=== PATIENT | male | born 1935 | race Caucasian/White ===

== ENCOUNTER 2017-01-28 13:18 | Inpatient (IN) ==
--- NOTE | 2017-01-28 13:45 | Emergency Department Report ---
Medical Clearance HPI - General Chief complaint: Medical Clearance Stated complaint: [facility] eval Time Seen by Provider: 01/28/17 13:36 Source: patient, RN notes reviewed, other (report from PA) Mode of arrival: wheelchair Limitations: altered mental status - History of Present Illness HPI Narrative: Pt presents from PA who report pt has become violent and dangerous to himself and others at the PA. Pt has a history of dementia. Is currently pleasant and answering questions, however inaccurate MD complaint: medical clearance requested Onset (ago): day(s) Reason for Medical Clearance: psychiatric condition Compliant with Home Medications: Yes Associated Symptoms: denies other symptoms Treatments Prior to Arrival: medication Home medications: Home Medications Medication Instructions Recorded Confirmed Acetaminophen 650 mg PO TID 01/28/17 01/28/17 Allopurinol [Zyloprim] 300 mg PO DAILY 01/28/17 01/28/17 Aspirin *EC* [Ecotrin] 81 mg PO DAILY 01/28/17 01/28/17 Carvedilol [Carvedilol] 6.25 mg PO BID 01/28/17 01/28/17 ClonazePAM [Klonopin] 1 mg PO HS 01/28/17 01/28/17 Clopidogrel Bisulfate [Clopidogrel] 75 mg PO DAILY 01/28/17 01/28/17 Furosemide [Lasix] 40 mg PO DAILY 01/28/17 01/28/17 Guaifenesin/P-Ephed 600/60 Tab 1 tab PO Q12HR 01/28/17 01/28/17 [Mucinex D] Insulin Glargine [Lantus] 22 units SQ BID 01/28/17 01/28/17 Lisinopril [Prinivil] 2.5 mg PO HS 01/28/17 01/28/17 Lovastatin [Mevacor] 20 mg PO HS 01/28/17 01/28/17 OLANZapine [Olanzapine] 5 mg PO DAILY 01/28/17 01/28/17 Oxycodone HCl [Oxaydo] 5 mg PO HS 01/28/17 01/28/17 Potassium Chloride [K-Tab ER] 20 meq PO DAILY 01/28/17 01/28/17 Ranitidine [Zantac] 150 mg PO BID 01/28/17 01/28/17 Tamsulosin [Flomax] 0.4 mg PO DAILY 01/28/17 01/28/17 Venlafaxine HCl [Venlafaxine HCl 150 mg PO HS 01/28/17 01/28/17 ER] Review of Systems Limitations: ROS unobtainable due to patient's medical condition PFS Patient Stated Medical History Cerebrovascular Accident Yes Dementia Yes Cataracts Yes Congestive Heart Failure Yes Myocardial Infarction Yes Chronic Obstructive Pulmonary Yes Disease (COPD) Diabetes Mellitus Type 2 Yes Gastroesophageal Reflux Yes Disease Hx Benign Prostatic Yes Hyperplasia Osteoarthritis Yes Physical Exam - Limitations Limitations: other (dementia) - General General appearance: alert, in no apparent distress - Normal Exams: Head:: Normocephalic without trauma Eyes:: Pupils are PERRLA w/ EOMI Neck:: Full range of motion, without adenopathy Chest/Respirations:: Clear all noel, with good airflow, and symmetry bilaterally Cardiovascular:: Regular rate and rhythm, without murmur or gallop, Pulses 2+ all extremities, capillary refill, <2 seconds all extremities Abdomen:: Bowel sounds positive, soft, non-tender, non-distended Musculoskeletal:: No tenderness, or deformity noted, good range of motion, all extremities Integumentary:: No rashes Neurological:: Patient is alert Psychiatric:: Patient exhibits, appropriate attention, emotion and affect Course Vital Signs Temperature 97.8 F 01/28/17 13:20 Pulse Rate 96 01/28/17 13:20 Respiratory Rate 16 01/28/17 13:20 Blood Pressure 153/65 H 01/28/17 13:20 Pulse Oximetry 97 01/28/17 13:20 Temperature 97.8 F 01/28/17 13:20 Pulse Rate 90 01/28/17 15:28 Respiratory Rate 16 01/28/17 15:28 Blood Pressure 130/61 01/28/17 15:28 Pulse Oximetry 94 01/28/17 15:28 Medical Clearance - MDM Narrative Medical decision making narrative: Labs and records reviewed and consistent with a UTI. Pt started on Levoquin and IVF. Dr Metzger notified and will admit to medical. Pt remains cooperative with staff and treatment - Differential Diagnosis Likely: urinary tract infection (dehydration, demntia, depression, psychosis) - Medical Records Attestation: I reviewed the patient's medical records. - Lab Data Attestation: I reviewed the patient's lab results. Result diagrams: 01/28/17 14:10 01/28/17 14:10 Lab Results 01/28/17 01/28/17 01/28/17 Range/Units 13:34 13:34 13:34 WBC (4.5-11.0) T/MM3 RBC (4.50-5.90) M/MM3 Hgb (13.5-17.5) GM/DL Hct (41-53) % MCV (80-100) UM3 MCH (26-34) UUG MCHC (31-37) GM/DL RDW Std Deviation (36.9-50.2) FL Plt Count (130-400) T/MM3 MPV (9.4-12.4) UM3 Immature Gran % (Auto) (0.0-0.5) % Neut % (Auto) (33-66) % Lymph % (Auto) (23-45) % Shelby % (Auto) (0-9.0) % Eos % (Auto) (0-4) % Baso % (Auto) (0-2) % Neut # (Auto) (1.8-7.7) T/MM3 Lymph # (Auto) (1-4.8) T/MM3 Shelby # (Auto) (0-0.8) T/MM3 Eos # (Auto) (0-0.5) T/MM3 Baso # (Auto) (0-0.2) T/MM3 Abs Immat Gran (auto) (0.00-0.03) T/MM3 Turbidity (0-20) Sodium (134-144) MEQ/L Potassium (3.6-5) MEQ/L Chloride (98-107) MEQ/L Carbon Dioxide (22-30) MEQ/L Anion Gap (5-15) MEQ/L BUN (9-20) MG/DL Creatinine (0.8-1.5) MG/DL GFR Calculation BUN/Creatinine Ratio (6-26) RATIO Glucose (75-110) MG/DL Calculated Osmolality (261-280) MOSM/KG Calcium (8.4-10.2) MG/DL Total Bilirubin (0.20-1.30) MG/DL Icterus Index (0-7) AST (17-59) U/L ALT (21-72) U/L Alkaline Phosphatase (38-126) U/L Total Protein (6.3-8.2) G/DL Albumin (3.5-5.0) G/DL Globulin (2.4-3.6) G/DL Albumin/Globulin Ratio (1.1-2.2) RATIO Specimen Hemolysis (0-25) Ur Collection Type Urine, clean catch Urine Color Yellow (YELLOW) Urine Clarity Sl cloudy Urine pH 7.0 (5.0-8.0) Ur Specific [place] 1.010 L (1.015-1.025) Urine Protein Negative (NEGATIVE) Urine Glucose (UA) Negative (NEGATIVE) Urine Ketones Negative (NEGATIVE) Urine Occult Blood Trace-intact (NEGATIVE) Urine Nitrate Negative (NEGATIVE) Urine Bilirubin Negative (NEGATIVE) Urine Urobilinogen 0.2 (NORMAL) EU/DL Ur Leukocyte Esterase 2+ A (NEGATIVE) Urine RBC 1-3 (0-3) /HPF Urine WBC 50-200 H (0-5) /HPF Urine Bacteria 3+ H (NEGATIVE) Ur Culture Indicated? Cult reflexed &setup Salicylates (2-20) MG/DL Urine Opiates Screen Negative ng/mL Ur Oxycodone Screen Positive ng/mL Urine Methadone Screen Negative ng/mL Ur Propoxyphene Screen Negative ng/mL Acetaminophen (10-30) UG/ML Ur Barbiturates Screen Negative ng/mL U Tricyclic Antidepress Negative ng/mL Ur Phencyclidine Scrn Negative ng/mL Ur Amphetamines Screen Negative ng/mL U Methamphetamines Scrn Negative ng/mL U Benzodiazepines Scrn Positive ng/mL Urine Cocaine Screen Negative ng/mL U Cannabinoids Screen Negative ng/mL Ur Drug Screen Confirm Sent out 01/28/17 01/28/17 Range/Units 14:10 14:10 WBC 7.0 (4.5-11.0) T/MM3 RBC 4.21 L (4.50-5.90) M/MM3 Hgb 12.0 L (13.5-17.5) GM/DL Hct 40.2 L (41-53) % MCV 95.5 (80-100) UM3 MCH 28.5 (26-34) UUG MCHC 29.9 L (31-37) GM/DL RDW Std Deviation 54.0 H (36.9-50.2) FL Plt Count 244 (130-400) T/MM3 MPV 10.2 (9.4-12.4) UM3 Immature Gran % (Auto) 0.1 (0.0-0.5) % Neut % (Auto) 62.2 (33-66) % Lymph % (Auto) 24.8 (23-45) % [place] % (Auto) 6.5 (0-9.0) % Eos % (Auto) 5.5 H (0-4) % Baso % (Auto) 0.9 (0-2) % Neut # (Auto) 4.4 (1.8-7.7) T/MM3 Lymph # (Auto) 1.7 (1-4.8) T/MM3 [place] # (Auto) 0.5 (0-0.8) T/MM3 Eos # (Auto) 0.4 (0-0.5) T/MM3 Baso # (Auto) 0.1 (0-0.2) T/MM3 Abs Immat Gran (auto) 0.01 (0.00-0.03) T/MM3 Turbidity < 20 (0-20) Sodium 142 (134-144) MEQ/L Potassium 4.4 (3.6-5) MEQ/L Chloride 108 H (98-107) MEQ/L Carbon Dioxide 27 (22-30) MEQ/L Anion Gap 7 (5-15) MEQ/L BUN 24.0 H (9-20) MG/DL Creatinine 1.0 (0.8-1.5) MG/DL GFR Calculation 71 BUN/Creatinine Ratio 24 (6-26) RATIO Glucose 180 H (75-110) MG/DL Calculated Osmolality 282 H (261-280) MOSM/KG Calcium 9.2 (8.4-10.2) MG/DL Total Bilirubin 0.30 (0.20-1.30) MG/DL Icterus Index < 2 (0-7) AST 14 L (17-59) U/L ALT 23 (21-72) U/L Alkaline Phosphatase 94 (38-126) U/L Total Protein 6.8 (6.3-8.2) G/DL Albumin 3.5 (3.5-5.0) G/DL Globulin 3.3 (2.4-3.6) G/DL Albumin/Globulin Ratio 1.1 (1.1-2.2) RATIO Specimen Hemolysis < 15 (0-25) Ur Collection Type Urine Color (YELLOW) Urine Clarity Urine pH (5.0-8.0) Ur Specific [place] (1.015-1.025) Urine Protein (NEGATIVE) Urine Glucose (UA) (NEGATIVE) Urine Ketones (NEGATIVE) Urine Occult Blood (NEGATIVE) Urine Nitrate (NEGATIVE) Urine Bilirubin (NEGATIVE) Urine Urobilinogen (NORMAL) EU/DL Ur Leukocyte Esterase (NEGATIVE) Urine RBC (0-3) /HPF Urine WBC (0-5) /HPF Urine Bacteria (NEGATIVE) Ur Culture Indicated? Salicylates < 1.0 L (2-20) MG/DL Urine Opiates Screen ng/mL Ur Oxycodone Screen ng/mL Urine Methadone Screen ng/mL Ur Propoxyphene Screen ng/mL Acetaminophen < 10 L (10-30) UG/ML Ur Barbiturates Screen ng/mL U Tricyclic Antidepress ng/mL Ur Phencyclidine Scrn ng/mL Ur Amphetamines Screen ng/mL U Methamphetamines Scrn ng/mL U Benzodiazepines Scrn ng/mL Urine Cocaine Screen ng/mL U Cannabinoids Screen ng/mL Ur Drug Screen Confirm Disposition Clinical Impression: Urinary tract infection Qualifiers: Urinary tract infection type: acute cystitis Hematuria presence: with hematuria Qualified Code(s): N30.01 - Acute cystitis with hematuria Dementia Qualifiers: Dementia type: unspecified type Dementia behavioral disturbance: with behavioral disturbance Qualified Code(s): F03.91 - Unspecified dementia with behavioral disturbance [place]: 02 To [facility] [place] Care Condition: Improved Prescriptions: No Action Aspirin *EC* [Ecotrin] 81 mg PO DAILY Allopurinol [Zyloprim] 300 mg PO DAILY Acetaminophen 650 mg PO TID Clopidogrel Bisulfate [Clopidogrel] 75 mg PO DAILY Guaifenesin/P-Ephed 600/60 Tab [Mucinex D] 1 tab PO Q12HR Lisinopril [Prinivil] 2.5 mg PO HS Insulin Glargine [Lantus] 22 units SQ BID Venlafaxine HCl [Venlafaxine HCl ER] 150 mg PO HS Ranitidine [Zantac] 150 mg PO BID Potassium Chloride [K-Tab ER] 20 meq PO DAILY Carvedilol [Carvedilol] 6.25 mg PO BID ClonazePAM [Klonopin] 1 mg PO HS Furosemide [Lasix] 40 mg PO DAILY Oxycodone HCl [Oxaydo] 5 mg PO HS Lovastatin [Mevacor] 20 mg PO HS Tamsulosin [Flomax] 0.4 mg PO DAILY OLANZapine [Olanzapine] 5 mg PO DAILY Time of Disposition: 15:48 - Seen By: midlevel
--- OUTSIDE RECORDS SUMMARY | 2017-01-28 14:02 | External Medical Summary | Clinical Summary ---
:[address] [facility] Address [address] [address] Phone Support Name Relationship Address Phone Unavailable Unavailable [address] [place] [address] Unavailable Unavailable Unavailable Unavailable Allergies Active Allergy Reactions Severity Noted Date Comments Diazepam arms swell Hydromorphone severe drowsiness (Too loopy) Indomethacin Unknown Pneumococcal Vaccine Swelling 05/05/2015 Current Medications Prescription Sig. Disp. Refills Start Date End Date Status aspirin EC One po daily 0 0 08/21/2012 Active (ECOTRIN) 81 MG EC tablet nitroglycerin One under your 25 tablet 1 10/12/2015 Active (NITROSTAT) 0.4 MG tongue every 5 SL tablet minutes for chest pain (max 3 doses) Blood Glucose Glucose 1 each 0 10/12/2015 Active Monitoring Suppl Monitor: Use to [facility] check blood glucose three times daily, Dx: E11.65 ONETOUCH DELICA USE UP TO THREE 100 each 3 04/18/2016 Active LANCETS 33G TIMES A DAY MISCIndications: (DX: E11.65) Type 2 diabetes mellitus with complication, with long-term current use of insulin ([facility]) ONETOUCH ULTRA BLUE USE TO TEST UP 100 strip 4 06/27/2016 Active test TO THREE TIMES stripIndications: A DAY (DX: Uncontrolled type 2 E11.65) diabetes mellitus with diabetic polyneuropathy, with long-term current use of insulin ([facility]) venlafaxine Take 1 capsule 30 capsule 4 08/05/2016 Active (EFFEXOR-XR) 150 MG (150 mg total) 24 hr capsule by mouth daily. Insulin USE TWO TIMES 180 each 3 08/07/2016 Active Syringe-Needle DAILY FOR U-100 (B-D INS SYR LANTUS ULTRAFINE 1CC/30G) INJECTIONS 30G X 1/2" 1 ML MISCIndications: Type 2 diabetes mellitus with complication, with long-term current use of insulin ([facility]) tamsulosin (FLOMAX) Take 1 capsule 30 capsule 5 08/12/2016 Active 0.4 MG (0.4 mg total) CAPSIndications: by mouth daily. Benign non-nodular prostatic hyperplasia with lower urinary tract symptoms lovastatin TAKE ONE TABLET 30 tablet 5 08/12/2016 Active (MEVACOR) 20 MG BY MOUTH EVERY tabletIndications: NIGHT AT Mixed BEDTIME hyperlipidemia lisinopril TAKE 1 TABLET 30 tablet 5 08/12/2016 Active (PRINIVIL,ZESTRIL) BY MOUTH ONCE 2.5 MG DAILY. tabletIndications: Essential hypertension clopidogrel Take 1 tablet 30 tablet 5 08/12/2016 Active (PLAVIX) 75 MG (75 mg total) tabletIndications: by mouth daily. Chronic systolic heart failure (HCC) carvedilol (COREG) Take 1 tablet 60 tablet 08/12/2016 Active 6.25 MG (6.25 mg total) tabletIndications: by mouth 2 Chronic systolic (two) times heart failure (HCC) daily. with meals allopurinol Take 1 tablet 30 tablet 5 08/12/2016 Active (ZYLOPRIM) 300 MG (300 mg total) tablet by mouth daily. furosemide (LASIX) Take 1 tablet 30 tablet 5 08/13/2016 Active 40 MG tablet (40 mg total) by mouth daily. NEXIUM 40 MG TAKE ONE 30 capsule 08/13/2016 Active capsule CAPSULE BY MOUTH DAILY potassium chloride Take 20 mEq by Active SA (K-DUR,KLOR-CON) mouth daily. 20 MEQ tablet oxyCODONE Take 1 tablet 30 tablet 0 01/13/2017 Active (ROXICODONE) 5 MG (5 mg total) by immediate release mouth at tablet bedtime. May also take once daily PRN Earliest Fill Date: 01/13/17 ranitidine (ZANTAC) Take 150 mg by 01/13/2017 Active 150 MG tablet mouth 2 (two) times daily. insulin glargine Inject 0.22 mLs 90 mL 2 01/13/2017 Active (LANTUS) 100 (22 Units UNIT/ML total) into the injectionIndication skin 2 (two) s: Uncontrolled times daily. type 2 diabetes mellitus with diabetic polyneuropathy, with long-term current use of insulin ([facility]) clonazePAM TAKE ONE TABLET 28 tablet 0 01/16/2017 Active (KLONOPIN) 1 MG BY MOUTH tablet NIGHTLY OLANZapine Take 1 tablet 30 tablet 3 01/22/2017 Active (ZYPREXA) 5 MG (5 mg total) by tabletIndications: mouth at Late onset bedtime. Alzheimer's disease with behavioral disturbance acetaminophen Take 1 tablet 30 tablet 0 01/24/2017 Active (TYLENOL 8 HOUR (650 mg total) ARTHRITIS PAIN) 650 by mouth 3 MG CR tablet (three) times daily. Cream Base (PCCA Give 0.5ml 1 g 0 01/27/2017 Active LIPODERM BASE) CREA topically as needed every 6 hours for agitation. insulin glargine Inject 0.2 mLs 90 mL 2 11/05/2016 Discontinued (LANTUS) 100 (20 Units 7 UNIT/ML total) into the injectionIndication skin 2 (two) s: Uncontrolled times daily. type 2 diabetes mellitus with diabetic polyneuropathy, with long-term current use of insulin (HCC) oxycodone-acetamino Take 1-2 168 tablet 0 12/05/2016 Discontinued phen (PERCOCET) tablets by 7 5-325 mouth every 4 MGIndications: (four) hours as Chronic pain needed for syndrome Moderate Pain. Earliest Fill Date: 12/05/16 oxyCODONE Take 1 tablet 30 tablet 0 12/19/2016 Discontinued (ROXICODONE) 5 MG (5 mg total) by 7 immediate release mouth at tablet bedtime. May also take once daily PRN clonazePAM TAKE ONE TABLET 28 tablet 0 12/20/2016 Discontinued (KLONOPIN) 1 MG BY MOUTH 7 tablet NIGHTLY Liniments Apply topically Discontinued (MEDICATED SKIN every 4 (four) 7 CREAM EX) hours as needed. Ativan cream. Cream Base (PCCA Give 0.5ml 1 g 0 01/14/2017 Discontinued LIPODERM BASE) CREA topically as 7 needed every 6 hours for agitation. Active Problems Patient Care Coordination Note [facility] Problem Noted Date Late onset Alzheimer's disease with behavioral disturbance 01/13/2017 Last Assessment & Plan: Recent behaviors with anger outbursts and disruptive behaviors. Start Zyprexa as ordered. Consult Dr Harrington. Notify office of continued or worsened behaviors. Hold plan to discharge at this time. Type 2 diabetes mellitus without complication, with long-term current use of insulin ([facility]) Last Assessment & Plan: Blood sugars are overall elevated. Increase Lantus insulin to 22 units twice daily. Send blood sugar trends to office after one to weeks. Functional urinary incontinence 10/15/2016 Chronic systolic heart failure (HCC) 10/27/2015 Last Assessment & Plan: Stable. Continue current management. Coronary artery disease involving coronary bypass graft of [place] [facility] 2015 without angina pectoris Non-ST elevation MO (NSTEMI) ([facility]) 10/27/2015 Alzheimer's disease 05/05/2015 Mixed hyperlipidemia Essential hypertension Last Assessment & Plan: Blood pressure is currently controlled. Continue current management with carvedilol, lisinopril. 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 Not on anticoagulation due to high fall risk. Continue same. Dysthymic disorder Other chronic pain Type 2 diabetes mellitus, uncontrolled ([facility]) Obesity, unspecified Encounters Date Type Specialty Care Team Description 01/28/2017 Telephone Hussain Hsu MD Calling For Orders 01/27/2017 Telephone Hussain Hsu MD Calling For Orders 01/24/2017 Telephone Hussain Hsu MD Calling For Orders 01/22/2017 Skilled Nursing Madison Manjarrez, Late onset Alzheimer's [employer] disease with behavioral disturbance (Primary Dx) 01/21/2017 Telephone Madison Manjarrez, Results (faxed to [facility] home. ) 01/20/2017 Orders Only Link, Onbase 01/16/2017 Refill Madison Manjarrez, Medication Refill [employer] 01/15/2017 Telephone Madison Manjarrez, Medication Management [employer] (refill resend) 01/14/2017 Refill Madison Manjarrez, Medication Refill [employer] 01/13/2017 Skilled Nursing Madison Manjarrez, Chronic systolic heart [employer] failure (HCC) (Primary Dx);Late onset Alzheimer's disease with behavioral disturbance;Chronic atrial fibrillation (HCC);Essential hypertension;Type 2 diabetes mellitus without complication, with long-term current use of insulin ([facility]);Uncontrolled type 2 diabetes mellitus with diabetic polyneuropathy, with long-term current use of insulin ([facility]) 01/13/2017 Abstract Madison Manjarrez, [employer] 01/13/2017 Telephone Fell, Garfield Elizabeth, Medication Management [employer] (review of medication per [facility] pharmacy) 01/13/2017 Refill Fell, Garfield Elizabeth, Medication Refill [employer] 01/13/2017 Telephone Fell, Garfield Elizabeth, Calling For Orders [employer] (increased agitation) 01/07/2017 Telephone Fell Garfield Elizabeth, Results (lab completed at [facility]) 12/30/2016 Skilled Nursing Fell, Garfield Elizabeth, Acute cystitis without [employer] hematuria (Primary Dx);Acute right hemiparesis (HCC);Chronic systolic heart failure (HCC);Late onset Alzheimer's disease with behavioral disturbance;Essential hypertension;Type 2 diabetes mellitus without complication, with long-term current use of insulin (HCC) 12/26/2016 Orders Only Link, Onbase 12/24/2016 Telephone Fell Garfield Elizabeth, Calling For Orders [employer] (medication review) 12/24/2016 Telephone Josseline Garfield Elizabeth, Calling For Orders [employer] (requesting lab) 12/23/2016 [facility] Scan Link, Onbase 12/23/2016 Telephone Josseline Garfield Elizabeth, Calling For Orders [employer] (witnessed floor) 12/20/2016 Telephone Hussain Hsu MD Calling With Results 12/20/2016 Refill Madison Manjarrez Elizabeth, Medication Refill [employer] 12/19/2016 Telephone Coco Manjarrezl Elizabeth, Calling For Orders [employer] (medication management) 12/17/2016 Orders Only Hussain Hsu MD Acute right hemiparesis (HCC) (Primary Dx) 12/16/2016 Office Visit Hussain Hsu MD Acute right hemiparesis (HCC) (Primary Dx);Chronic systolic heart failure (HCC);Late onset Alzheimer's disease with behavioral disturbance;Essential hypertension;Chronic atrial fibrillation (HCC);Dysthymic disorder;Uncontrolled type 2 diabetes mellitus with diabetic polyneuropathy, with long-term current use of insulin (HCC);Coronary artery disease involving coronary bypass graft of [place] without angina pectoris 12/16/2016 Telephone Josseline, Garfield Elizabeth, Results (lab results [employer] reviewed) 12/13/2016 Telephone Josseline Garfield Elizabeth, Calling For Orders [employer] 12/12/2016 [facility] Scan Link, Onbase 12/12/2016 Abstract Hussain Hsu MD 12/11/2016 Refill JosselineMadisongy, Medication Refill [employer] 12/05/2016 Refill Hussain Hsu MD Medication Refill 11/05/2016 Refill Hussain Hsu MD Medication Refill from Last 3 Months Immunizations Name Dates Previously Given Next Due INFLUENZA IIV3 HD (Adults=>65 12/07/2016, 12/05/2014, 11/15/2013 y/o-FLUZONE HD) Influenza IIV3 PFree 01/06/2012, 01/04/2011, 11/25/2008, 01/26/2008, 12/30/2006, 12/30/2005 Influenza TIV (HX thru Nov 30 2009) 12/16/2003 Pneumococcal Polysaccharide (23-valent) 03/03/2001 Td(adult), adsorbed 08/11/1998 Tdap 08/22/2014 Family History Medical History Relation Name Comments No Known Problems Father No Known Problems Mother Relation Name Status Comments Father Mother Social History Tobacco Use Types Packs/Day Years Used Date Former Smoker Smokeless Tobacco: Never Used Tobacco Cessation: Counseling Given: No Comments: Quit smoking: Year stopped 1997/Number of yrs: 35.00/Packs per day: 2.00/Pac* Alcohol Use Drinks/Week oz/Week Comments No Alcoholic Drinks/day: Never Sex Assigned at Date Recorded Not on file Last Filed Vital Signs Vital Sign Reading Time Taken Blood Pressure 124/78 12/16/2016 9:56 AM CDT Pulse 70 12/16/2016 9:56 AM CDT Temperature 36.8 C (98.2 F) 10/15/2016 11:21 AM CDT Respiratory Rate 20 10/15/2016 11:21 AM CDT Oxygen Saturation 97% 10/15/2016 11:21 AM CDT Inhaled Oxygen Concentration - - Weight 99.3 kg (219 lb) 10/15/2016 11:21 AM CDT Height 162.6 cm (5' 4.02") 12/16/2016 9:56 AM CDT Body Mass Index 37.57 10/15/2016 11:21 AM CDT Plan of Treatment Health Maintenance Due Date Last Done Comments Zoster Vaccine (#1) 1993 Annual Wellness Visit 08/03/1999 Ophthalmology Exam 09/20/2007 09/19/2006 Diabetic Foot Exam 12/06/2015 12/05/2014, 11/15/2013, 11/15/2013, Additional history exists DTaP,Tdap,and Td Vaccines (2 - Td) 08/22/2024 08/22/2014, 08/11/1998 Influenza Vaccine Completed 12/07/2016, 12/05/2014, 11/15/2013, Additional history exists Goals Patient Goal Type Goal Recent Progress Patient-Stated? Author Weight Weight (lb) < 99.3 kg (219 lb) Hussain Coulter K, 200 (10/15/2016 11:21 MD RUIZ CDT) Results MRI Brain (without contrast) (12/20/2016) Impressions See scanned document and phone note dated 12-20-16 from Last 3 Months
--- OUTSIDE RECORDS SUMMARY | 2017-01-28 14:02 | External Medical Summary | Encounter Summary ---
:1935 Author Organization [facility] Address [address] [address] Phone Care Team Providers Name Role Phone Unavailable Primary Care Provider Unavailable Reason for Visit Reason Comments Calling For Orders Encounter Details Date Type Department Care Team Description 01/28/2017 Telephone Cotton Miki`Jose Juan Internal Hussain Hsu MD Calling For Orders Medicine - [place] [address] [place] [address] [place] [phone] [id number] Social History Tobacco Use Types Packs/Day Years Used Date Former Smoker Smokeless Tobacco: Never Used Comments: Quit smoking: Year stopped 1997/Number of yrs: 35.00/Packs per day: 2.00/Pac* Alcohol Use Drinks/Week oz/Week Comments No Alcoholic Drinks/day: Never Sex Assigned at Date Recorded Not on file as of this encounter Plan of Treatment Not on fileas of this encounter Goals Patient Goal Type Goal Recent Progress Patient-Stated? Author Weight Weight (lb) < 99.3 kg (219 lb) No Hussain Hsu, 200 (10/15/2016 11:21 MD RUIZ CDT) as of this encounter Visit Diagnoses Not on filein this encounter
--- OUTSIDE RECORDS SUMMARY | 2017-01-28 14:03 | External Medical Summary | Encounter Summary ---
:1935 Author Organization [facility] Address [address] [address] Phone Care Team Providers Name Role Phone Unavailable Primary Care Provider Unavailable Reason for Visit Reason Comments Calling For Orders Encounter Details Date Type Department Care Team Description 01/27/2017 Telephone Cotton Miki`Jose Juan Internal Hussain Hsu MD Calling For Orders Medicine - [place] [address] [place] [address] [place] [phone] [id number] Social History Tobacco Use Types Packs/Day [...]
--- OUTSIDE RECORDS SUMMARY | 2017-01-28 14:03 | External Medical Summary | Encounter Summary ---
:1935 Author Organization [facility] Address [address] [address] Phone Care Team Providers Name Role Phone Unavailable Primary Care Provider Unavailable Reason for Visit Reason Comments Results faxed to long-term. Encounter Details Date Type Department Care Team Description 01/21/2017 Telephone Mendez Guerrero Internal Madison Manjarrez, Results ( faxed to [facility]. ) [address] [place] [address] [place] [address] Social History Tobacco Use Types Packs/Day Years [...] < 99.3 kg (219 lb) No Hussain Hsu K, 200 (10/15/2016 11:21 MD RUIZ CDT) as of this encounter Visit Diagnoses Not on filein this encounter
--- OUTSIDE RECORDS SUMMARY | 2017-01-28 14:03 | External Medical Summary | Encounter Summary ---
:1935 Author Organization [facility] Address [address] [address] Phone Care Team Providers Name Role Phone Unavailable Primary Care Provider Unavailable Reason for Visit Reason Comments Calling For Orders Encounter Details Date Type Department Care Team Description 01/24/2017 Telephone Cotton Miki`Jose Juan Internal Hussain Hsu MD Calling For Orders Medicine - [place] [address] [place] [address] [place] [phone] Social History Tobacco Use Types Packs/Day [...]
--- OUTSIDE RECORDS SUMMARY | 2017-01-28 14:03 | External Medical Summary | Encounter Summary ---
:1935 Author Organization [facility] Address [address] [address] Phone Care Team Providers Name Role Phone Unavailable Primary Care Provider Unavailable Reason for Visit Reason Comments Acute Visit Agitation Encounter Details Date Type Department Care Team Description 01/22/2017 Detention Cotton O`Jose Juan Internal Madison Manjarrez Late onset Alzheimer's Medicine - [place] Johnson APRN disease with behavioral [address] disturbance ([place] [address] [place]) [phone] [address] Social History Tobacco Use Types Packs/Day Years Used Date Former Smoker Smokeless Tobacco: Never Used Comments: Quit smoking: Year stopped 1997/Number of yrs: 35.00/Packs per day: 2.00/Pac* Alcohol Use Drinks/Week oz/Week Comments No Alcoholic Drinks/day: Never Sex Assigned at Date Recorded Not on file as of this encounter Progress Notes Madison Manjarrez APRN - 01/22/2017 2:20 PM CSTFormatting of this note may be different from the original. [facility], [facility] Progress Note 01/22/2017 Name: Raffi Sandoval : 1935 Facility: [facility] Type of Visit: Acute Visit Raffi Sandoval is a 81 y.o. male who had concerns including Acute Visit and Agitation. HPI/Current Issues: Patient is seen this day for increased in behaviors. Order provided earlier this day for an extra when necessary dose of topical lorazepam due to agitation. Patient yelling at the nurses was belligerent behavior, urinating on himself up at the nurses desk. Prescribed anti-anxiety medications already utilized. I did go to assess patient at this visit, however he appeared to be resting peacefully in his room. I did not awaken him. The patient is wanting to return home. According to nursing staff, the daughter wants him to be ableto ambulate or have some increased care of himself prior to coming home. Physical therapy had planned to do a home visit to assess for safety measures. Patient Active Problem List Diagnosis Mixed hyperlipidemia Essential hypertension longterm (current) use of anticoagulants Atrial fibrillation ([facility]) Dysthymic disorder Other chronic pain Type 2 diabetes mellitus, uncontrolled ([facility]) Obesity, unspecified Alzheimer's disease Chronic systolic heart failure ([facility]) Coronary artery disease involving coronary bypass graft of qagan tayagungin heart without angina pectoris Non-ST elevation MA (NSTEMI) ([facility]) Functional urinary incontinence Late onset Alzheimer's disease with behavioral disturbance Type 2 diabetes mellitus without complication, with long-term current use of insulin ([facility]) Past Medical History: Diagnosis Date Alzheimer's disease 05/05/2015 Chest pain, unspecified Admit Date: [id number]; [facility]; Hussain Hsu MD; [facility] Chronic systolic heart failure (HCC) 10/27/2015 Essential hypertension Mixed hyperlipidemia [facility] Past Hospitalization Admit on: [id number]; Diagnosis: Gouty arthritis with lt. ankle pain; at: [facility]; Keith aVzquez MD; [facility] Non-ST elevation MA (NSTEMI) ([facility]) 10/27/2015 Current Outpatient Prescriptions: allopurinol (ZYLOPRIM) 300 MG tablet, Take 1 tablet (300 mg total) by mouth daily., Disp: 30 tablet, Rfl: 5 aspirin EC (ECOTRIN) 81 MG EC tablet, One po daily, Disp: 0, Rfl: 0 Blood Glucose Monitoring Suppl [facility], Glucose Monitor: Use to check blood glucose three times daily, Dx: E11.65, Disp: 1 each, Rfl: 0 carvedilol (COREG) 6.25 MG tablet, Take 1 tablet (6.25 mg total) by mouth 2 (two) times daily. with meals, Disp: 60 tablet, Rfl: 5 clonazePAM (KLONOPIN) 1 MG tablet, TAKE ONE TABLET BY MOUTH NIGHTLY, Disp: 28 tablet, Rfl: 0 clopidogrel (PLAVIX) 75 MG tablet, Take 1 tablet (75 mg total) by mouth daily., Disp: 30 tablet, Rfl: 5 Cream Base (PCCA LIPODERM BASE) CREA, Give 0.5ml topically as needed every 6 hours for agitation., Disp: 1 g, Rfl: 0 furosemide (LASIX) 40 MG tablet, Take 1 tablet (40 mg total) by mouth daily., Disp: 30 tablet, Rfl: 5 insulin glargine (LANTUS) 100 UNIT/ML injection, Inject 0.22 mLs (22 Units total) into the skin2 (two) times daily., Disp: 90 mL, Rfl: 2 Insulin Syringe-Needle U-100 (B-D INS SYR ULTRAFINE 1CC/30G) 30G X 1/2" 1 ML MISC, USE TWO TIMES DAILY FOR LANTUS INJECTIONS, Disp: 180 each, Rfl: 3 lisinopril (PRINIVIL,ZESTRIL) 2.5 MG tablet, TAKE 1 TABLET BY MOUTH ONCE DAILY., Disp: 30 tablet, Rfl: 5 lovastatin (MEVACOR) 20 MG tablet, TAKE ONE TABLET BY MOUTH EVERY NIGHT AT BEDTIME, Disp: 30 tablet, Rfl: 5 NEXIUM 40 MG capsule, TAKE ONE CAPSULE BY MOUTH DAILY, Disp: 30 capsule, Rfl: 5 nitroglycerin (NITROSTAT) 0.4 MG SL tablet, One under your tongue every 5 minutes for chest pain (max 3 doses), Disp: 25 tablet, Rfl: 1 OLANZapine (ZYPREXA) 5 MG tablet, Take 1 tablet (5 mg total) by mouth at bedtime., Disp: 30 tablet, Rfl: 3 ONETOUCH DELICA LANCETS 33G MISC, USE UP TO THREE TIMES A DAY (DX: E11.65) , Disp: 100 each, Rfl: 3 ONETOUCH ULTRA BLUE test strip, USE TO TEST UP TO THREE TIMES A DAY (DX: E11.65), Disp: 100 strip, Rfl: 4 oxyCODONE (ROXICODONE) 5 MG immediate release tablet, Take 1 tablet (5 mg total) by mouth at bedtime. May also take once daily PRN Earliest Fill Date: , Disp: 30 tablet, Rfl: 0 potassium chloride SA (K-DUR,KLOR-CON) 20 MEQ tablet, Take 20 mEq by mouth daily., Disp: , Rfl: ranitidine (ZANTAC) 150 MG tablet, Take 150 mg by mouth 2 (two) times daily., Disp: , Rfl: tamsulosin (FLOMAX) 0.4 MG CAPS, Take 1 capsule (0.4 mg total) by mouth daily., Disp: 30 capsule, Rfl: 5 venlafaxine (EFFEXOR-XR) 150 MG 24 hr capsule, Take 1 capsule (150 mg total ) by mouth daily., Disp: 30 capsule, Rfl: 4 ~(Please see current medication tab for complete and accurate medication profile.) Allergies Allergen Reactions Diazepam arms swell Hydromorphone severe drowsiness (Too loopy) Indomethacin Unknown Pneumococcal Vaccine Swelling Family History Problem Relation Age of Onset No Known Problems Mother No Known Problems Father Social History Social History Marital status: Spouse name: N/A Number of children: N/A Years of education: Some High school Social History Main Topics Smoking status: Former Smoker Smokeless tobacco: Never Used Comment: Quit smoking: Year stopped 1997/Number of yrs: 35.00/Packs per day: 2.00/Pac* Alcohol use No Comment: Alcoholic Drinks/day: Never Drug use: No Sexual activity: No Other Topics Concern Caffeine Concern Yes Coffee, tea, pop, chocolate/5 cups /day Seat Belt Yes 100 % Permanently Non-Ambulatory? No Social History Narrative Review of Systems: Review of Systems Unable to perform ROS: Other (Resting after administration of topical lorazepam. ) Physical Exam: Last documented Vitals: 122/65, 97.3, 90, 18, 95% room air. Physical Exam Constitutional: He appears well-developed and well-nourished. Sleeping /resting at this time, lying in bed in his room; no sign or symptom of pain or distress appreciated. Cardiovascular: Normal rate. Pulmonary/Chest: Effort normal. Abdominal: Normal appearance. Musculoskeletal: Normal range of motion. Neurological: He is alert. Labs: Reviewed in chart Code Status: Do Not Resuscitate Assessment and Plan: 1. Late onset Alzheimer's disease with behavioral disturbance Assessment & Plan: Recent behaviors with anger outbursts and disruptive behaviors. Start Zyprexa as ordered. Consult Dr Harrington. Notify office of continued or worsened behaviors. Hold plan to discharge at this time. Orders: - OLANZapine (ZYPREXA) 5 MG tablet; Take 1 tablet (5 mg total) by mouth at bedtime. Follow-up: Follow up PRN and per facility protocol. Elizabeth Manjarrez APRN Electronic Signature 01/22/2017 4:29 PM in this encounter Plan of Treatment Not on fileas of this encounter Goals Patient Goal Type Goal Recent Progress Patient-Stated? Author Weight Weight (lb) < 99.3 kg (219 lb) Hussain Coulter K, 200 (10/15/2016 11:21 MD RUIZ CDT) as of this encounter Visit Diagnoses Diagnosis Late onset Alzheimer's disease with behavioral disturbance - Primary in this encounter
--- OUTSIDE RECORDS SUMMARY | 2017-01-28 14:04 | External Medical Summary | Encounter Summary ---
:1935 Author Organization [facility] Address [address] [address] Phone Care Team Providers Name Role Phone Unavailable Primary Care Provider Unavailable Reason for Visit Reason Comments Medication Refill Encounter Details Date Type Department Care Team Description 01/16/2017 Refill Cotton O`Jose Juan Internal Madison Manjarrez, Medication Refill Medicine - [place] NURSE TECHNICIAN [address] [place] [address] [place], [place] [id number] Social History Tobacco Use Types Packs/Day Years [...]
--- OUTSIDE RECORDS SUMMARY | 2017-01-28 14:04 | External Medical Summary | Encounter Summary ---
:1935 Author Organization [facility] Address [address] [address] Phone Care Team Providers Name Role Phone Unavailable Primary Care Provider Unavailable Reason for Visit Reason Comments Medication Refill Encounter Details Date Type Department Care Team Description 01/14/2017 Refill Cotton O`Jose Juan Internal Madison Manjarrez, Medication Refill Medicine - [place] PROFESSOR COMPUTER SCIENCE [address] [place] [address] [place], [place] [address] Social History Tobacco Use Types Packs/Day Years [...]
--- OUTSIDE RECORDS SUMMARY | 2017-01-28 14:04 | External Medical Summary | Encounter Summary ---
:1935 Author Organization [facility] Address [address] [address] Phone Care Team Providers Name Role Phone Unavailable Primary Care Provider Unavailable Reason for Visit Reason Comments Medication Management refill resend Encounter Details Date Type Department Care Team Description 01/15/2017 Telephone Mendez Guerrero Internal Madison Manjarrez, Medication Management Medicine - [place] WAGE CONCILIATOR (refill resend) [address] [place] [address] [place] [id number] Social History Tobacco Use Types Packs/Day Years [...]
--- OUTSIDE RECORDS SUMMARY | 2017-01-28 14:04 | External Medical Summary | Encounter Summary ---
:1935 Author Organization [facility] Address [address] [address] Phone Care Team Providers Name Role Phone Unavailable Primary Care Provider Unavailable Encounter Details Date Type Department Care Team Description 01/20/2017 Orders Only MULTIPLE TESTS Link, [facility], [place] Social History Tobacco Use Types Packs/Day Years Used Date Former Smoker Smokeless Tobacco: Never Used Comments: Quit smoking: Year stopped 1997/Number of yrs: 35.00/Packs per day: 2.00/Pac* Alcohol Use Drinks/Week oz/Week Comments No Alcoholic Drinks/day: Never Sex Assigned at Date Recorded Not on file as of this encounter Plan of Treatment Pending Results Name Priority Associated Diagnoses Date/Time EXTERNAL LAB TEST 01/14/2017 12:00 AM SAVINGS COUNSELOR as of this encounter Goals Patient Goal Type Goal Recent Progress Patient-Stated? Author Weight Weight (lb) < 99.3 kg (219 lb) Hussain Coulter, 200 (10/15/2016 11:21 MD RUIZ CDT) as of this encounter Visit Diagnoses Not on filein this encounter
--- OUTSIDE RECORDS SUMMARY | 2017-01-28 14:05 | External Medical Summary | Encounter Summary ---
:1935 Author Organization [facility] Address [address] [address] Phone Care Team Providers Name Role Phone Unavailable Primary Care Provider Unavailable Encounter Details Date Type Department Care Team Description 01/13/2017 Abstract Mendez Guerrero Internal Madison Manjarrez APRN Medicine - [place] [address] [place] [address] [place] [address] [place] [address] [phone] Social History Tobacco Use Types Packs/Day Years Used Date Former Smoker Smokeless Tobacco: Never Used Comments: Quit smoking: Year stopped 1997/Number of yrs: 35.00/Packs per day: 2.00/Pac* Alcohol Use Drinks/Week oz/Week Comments No Alcoholic Drinks/day: Never Sex Assigned at Date Recorded Not on file as of this encounter Progress Notes Senait Ramírez MA - 01/13/2017 4:26 PM CSTReceived active medication list from Long-Term. Updated medication list. in this encounter Plan of Treatment Not on fileas of this encounter Goals Patient Goal Type Goal Recent Progress Patient-Stated? Author Weight Weight (lb) < 99.3 kg (219 lb) No Hussain Hsu K, 200 (10/15/2016 11:21 MD RUIZ CDT) as of this encounter Visit Diagnoses Not on filein this encounter
--- OUTSIDE RECORDS SUMMARY | 2017-01-28 14:06 | External Medical Summary | Encounter Summary ---
:1935 Author Organization [facility] Address [address] [address] Phone Care Team Providers Name Role Phone Unavailable Primary Care Provider Unavailable Reason for Visit Reason Comments Medication Management review of medication per [facility] Encounter Details Date Type Department Care Team Description 01/13/2017 Telephone Madison Samuel, Medication Management Medicine - [place] ROJO (review of medication [address] per [facility]) [place] [address] [place] [address] Social History Tobacco Use Types [...]
--- OUTSIDE RECORDS SUMMARY | 2017-01-28 14:06 | External Medical Summary | Encounter Summary ---
:1935 Author Organization [facility] Address [address] [address] Phone Care Team Providers Name Role Phone Unavailable Primary Care Provider Unavailable Reason for Visit Reason Comments Medication Refill Encounter Details Date Type Department Care Team Description 01/13/2017 Refill Cotton O`Jose Juan Internal Madison Manjarrez, Medication Refill Medicine - [place] OIL WELL DRILLING MANAGER [address] [place] [address] [place], [place] [address] Social History Tobacco Use Types Packs/Day Years [...]
--- OUTSIDE RECORDS SUMMARY | 2017-01-28 14:07 | External Medical Summary | Encounter Summary ---
:1935 Author Organization [facility] Address [address] [address] Phone Care Team Providers Name Role Phone Unavailable Primary Care Provider Unavailable Reason for Visit Reason Comments Results lab completed at [facility] Encounter Details Date Type Department Care Team Description 01/07/2017 Telephone Mendez Guerrero Internal Madison Manjarrez, Results (lab completed Medicine - [place] ON AIR DIRECTOR at [facility] [address] [facility] [place] [address] [place] [address] Social History Tobacco Use Types Packs/Day Years Used Date Former Smoker Smokeless Tobacco: Never Used Comments: Quit smoking: Year stopped 1997/Number of yrs: 35.00/Packs per day: 2.00/Pac* Alcohol Use Drinks/Week oz/Week Comments No Alcoholic Drinks/day: Never Sex Assigned at Date Recorded Not on file as of this encounter Plan of Treatment Pending Results Name Priority Associated Diagnoses Date/Time EXTERNAL LAB TEST 01/05/2017 12:00 AM CDT as of this encounter Goals Patient Goal Type Goal Recent Progress Patient-Stated? Author Weight Weight (lb) < 99.3 kg (219 lb) No Hussain Hsu K, 200 (10/15/2016 11:21 MD AM CDT) as of this encounter Visit Diagnoses Not on filein this encounter
--- OUTSIDE RECORDS SUMMARY | 2017-01-28 14:07 | External Medical Summary | Encounter Summary ---
:1935 Author Organization [facility] Address [address] [address] Phone Care Team Providers Name Role Phone Unavailable Primary Care Provider Unavailable Reason for Visit Reason Comments Monthly Follow Up Encounter Details Date Type Department Care Team Description 01/13/2017 [facility] Cotton O`Jose Juan Internal Madison Manjarrez Chronic systolic heart Medicine - [place] Johnson, CONSULTING MANAGER failure (HCC) (Primary [address] [place]);[place] [address] [place], [place] Alzheimer's disease [phone] with behavioral [phone] disturbance;Chronic [phone] atrial fibrillation (Fax) (HCC);Essential hypertension;Type 2 diabetes mellitus without complication, with long-term current use of insulin (HCC);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 [facility] Progress Note 01/13/2017 Name: Raffi Sandoval : 1935 Facility: [facility] Type of Visit: 30 day Raffi Sandoval is a 81 y.o. male who had concerns including Monthly Follow Up. HPI/Current Issues: Raffi is seen this today for routine long term follow-up. At this assessment he is resting in bed. He arouses somewhat to verbal and tactile stimulation. He complains of his "lungs being full". He complains of abdominal discomfort and tenderness with palpation. He recently had a diarrhea episode shortly before this assessment. He is not currently on any laxative therapy. Per nursing report, over this past weekend he had episodes where he was kicking at the doors, yelling at the nurses. He was very agitated and an order was received for Ativan topical cream per on-call physician. He also had a fall yesterday where he landed onto his buttocks without further noted injury. Review of his recent blood sugar trends show overall greatly elevated sugars in the 200s and 300s range. Most recent documented fastin, 182, 182, 187, 217 , 124, 152, 179, 188, 187, 214 etc. His diabetes is currently managed with Lantus 20 units twice daily. Patient Active Problem List Diagnosis Mixed hyperlipidemia Essential hypertension [facility] (current) use of anticoagulants Atrial fibrillation ([facility]) Dysthymic disorder Other chronic pain Type 2 diabetes mellitus, uncontrolled ([facility]) Obesity, unspecified Alzheimer's disease Chronic systolic heart failure ([facility]) Coronary artery disease involving coronary bypass graft of [place] heart without angina pectoris Non-ST elevation [place] (NSTEMI) ([facility]) Functional urinary incontinence Late onset Alzheimer's disease with behavioral disturbance Type 2 diabetes mellitus without complication, with long-term current use of insulin ([facility]) Past Medical History: Diagnosis Date Alzheimer's disease 05/05/2015 Chest pain, unspecified Admit Date: [id number]; [facility]; Hussain Hsu MD; [facility] Chronic systolic heart failure ([facility]) 10/27/2015 Essential hypertension Mixed hyperlipidemia [facility] Past Hospitalization Admit on: [id number]; Diagnosis: Gouty arthritis with lt. ankle pain; at: [facility]; Keith Vazquez MD; HOSP Non-ST elevation [place] (NSTEMI) ([facility]) 10/27/2015 Current Outpatient Prescriptions: allopurinol (ZYLOPRIM) 300 MG tablet, Take 1 tablet (300 mg total) by mouth daily., Disp: 30 tablet, Rfl: 5 aspirin EC (ECOTRIN) 81 MG EC tablet, One po daily, Disp: 0, Rfl: 0 Blood Glucose Monitoring Suppl [facility], Glucose Monitor: Use to check blood glucose [...] mouth daily., Disp: 30 tablet, Rfl: 5 furosemide (LASIX) 40 MG tablet, Take 1 [...] LANTUS INJECTIONS, Disp: 180 each, Rfl: 3 Liniments (MEDICATED SKIN CREAM EX), Apply topically every 4 (four) hours as needed. Ativan cream., Disp: , Rfl: lisinopril (PRINIVIL,ZESTRIL) 2.5 MG tablet, TAKE 1 [...] 3 doses), Disp: 25 tablet, Rfl: 1 ONETOUCH DELICA LANCETS 33G MISC, USE UP [...] Date: , Disp: 30 tablet, Rfl: 0 oxycodone-acetaminophen (PERCOCET) 5-325 MG, Take 1-2 tablets by mouth every 4 (four) hours as needed for Moderate Pain. Earliest Fill Date: 12/05/16, Disp: 168 tablet, Rfl: 0 potassium chloride SA (K-DUR,KLOR-CON) [...] mouth daily., Disp: 30 capsule, Rfl: 4 Allergies Allergen Reactions Diazepam arms swell Hydromorphone [...] Narrative Review of Systems: Review of Systems HENT: Negative. Respiratory: Negative. Cardiovascular: Negative. Gastrointestinal: Positive for abdominal pain. Musculoskeletal: Negative. Skin: Negative. Neurological: Negative. Psychiatric/Behavioral: Positive for behavioral problems and confusion. Physical Exam: Last documented vitals: 120/54, 97.5, 89, 17, 95% room air saturation. Current weight is 209.6 pounds, up 2 pounds over the past 3 weeks. Physical Exam Constitutional: He is oriented to person, place, and time. He appears well- developed and well-nourished. HENT: Head: Normocephalic. Mouth/Throat: Oropharynx is clear and moist. Eyes: Conjunctivae and EOM are normal. Pupils are equal, round, and reactive to light. Neck: Normal range of motion. Neck supple. No JVD present. Cardiovascular: Normal rate and normal heart sounds. An irregularly irregular rhythm present. Pulmonary/Chest: Effort normal and breath sounds normal. Abdominal: Soft. Normal appearance. He exhibits no mass. Bowel sounds are increased. There is tenderness (R mid-lower quad). There is no rebound and no guarding. No organomegaly Musculoskeletal: Normal range of motion. Neurological: He is alert and oriented to person, place, and time. Skin: Skin is warm and dry. Psychiatric: He has a normal mood and affect. Labs: Reviewed in chart Code Status: Do Not Resuscitate Assessment and Plan: 1. Chronic systolic heart failure (HCC) Assessment & Plan: Stable. Continue current management. 2. Late onset Alzheimer's disease with behavioral disturbance Assessment & Plan: Continue topical Ativan as ordered. Continue support and reorientation as needed. 3. Chronic atrial fibrillation (HCC) Assessment & Plan: Currently rate controlled. Not on anticoagulation due to high fall risk. Continue same. 4. Essential hypertension Assessment & Plan: Blood pressure is currently controlled. Continue current management with carvedilol, lisinopril. 5. Type 2 diabetes mellitus without complication, with long-term current use of insulin ([facility]) Assessment & Plan: Blood sugars are overall elevated. Increase Lantus insulin to 22 units twice daily. Send blood sugar trends to office after one to weeks. 6. 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 Continue to monitor diarrhea and abdominal tenderness and notify for worsening or change. Follow-up: Follow up PRN and per facility protocol. Elizabeth Manjarrez APRN Electronic Signature 01/13/2017 3:19 PM in this encounter Plan of Treatment Not on fileas of this encounter Goals Patient Goal Type Goal Recent Progress Patient-Stated? Author Weight Weight (lb) < 99.3 kg (219 lb) Maria E Hussain Hsu K, 200 (10/15/2016 11:21 MD RUIZ CDT) as of this encounter Visit Diagnoses Diagnosis Chronic systolic heart failure (HCC) - Primary Chronic systolic heart failure Late onset Alzheimer's disease with behavioral disturbance Chronic atrial fibrillation (HCC) Atrial fibrillation Essential hypertension Unspecified essential hypertension Type 2 diabetes mellitus without complication, with long-term current use of insulin (HCC) Uncontrolled type 2 diabetes mellitus with diabetic polyneuropathy, with long- term current use of insulin (HCC) in this encounter
--- OUTSIDE RECORDS SUMMARY | 2017-01-28 14:07 | External Medical Summary | Encounter Summary ---
:1935 Author Organization [facility] Address [address] [address] Phone Care Team Providers Name Role Phone Unavailable Primary Care Provider Unavailable Reason for Visit Reason Comments Calling For Orders increased agitation Encounter Details Date Type Department Care Team Description 01/13/2017 Telephone Mendez Guerrero Internal Madison Manjarrez, Calling For Orders Medicine - [place] DARREL (increased agitation) [address] [place] [address] [place] [id number] Social History Tobacco Use Types Packs/Day Years [...]
--- OUTSIDE RECORDS SUMMARY | 2017-01-28 14:07 | External Medical Summary | Encounter Summary ---
:1935 Author Organization [facility] Address [address] [address] Phone Care Team Providers Name Role Phone Unavailable Primary Care Provider Unavailable Reason for Visit Reason Comments Acute Visit ER follow-up Encounter Details Date Type Department Care Team Description 12/30/2016 [facility] Cotton O`Jose Juan Internal Madison Manjarrez Acute cystitis without Medicine - [place] Elizabeth, BAIT TIER hematuria (Primary [address]);[place] [address] [place] hemiparesis [phone] (HCC);Chronic systolic [phone] heart failure [phone] (HCC);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 [facility] Progress Note 12/30/2016 Name: Raffi Sandoval : 1935 Facility: [facility] Type of Visit: Acute Visit Raffi Sandoval is a 81 y.o. male who had concerns including Acute Visit. HPI/Current Issues: Raffi is seen this day for emergency department follow-up. On December 22, he was noted to have increased facial droop and he has history of recent CVA. He was taken to the emergency department for evaluation. He was diagnosed with acute urinary tract infection. Blood work showed essentially normal CBC, CMP with creatinine 1.23, BUN 26, GFR 56. Otherwise normal liver function and electrolytes. He wasgiven IV Rocephin and started on Keflex for outpatient. He also had CT scan which showed no evidenceof acute intracranial abnormality but with age related changes in the brain. Review of recent blood pressure trends show well-controlled pressures ranging from 100s over 50s/ 60s up to 120s over 70s. Blood sugar trends show average range 130s to 160s. He does have a few 200s readings in the afternoons. Fasting blood sugars recently 103, 163, 367, 71, 121, 132, 129. He is currently managed with Lantus insulin 20 units twice daily. Currently denies any complications. Denies shortness of breath, palpitations, chest pain or dizziness. There are no concerns expressed by facility nursing staff. Patient Active Problem List Diagnosis Mixed hyperlipidemia Essential hypertension snf (current) use of anticoagulants Atrial fibrillation (HCC) Dysthymic disorder Other chronic pain Type 2 diabetes mellitus, uncontrolled ([facility]) Obesity, unspecified Alzheimer's disease Chronic systolic heart failure (HCC) Coronary artery disease involving coronary bypass graft of [place] heart without angina pectoris Non-ST elevation [place] (NSTEMI) ([facility]) Functional urinary incontinence Past Medical History: Diagnosis Date Alzheimer's disease 05/05/2015 Chest pain, unspecified Admit Date: [id number]; [facility]; Hussain Hsu MD; HOSP Chronic systolic heart failure ([facility]) 10/27/2015 Essential hypertension Mixed hyperlipidemia [facility] Past Hospitalization Admit on: [id number]; Diagnosis: Gouty arthritis with lt. ankle pain; at: [facility]; Keith Vazquez MD; HOSP Non-ST elevation [place] (NSTEMI) ([facility]) 10/27/2015 Current Outpatient Prescriptions: allopurinol (ZYLOPRIM) 300 MG tablet, Take 1 tablet (300 mg total) by mouth daily., Disp: 30 tablet, Rfl: 5 aspirin EC (ECOTRIN) 81 MG EC tablet, One po daily, Disp: 0, Rfl: 0 Blood Glucose Monitoring Suppl [facility], Glucose Monitor: Use to check blood glucose [...] insulin glargine (LANTUS) 100 UNIT/ML injection, Inject 0.2 mLs (20 Units total) into the skin 2 (two) times daily., Disp: 90 mL, Rfl: [...] at bedtime. May also take once daily PRN, Disp: 30 tablet, Rfl: 0 oxycodone-acetaminophen (PERCOCET) 5-325 MG, Take 1-2 tablets by mouth every 4 (four) hours as needed for Moderate Pain. Earliest Fill Date: 12/05/16, Disp: 168 tablet, Rfl: 0 potassium chloride SA (K-DUR,KLOR-CON) 20 MEQ tablet, Take 20 mEq by mouth daily., Disp: , Rfl: tamsulosin (FLOMAX) 0.4 [...] HENT: Negative. Respiratory: Negative. Cardiovascular: Negative. Gastrointestinal: Negative. Musculoskeletal: Negative. Skin: Negative. Neurological: Negative. Physical Exam: Last documented vitals: 122/71, 97.7, 96, 20, 95% room air saturation. Current weight is 203.4 pounds, down from 209.6. Physical Exam Constitutional: He is oriented to [...] breath sounds normal. Abdominal: Soft. Normal appearance. Musculoskeletal: Normal range of motion. Neurological: He is alert and oriented to person, place, and time. Skin: Skin is warm and dry. Psychiatric: He has a normal mood and affect. Labs: Reviewed in chart Code Status: Do Not Resuscitate Assessment and Plan: 1. Acute cystitis without hematuria Continues on antibiotic. *Recheck UA CI once completed with antibiotic therapy. 2. Acute right hemiparesis (HCC) 3. Chronic systolic heart failure (HCC) Stable at this time. Continue current management with carvedilol, furosemide, lisinopril. 4. Late onset Alzheimer's disease with behavioral disturbance 5. Essential hypertension Well controlled. Continue current management. 6. Type 2 diabetes mellitus without complication, with long-term current use of insulin (HCC) Will continue to monitor blood sugars as ordered. Notify office of abnormal trends. Follow-up: Follow up PRN and per facility protocol. Elizabeth Manjarrez APRN Electronic Signature 12/30/2016 3:05 PM in this encounter Plan of Treatment Not on fileas of this encounter Goals Patient Goal Type Goal Recent Progress Patient-Stated? Author Weight Weight (lb) < 99.3 kg (219 lb) Hussain Coulter K, 200 (10/15/2016 11:21 MD RUIZ CDT) as of this encounter Visit Diagnoses Diagnosis Acute cystitis without hematuria - Primary Acute cystitis Acute right hemiparesis (HCC) Hemiplegia, unspecified, affecting unspecified side Chronic systolic heart failure (HCC) Chronic systolic heart failure Late onset Alzheimer's disease with behavioral disturbance Essential hypertension Unspecified essential hypertension Type 2 diabetes mellitus without complication, with long-term current use of insulin (HCC) in this encounter
--- OUTSIDE RECORDS SUMMARY | 2017-01-28 14:08 | External Medical Summary | Encounter Summary ---
:1935 Author Organization [facility] Address [address] [address] Phone Care Team Providers Name Role Phone Unavailable Primary Care Provider Unavailable Reason for Visit Reason Comments Calling For Orders medication review Encounter Details Date Type Department Care Team Description 12/24/2016 Telephone Mendez Guerrero Internal Madison Manjarrez, Calling For Orders Medicine - [place] (medication review) [address] [place] [address] [place] [phone] Social History Tobacco Use Types Packs/Day Years [...]
--- OUTSIDE RECORDS SUMMARY | 2017-01-28 14:08 | External Medical Summary | Encounter Summary ---
:1935 Author Organization [facility] Address [address] [address] Phone Care Team Providers Name Role Phone Unavailable Primary Care Provider Unavailable Encounter Details Date Type Department Care Team Description 12/26/2016 Orders Only MULTIPLE TESTS Link, [place], [place] Social History Tobacco Use Types Packs/Day Years Used Date Former Smoker Smokeless Tobacco: Never Used Comments: Quit smoking: Year stopped 1997/Number of yrs: 35.00/Packs per day: 2.00/Pac* Alcohol Use Drinks/Week oz/Week Comments No Alcoholic Drinks/day: Never Sex Assigned at Date Recorded Not on file as of this encounter Plan of Treatment Pending Results Name Priority Associated Diagnoses Date/Time EXTERNAL LAB TEST 12/22/2016 12:00 AM CDT as of this encounter Goals Patient Goal Type Goal Recent Progress Patient-Stated? Author Weight Weight (lb) < 99.3 kg (219 lb) Hussain Coulter, 200 (10/15/2016 11:21 MD AM CDT) as of this encounter Visit Diagnoses Not on filein this encounter
--- OUTSIDE RECORDS SUMMARY | 2017-01-28 14:08 | External Medical Summary | Encounter Summary ---
:1935 Author Organization [facility] Address [address] [address] Phone Care Team Providers Name Role Phone Unavailable Primary Care Provider Unavailable Reason for Visit Reason Comments Calling For Orders requesting lab Encounter Details Date Type Department Care Team Description 12/24/2016 Telephone Mendez Guerrero Internal Madison Manjarrez, Calling For Orders Medicine - [place] ROJO (requesting lab) [address] [place] [address] [place] [address] [place] [phone] Social History Tobacco Use Types Packs/Day Years [...]
--- OUTSIDE RECORDS SUMMARY | 2017-01-28 14:08 | External Medical Summary | Encounter Summary ---
:1935 Author Organization [facility] Address [address] [address] Phone Care Team Providers Name Role Phone Unavailable Primary Care Provider Unavailable Encounter Details Date Type Department Care Team Description 12/23/2016 [facility] Scan MULTIPLE TESTS Link, [facility], [place] Social History Tobacco Use Types Packs/Day [...]
--- OUTSIDE RECORDS SUMMARY | 2017-01-28 14:09 | External Medical Summary | Encounter Summary ---
:1935 Author Organization [facility] Address [address] [address] Phone Care Team Providers Name Role Phone Unavailable Primary Care Provider Unavailable Reason for Visit Reason Comments Calling For Orders witnessed floor Encounter Details Date Type Department Care Team Description 12/23/2016 Telephone Mendez Guerrero Internal Madison Manjarrez, Calling For Orders Medicine - [place] ROJO (witnessed floor) [address] [place] [address] [place] [address] [place] [phone] Social History Tobacco Use Types Packs/Day Years [...]
--- OUTSIDE RECORDS SUMMARY | 2017-01-28 14:09 | External Medical Summary | Encounter Summary ---
:1935 Author Organization [facility] Address [address] [place] [address] Phone Care Team Providers Name Role Phone Unavailable Primary Care Provider Unavailable Reason for Referral Imaging Prior Auth (Routine) Status Reason Specialty Diagnoses / Referred By Referred To Procedures Contact Contact Authorized Specialty Radiology Procedures Hussain Hsu, [facility] Required MRI Brain MD Radiology (without [address] contrast) [address] [place] [id number] Reason for Visit Reason Comments Calling With Results Encounter Details Date Type Department Care Team Description 12/20/2016 Telephone Mendez O`Jose Juan Internal Hussain Hsu MD Calling With Results Medicine - [place] [address] [place] [address] [place], [place] [phone] Social History Tobacco Use Types Packs/Day [...] MD RUIZ CDT) as of this encounter Results MRI Brain (without contrast) (12/20/2016) Impressions See scanned document and phone note dated 12-20-16 in this encounter Visit Diagnoses Not on filein this encounter
--- OUTSIDE RECORDS SUMMARY | 2017-01-28 14:10 | External Medical Summary | Encounter Summary ---
:1935 Author Organization [facility] Address [address] [address] Phone Care Team Providers Name Role Phone Unavailable Primary Care Provider Unavailable Reason for Visit Reason Comments Calling For Orders medication management Encounter Details Date Type Department Care Team Description 12/19/2016 Telephone Mendez Guerrero Internal Madison Manjarrez, Calling For Orders Medicine - [place] DARREL (medication management) [address] [place] [address] [place] [phone] Social History Tobacco Use Types Packs/Day Years [...]
--- OUTSIDE RECORDS SUMMARY | 2017-01-28 14:10 | External Medical Summary | Encounter Summary ---
:1935 Author Organization [facility] Address [address] [place] [address] Phone Care Team Providers Name Role Phone Unavailable Primary Care Provider Unavailable Encounter Details Date Type Department Care Team Description 12/17/2016 Orders Only Cotton O`Jose Juan Internal Hussain Hsu, Acute right hemiparesis Medicine - [place] DO ([facility]) (Primary Dx) [address] [place] [address] [place] [address] [address] [place] [phone] Social History Tobacco Use Types Packs/Day Years [...] of this encounter Visit Diagnoses Diagnosis Acute right hemiparesis (HCC) - Primary Hemiplegia, unspecified, affecting unspecified side in this encounter
--- OUTSIDE RECORDS SUMMARY | 2017-01-28 14:10 | External Medical Summary | Encounter Summary ---
:1935 Author Organization [facility] Address [address] [address] Phone Care Team Providers Name Role Phone Unavailable Primary Care Provider Unavailable Reason for Visit Reason Comments Medication Refill Encounter Details Date Type Department Care Team Description 12/20/2016 Refill Cotton O`Jose Juan Internal Madison Manjarrez, Medication Refill Medicine - [place] SENIOR PROJECT ARCHITECT [address] [place] [address] [place], [place] [phone] Social History Tobacco Use Types Packs/Day Years [...]
--- OUTSIDE RECORDS SUMMARY | 2017-01-28 14:12 | External Medical Summary | Encounter Summary ---
:1935 Author Organization [facility] Address [address] [address] Phone Care Team Providers Name Role Phone Unavailable Primary Care Provider Unavailable Reason for Visit Reason Comments Results lab results reviewed Encounter Details Date Type Department Care Team Description 12/16/2016 Telephone Mendez Guerrero Internal Madison Manjarrez, Results (lab results Medicine - [place] BEN DAY ARTIST reviewed) [address] [place] [address] [place], [place] [phone] Social History Tobacco Use Types Packs/Day Years [...]
--- OUTSIDE RECORDS SUMMARY | 2017-01-28 14:12 | External Medical Summary | Encounter Summary ---
:1935 Author Organization [facility] Address [address] [address] Phone Care Team Providers Name Role Phone Unavailable Primary Care Provider Unavailable Reason for Visit Reason Comments Other mcc face to face Other hospital follow up. Encounter Details Date Type Department Care Team Description 12/16/2016 Office Visit Mendez Guerrero Internal Hussain Hsu, Acute right hemiparesis Medicine - [place] DO ([facility]) (Primary [address]);Ch[place] [address] [address] heart failure [phone] JAY JAY Low ([facility]);Late onset [id number] Alzheimer's disease [phone] with behavioral [phone] disturbance;Essential (Fax) hypertension;Chronic atrial fibrillation (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);Coronary artery disease involving coronary bypass graft of jena heart without angina pectoris Social History Tobacco Use Types Packs/Day Years Used Date Former Smoker Smokeless Tobacco: Never Used Comments: Quit smoking: Year stopped 1997/Number of yrs: 35.00/Packs per day: 2.00/Pac* Alcohol Use Drinks/Week oz/Week Comments No Alcoholic Drinks/day: Never Sex Assigned at Date Recorded Not on file as of this encounter Last Filed Vital Signs Vital Sign Reading Time Taken Blood Pressure 124/78 12/16/2016 9:56 AM CDT Pulse 70 12/16/2016 9:56 AM CDT Temperature - - Respiratory Rate - - Oxygen Saturation - - Inhaled Oxygen Concentration - - Weight - - Height 162.6 cm (5' 4.02") 12/16/2016 9:56 AM CDT Body Mass Index - - in this encounter Progress Notes Hussain Hsu MD - 12/16/2016 10:00 AM CDTFormatting of this note may be different from the original. 12/16/2016 CHIEF COMPLAINT Chief Complaint Patient presents with Other mcc face to face Other hospital follow up. SUBJECTIVE Raffi Sandoval is a 81 y.o. male who presents For his first month skilled visit. He is staying at [facility] for skilled visit after a couple nights stay at [facility] in [place], [place]. He was very unhappy with his stay at the hospital. His family doesn't sound to place either. He went in because of sudden onset of inability to help with transfers. He prior to going to the hospitalhe was able to walk a few steps across the room with assistance to move from the chair to the bed, etc. On arrival at the emergency room he had a CT of the brain without contrast that showed no bleed. He had no further imaging done. He was obviously debilitated and unable to help with his cares at all, so the hospital advised him to go to a skilled facility. He chose to come to [place] since I'm his primary care physician. He worked well with therapies last week. His daughter and grandson are both concerned that he still unable to help with mobility. He still is unable to move the right leg and right arm. The patient is a very depressed and said he feels like his life is just ending. The patient was on hospice for several months but was not showing any decline, so he and his family chose to be dismissed from hospice. He denies shortness of breath, chest pain, heaviness. There is no increased lower extremity edema. Appetite has been poor. ROS Constitutional: No headaches, fevers, chills, sweats, or weight change, though I don't have any weights on him. We were unable to weigh him at the clinic. Cardiac: No chest pains, palpitations, orthopnea, or PND Respiratory: No shortness of breath, cough, or sputum production GI: No heartburn, nausea, vomiting, constipation, diarrhea, blood in stools, or black stools : No dysuria, hematuria, increased frequency of urination Neurologic: No vision change, headache, difficulty speaking or swallowing Musculoskeletal: No new arthralgias or myalgias Skin: No new rashes MEDICATIONS Current Outpatient Prescriptions Medication Sig Dispense Refill allopurinol (ZYLOPRIM) 300 MG tablet Take 1 tablet (300 mg total) by mouth daily. 30 tablet 5 aspirin EC (ECOTRIN) 81 MG EC tablet One po daily 0 0 Blood Glucose Monitoring Suppl [facility] Glucose Monitor: Use to check blood glucose three times daily, Dx: E11.65 1 each 0 carvedilol (COREG) 6.25 MG tablet Take 1 tablet (6.25 mg total) by mouth 2 ( two) times daily. with meals 60 tablet 5 clopidogrel (PLAVIX) 75 MG tablet Take 1 tablet (75 mg total) by mouth daily. 30 tablet 5 furosemide (LASIX) 40 MG tablet Take 1 tablet (40 mg total) by mouth daily. 30 tablet 5 insulin glargine (LANTUS) 100 UNIT/ML injection Inject 0.2 mLs (20 Units total) into the skin 2 (two) times daily. 90 mL 2 Insulin Syringe-Needle U-100 (B-D INS SYR ULTRAFINE 1CC/30G) 30G X 1/2" 1 ML [facility] USE TWO TIMES DAILY FOR LANTUS INJECTIONS 180 each 3 lisinopril (PRINIVIL,ZESTRIL) 2.5 MG tablet TAKE 1 TABLET BY MOUTH ONCE DAILY. 30 tablet 5 lovastatin (MEVACOR) 20 MG tablet TAKE ONE TABLET BY MOUTH EVERY NIGHT AT BEDTIME 30 tablet 5 NEXIUM 40 MG capsule TAKE ONE CAPSULE BY MOUTH DAILY 30 capsule 5 nitroglycerin (NITROSTAT) 0.4 MG SL tablet One under your tongue every 5 minutes for chest pain (max 3 doses) 25 tablet 1 ONETOUCH DELICA LANCETS 33G [facility] USE UP TO THREE TIMES A DAY (DX: E11.65) 100 each 3 ONETOUCH ULTRA BLUE test strip USE TO TEST UP TO THREE TIMES A DAY (DX: E11.65) 100 strip 4 potassium chloride SA (K-DUR,KLOR-CON) 20 MEQ tablet Take 20 mEq by mouth daily. tamsulosin (FLOMAX) 0.4 MG CAPS Take 1 capsule (0.4 mg total) by mouth daily. 30 capsule 5 venlafaxine (EFFEXOR-XR) 150 MG 24 hr capsule Take 1 capsule (150 mg total) by mouth daily. 30 capsule 4 clonazePAM (KLONOPIN) 1 MG tablet TAKE ONE TABLET BY MOUTH NIGHTLY (Patient not taking: Reportedon 12/16/2016) 28 tablet 0 oxycodone-acetaminophen (PERCOCET) 5-325 MG Take 1-2 tablets by mouth every 4 (four) hours as needed for Moderate Pain. Earliest Fill Date: 12/05/16 ( Patient not taking: Reported on 12/16/2016) 168 tablet 0 No current facility-administered medications for this visit. ALLERGIES Allergies Allergen Reactions Diazepam arms swell Hydromorphone severe drowsiness (Too loopy) Indomethacin Unknown Pneumococcal Vaccine Swelling Health maintenance including immunizations are reviewed. Social and family history are reviewed and updated. PHYSICAL EXAM Vital Signs: Visit Vitals BP 124/78 (BP Location: Left arm, Patient Position: Sitting, Cuff Size: Regular Adult) Pulse 70 Ht 5' 4.02" (1.626 m) Constitutional: Well developed, well nourished, in no apparent distress Head and neck: Pupils are equally round and reactive to light. Oropharynx is clear. Tympanic membranes are clear without external auditory canal lesions. Neck is supple without lymphadenopathy, JVD, thyromegaly, or bruits. Lungs: Clear to auscultation bilaterally without rhonchi or rales. Heart: Irregularly irregular without murmur, S3, Abdomen: Soft, nontender, nondistended, normoactive bowel sounds, no organomegaly. Vascular: No carotid bruits, peripheral pulses intact Extremities: No cyanosis, clubbing or edema Neurologic: Cranial nerves II through XII are intact. Actually has a little bit of right facial droop compared to usual. 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 He was unable to March or flex the hips of either leg. The with knee extension he's a little weaker on the right than the left. RESULTS No visits with results within 1 Day(s) from this visit. Latest known visit with results is: Lab Visit on 08/12/2016 Component Date Value Ref Range Status Hemoglobin A1C 08/12/2016 8.7* <5.7 % Final TSH 08/12/2016 3.411 0.400 - 4.000 uIU/mL Final Albumin 08/12/2016 3.4* 3.5 - 5.0 g/dL Final Alkaline Phosphatase 08/12/2016 122* 46 - 116 U/L Final ALT 08/12/2016 27 21 - 72 U/L Final AST 08/12/2016 16* 17 - 59 U/L Final Total Bilirubin 08/12/2016 0.6 0.2 - 1.3 mg/dL Final BUN, Bld 08/12/2016 21* 9 - 20 mg/dL Final Calcium 08/12/2016 8.9 8.4 - 10.2 mg/dL Final Chloride 08/12/2016 98* 99 - 108 mmol/L Final Creatinine 08/12/2016 1.12 0.80 - 1.50 mg/dL Final Glucose 08/12/2016 236* 64 - 110 mg/dL Final Potassium 08/12/2016 4.9 3.6 - 5.0 mmol/L Final Total Protein 08/12/2016 7.5 6.0 - 8.0 g/dL Final Sodium 08/12/2016 136 135 - 145 mmol/L Final CO2 08/12/2016 33* 22 - 30 mmol/L Final Anion Gap 08/12/2016 5 Final eGFR 08/12/2016 >59 >59 mL/min Final Cholesterol 08/12/2016 117 <=200 mg/dL Final Triglycerides 08/12/2016 197* 0 - 149 mg/dL Final HDL 08/12/2016 29* 40 - 90 mg/dL Final LDL Cholesterol 08/12/2016 49 mg/dL Final Chol/HDL Ratio 08/12/2016 4.0 <=5.1 Final WBC 08/12/2016 8.1 3.5 - 10.5 10E9/L Final RBC 08/12/2016 4.88 4.32 - 5.72 10E12/L Final Hemoglobin 08/12/2016 14.1 13.5 - 17.5 g/dL Final Hematocrit 08/12/2016 43.3 38.8 - 50.0 % Final MCV 08/12/2016 88.8 81.2 - 95.1 fL Final MCH 08/12/2016 28.9 26.0 - 34.0 pg Final MCHC 08/12/2016 32.5 31.0 - 37.0 g/dL Final RDW 08/12/2016 16.5* 11.8 - 15.6 % Final Platelets 08/12/2016 213 150 - 450 10E9/L Final Neutrophils % 08/12/2016 67.9 40.0 - 75.0 % Final Lymphocytes % 08/12/2016 22.0 22.0 - 49.0 % Final Monocytes % 08/12/2016 5.0 2.0 - 9.0 % Final Eosinophils % 08/12/2016 3.6 <=5.0 % Final Basophils % 08/12/2016 1.5 0.0 - 2.5 % Final Neutrophils Absolute 08/12/2016 5.50 1.70 - 7.00 10E9/L Final Lymphocytes Absolute 08/12/2016 1.80 0.90 - 2.90 10E9/L Final Monocytes Absolute 08/12/2016 0.40 0.30 - 0.90 10E9/L Final Absolute Eosinophils 08/12/2016 0.30 0.05 - 0.50 10E9/L Final Basophils Absolute 08/12/2016 0.10 0.00 - 0.30 10E9/L Final ASSESSMENT AND PLAN Patient Active Problem List Diagnosis Mixed hyperlipidemia Essential hypertension intermediate (current) use of anticoagulants Atrial fibrillation (HCC) Dysthymic disorder Other chronic pain Type 2 diabetes mellitus, uncontrolled ([facility]) Obesity, unspecified Alzheimer's disease Chronic systolic heart failure (HCC) Coronary artery disease involving coronary bypass graft of jena heart without angina pectoris Non-ST elevation IA (NSTEMI) ([facility]) Functional urinary incontinence 1. Acute right hemiparesis ([facility]) MRI of the brain will be ordered to rule out stroke. 2. Chronic systolic heart failure ([facility]) Continue same medications. 3. Late onset Alzheimer's disease with behavioral disturbance Obviously this complicates his other medical issues 4. Essential hypertension Adequate control 5. Chronic atrial fibrillation ([facility]) Continue rate control. Because of his multiple falls he has not been anticoagulated. His of course puts him at increased risk of stroke, making an MRI even more. 6. Dysthymic disorder Continue supportive care and environment. 7. Uncontrolled type 2 diabetes mellitus with diabetic polyneuropathy, with long -term current use ofinsulin ([facility]) Continue same treatment 8. Coronary artery disease involving coronary bypass graft of jena heart without angina pectoris No active symptoms 1. Patient expressed understanding and agreement with plan. Electronically signed by: Hussain Hsu MD, 12/16/2016 8:58 PM Senait Ramírez MA - 12/16/2016 10:00 AM CDTPatient here for a hospital follow up and a face to face for going to a mcc. PT's MAR doesnot have his pain medication listed and pt reports he has not been getting it. Pt also reports that his has trouble with his right hand, will not close. Pt also would like to go home.in this encounter Plan of Treatment Not on fileas of this encounter Goals Patient Goal Type Goal Recent Progress Patient-Stated? Author Weight Weight (lb) < 99.3 kg (219 lb) No Hussain Hsu K, 200 (10/15/2016 11:21 MD RUIZ CDT) as of this encounter Visit Diagnoses Diagnosis Acute right hemiparesis (HCC) - Primary Hemiplegia, unspecified, affecting unspecified side Chronic systolic heart failure (HCC) Chronic systolic heart failure Late onset Alzheimer's disease with behavioral disturbance Essential hypertension Unspecified essential hypertension Chronic atrial fibrillation (HCC) Atrial fibrillation Dysthymic disorder Uncontrolled type 2 diabetes mellitus with diabetic polyneuropathy, with long- term current use of insulin (HCC) Coronary artery disease involving coronary bypass graft of jena heart without angina pectoris in this encounter
--- OUTSIDE RECORDS SUMMARY | 2017-01-28 14:13 | External Medical Summary | Encounter Summary ---
:1935 Author Organization [facility] Address [address] [address] Phone Care Team Providers Name Role Phone Unavailable Primary Care Provider Unavailable Reason for Visit Reason Comments Calling For Orders Encounter Details Date Type Department Care Team Description 12/13/2016 Telephone Madison Samuel, Calling For Orders Medicine - [place] [employer] COUNSEL[employer] [address] [place] [address] [place], [place] [id number] Social History Tobacco Use Types Packs/Day Years [...]
--- OUTSIDE RECORDS SUMMARY | 2017-01-28 14:14 | External Medical Summary | Encounter Summary ---
:1935 Author Organization [facility] Address [address] [address] Phone Care Team Providers Name Role Phone Unavailable Primary Care Provider Unavailable Encounter Details Date Type Department Care Team Description 12/12/2016 [facility] MULTIPLE TESTS Link, [facility] [place], [place] Social History Tobacco Use Types Packs/Day Years Used Date Former Smoker Smokeless Tobacco: Never Used Comments: Quit smoking: Year stopped 1997/Number of yrs: 35.00/Packs per day: 2.00/Pac* Alcohol Use Drinks/Week oz/Week Comments No Alcoholic Drinks/day: Never Sex Assigned at Date Recorded Not on file as of this encounter Plan of Treatment Pending Results Name Priority Associated Diagnoses Date/Time EXTERNAL LAB TEST 12/13/2016 12:00 AM CDT as of this encounter Goals Patient Goal Type Goal Recent Progress Patient-Stated? Author Weight Weight (lb) < 99.3 kg (219 lb) No Hussain Hsu K, 200 (10/15/2016 11:21 MD AM CDT) as of this encounter Visit Diagnoses Not on filein this encounter
--- OUTSIDE RECORDS SUMMARY | 2017-01-28 14:15 | External Medical Summary | Encounter Summary ---
:1935 Author Organization [facility] Address [address] [address] Phone Care Team Providers Name Role Phone Unavailable Primary Care Provider Unavailable Encounter Details Date Type Department Care Team Description 12/12/2016 Abstract Mendez Guerrero Internal Hussain Hsu MD Medicine - [place] [address] [place] [address] [place] [address] Social History Tobacco Use Types Packs/Day Years Used Date Former Smoker Smokeless Tobacco: Never Used Comments: Quit smoking: Year stopped 1997/Number of yrs: 35.00/Packs per day: 2.00/Pac* Alcohol Use Drinks/Week oz/Week Comments No Alcoholic Drinks/day: Never Sex Assigned at Date Recorded Not on file as of this encounter Progress Notes Senait Ramírez, RON - 12/12/2016 8:42 AM CDTPatient admitted to jail. Updated medication list per jail MAR.in this encounter Plan of Treatment Not on fileas of this encounter Goals Patient Goal Type Goal Recent Progress Patient-Stated? Author Weight Weight (lb) < 99.3 kg (219 lb) No Hussain Hsu, 200 (10/15/2016 11:21 MD AM CDT) as of this encounter Visit Diagnoses Not on filein this encounter
--- OUTSIDE RECORDS SUMMARY | 2017-01-28 14:16 | External Medical Summary | Encounter Summary ---
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
--- OUTSIDE RECORDS SUMMARY | 2017-01-28 14:16 | External Medical Summary | Encounter Summary ---
:1935 Author Organization [facility] Address [address] [address] Phone Care Team Providers Name Role Phone Unavailable Primary Care Provider Unavailable Reason for Visit Reason Comments Medication Refill Encounter Details Date Type Department Care Team Description 12/05/2016 Refill Cotton O`Jose Juan Internal Hussain Hsu MD Medication Refill Medicine - [place] [address] [place] [address] [place], [place] [phone] Social History Tobacco Use Types Packs/Day [...] of this encounter Visit Diagnoses Diagnosis Chronic pain syndrome in this encounter
--- OUTSIDE RECORDS SUMMARY | 2017-01-28 14:17 | External Medical Summary | Continuity of Care Document ---
:1935 Author Care Team Providers Name Role Phone Hussain Lu MD Primary Care Physician Unavailable Insurance Providers Payer Name Policy Number Subscriber Name Relationship MCR SKILL [id number] NIESHA DAHL PATIENT/SELF MEDICAID [facility] [id number] NIESHA DAHL PATIENT/SELF Advance Directives Directive Response Recorded Date/Time Advance Directive Information: INSTRUCTED TO BRING AD 10/05/15 12:57pm Chief Complaint and Reason for Visit Reason for Visit SKILLED Problems Active Medical Problems Problem Onset Date Recorded Date Status Altered mental status Unknown 04/30/15 Active STEMI (ST elevation myocardial infarction) Unknown 09/30/15 Active Generalized weakness Unknown 09/30/15 Active Dementia Unknown 09/30/15 Active Other and unspecified hyperlipidemia Unknown 10/02/15 Active Unspecified essential hypertension Unknown 10/02/15 Active intermediate frame tender (current) use of anticoagulants Unknown 10/02/15 Active Atrial fibrillation Unknown 10/02/15 Active Dysthymic disorder Unknown 10/02/15 Active Other chronic pain Unknown 10/02/15 Active Type 2 diabetes mellitus, uncontrolled Unknown 10/02/15 Active Obesity, unspecified Unknown 10/02/15 Active Alzheimers disease Unknown 10/02/15 Active Medications Current Home Medications Medication Dose Units Route Directions Days/Qty Instructions Start Date Allopurinol 300 MG BY MOUTH DAILY 30 (Zyloprim) 300 MG TABLET Aspirin (Adult 81 MG BY MOUTH DAILY Low Dose Aspirin EC) 81 MG TABLET Atenolol 50 MG BY MOUTH DAILY 30 10/10/15 (Atenolol 50 MG Tab) 50 MG UD.TAB Clonazepam 1 MG BY MOUTH BEDTIME 60 (Klonopin) 1 MG TABLET Clopidogrel* 75 MG BY MOUTH DAILY For 30 10/10/15 (Plavix*) 75 MG stents TABLET Esomeprazole 40 MG BY MOUTH DAILY Magnesium (Nexium) 40 MG CAPSULE.DR Furosemide 40 MG 40 MG BY MOUTH DAILY 30 10/10/15 TABLET Insulin Glargine 70 UNITS SUBCUTANEO TWICE DAILY 30 10/10/15 100 Units/Ml (Lantus) 100 UNIT/1 ML INJ Lisinopril 2.5 MG BY MOUTH DAILY For 30 10/10/15 (Prinivil) 5 MG coronary TABLET disease Lovastatin 20 MG BY MOUTH BEDTIME (Mevacor) 20 MG TABLET Nitroglycerin Sl 0.4 MG SUBLINGUAL [address] 1 TABLET (Nitrostat) 0.4 5 MIN X 3 PRN BY SUBLINGUAL MG TAB.SUBL CHEST PAIN ROUTE AT THE 1ST SIGN OF ATTACK; MAYREPEAT EVERY 5 MINUTES UNTIL PAIN RELIEF; IF PAIN PERSISTS AFTER 3TABLETS IN 15 MINUTES, PROMPT MEDICAL ATTENTION IS RECOMMENDED Oxycodone 5 MG 1-2 TAB BY MOUTH EVERY 4 HOURS W/Actm 325 MG NEEDED PRN (Percocet 5/325) PAIN 1 EA UD.TAB Potassium 20 MEQ BY MOUTH DAILY 60 10/10/15 Chloride (Klor-Con M10) 10 MEQ TAB.ER.PRT Tamsulosin 0.4 MG BY MOUTH DAILY (Flomax SR) 0.4 MG UD.CAP Venlafaxine HCl 150 MG BY MOUTH DAILY 30 (Effexor XR) 150 MG CAP.ER.24H Past Home Medications Medication Directions Ordered Status Medication Reconciliation (Medication ONE TIME ONLY Unknown Discontinued Reconciliation) 1 Each Ea Ea, 1 Each By Mouth Furosemide (Lasix) 80 Mg Tablet Tablet, 80 Mg By DAILY Unknown Discontinued Mouth Glimepiride (Amaryl) 4 Mg Tablet Tablet, 4 Mg By DAILY Unknown Discontinued Mouth Insulin Aspart, Human Analog (Novolog Flexpen 1800 Unknown Discontinued Prefilled Syringe) 100 Units/Ml Inj Inj, 20 UnitsSubcutaneo Insulin Glargine 100 Units/Ml (Lantus) 100 Unit/1 TWICE DAILY Unknown Discontinued Ml Inj Inj, 85 Units Subcutaneo Metoprolol Tartrate (Lopressor 50MG Tab) 50 Mg TWICE DAILY Unknown Discontinued Ud.tab Ud.tab, 25 Mg By Mouth Nitroglycerin (Nitro-Dur) 0.3 Mg/Hr Patch.td24 DAILY Unknown Discontinued Patch.td24, 1 Patch Topically Nystatin (Nystatin Cream 30GM) 10 Applic/Gm Cr Cr, TWICE DAILY Unknown Discontinued 1 Applic Topically Social History No social history. Hospital Discharge Instructions ======DISCHARGE WITH THE FOLLOWING INSTRUCTIONS====== Reason for Hospitalization: WEAKNESS Physician: DR LU Discharge Diet: DIABETIC DIET Discharge Activity: TOLERATED Return Appointment: KEEP FOLLOW UP APPOINTMENT WITH DR LU AT 3: 30PM Return Appointment: COME TO CLINIC FOR LAB(CBC, CMP) PRIOR TO APPOINTMENT Return Appointment: FOLLOW UP WITH DR ROD(CARDIOLOGY) NOV 20 AT 2:00PM Vaccinations Given: None Given If you need assistance in contacting your physician or his/ her designee call [facility] switchboard at [phone]. At [facility] we strive to provide excellent care to all patients, every visit. We appreciate any feedback from those we serve to make sure that we are meeting our goal. After dismissal, you may receive a phone call from [employer] to ask about your overall experience. We would greatly appreciate it if you would take the time to participate in the survey so that we may know how we are doing. If you do not receive a phone call and would like to share your experience, feel free to contact us. (Teach back method utilized to ensure patient understanding of instructions.) (Patient has received & understands dismissal instructions.) Plan of Care Discharge Date 10/11/15 Disposition HOME/SELF CARE Instructions/Education Provided Heart Attack Forms Provided DISCHARGE INSTRUCTIONS Prescriptions See Medications Section Care Plan and Goals See Discharge Instructions section Functional Status Query Response Date Recorded Mobility: Staff x 1 October 11, 2015 8:30am Allergies, Adverse Reactions, Alerts Allergen Type Severity Reaction Status Last Updated LISINOPRIL Allergy Unknown Active 10/02/15 DIAZEPAM AdvReac Unknown MAKES PATIENT Active 10/04/15 "LOOPY" INDOMETHACIN Allergy Unknown Active 02/11/08 HYDROMORPHONE Allergy Unknown Active 10/02/15 PNEUMOCOCCAL VACCINE Allergy Severe SWELLING Active 10/02/15 Immunizations Name Date Given Type *Flu Shot: Historical *Tetanus Shot: 08/11/1998 Historical *MMR: Up To Date Historical *T Dap: 08/22/2014 Historical Vital Signs Vital Reading Collection Date/Time Result Blood Pressure 10/11/15 11:38am 142/75 Blood Pressure Source 10/11/15 7:37am Brachial Patient Temperature 10/11/15 11:38am 96.6 Temperature Source 10/11/15 7:37am Temporal Respiratory Rate 10/11/15 11:38am 20 Pulse Rate 10/11/15 11:38am 75 Pulse Location 10/11/15 7:37am Monitor Bedside Pulse Oximetry 10/11/15 11:38am 91 Height 10/05/15 3:02pm 167.64 cm Height 10/05/15 3:02pm 5 ft 6 in Weight 10/05/15 3:02pm 107.048 kg Weight 10/05/15 3:02pm 236 lb 0.4 oz Body Mass Index 10/05/15 3:02pm 38.1 Results [place] [id number] ED PHYSICIAN DOCUMENTATION Patient Name: NIESHA DAHL : 31 Unit #: [id number] Patient's Service Date: 09/30/15 ED Physician: Bethany Wheat MD (ED) Primary Physician: Hussain Lu MD See Addendum History of Present Illness General Chief Complaint altered mental state Stated Complaint altered mental state Time Seen by Provider 1029 Source patient, family Exam Limitations clinical condition History of Present Illness Initial Comments The patient arrives with weakness and altered mental state. He has poor hygeine and is covered in urine. his family states he was at his baseline yesterday and woke up weak this morning. Location generalized Context present on waking Quality denies pain, weakness Severity moderate Duration since waking today Timing continuous Allergies Coded Allergies: DIAZEPAM (02/11/08) Converted from Generic Allergy: Diazepam INDOMETHACIN (02/11/08) Converted from Generic Allergy: Indomethacin 10/05- CHEST DISCOMFORT AND SOB AFTER 1- 50 MG PO DOSE 10/05- CHEST DISCOMFORT AND SOB AFTER 1- 50 MG PO DOSE PNEUMOCOCCAL VACCINE (02/11/08) Converted from Generic Allergy: Pneumococcal Vaccine Uncoded Allergies: Allergies: VALIUM PNEUMONIA VACCINE Continued: 03/15-COLONOSCOPY/EGD-08 Home Medications Reported Medications Allopurinol (Zyloprim) 300 MG BY MOUTH #30 Nitroglycerin (Nitro-Dur) 1 PATCH TOPICALLY DAILY #30 Glimepiride (Amaryl) 4 MG BY MOUTH DAILY #30 Venlafaxine HCl (Effexor XR) 150 MG BY MOUTH DAILY #30 Insulin Glargine 100 Units/Ml (Lantus) 0 UNITS SUBCUTANEO DAILY #100 Clonazepam (Klonopin) 1 MG BY MOUTH DAILY #60 MEDICATION RECONCILIATION (Medication Reconciliation) 1 EACH BY MOUTH ONE Review of Systems Review of Systems Was ROS Completed? No Unable to Obtain clinical condition Past Medical History Past Medical History Medical History CHF, COPD, diabetes, GERD, hypertension, CAD, gout Surgical History cardiac stent, coronary bypass surgery, cholecystectomy, left knee surgery, left thumb surgery, dental surgery Social History Smoker Former smoker Physical Exam Physical Exam Nursing Assessment Reviewed Yes Constitutional moderate distress, frail, obese, poor hygiene Eyes bilateral eyes PERRL, bilateral eyes EOMI, bilateral eyes pupils equal Neck normal inspection, supple Respiratory no respiratory distress, decreased breath sounds, rales Cardiovascular regular rate/rhythm, no murmur, no edema Gastrointestinal soft, normal bowel sounds Musculoskeletal generalized weakness Skin warm/dry, erythema of back and buttocks consistent with early pressure ulcer Neurological generalized weakness Psychiatric alert, flat affect, disoriented to time and place Results Results Labs Laboratory Tests 09/29 09/29 09/29 09/29 1057 1057 1057 1057 Chemistry Sodium Pending Potassium Pending Chloride Pending Carbon Dioxide Pending Anion Gap Pending BUN Pending Creatinine Pending GFR Calculation Pending Glucose Pending Calcium Pending Total Bilirubin Pending AST Pending ALT Pending Alkaline Phosphatase Pending Troponin I Pending B-Natriuretic Peptide Pending Total Protein Pending Albumin Pending Albumin/Globulin Ratio Pending Procalcitonin Pending Coagulation PT Pending INR Pending APTT Pending Hematology WBC Pending RBC Pending Hgb Pending Hct Pending Plt Count Pending Neutrophils % Pending Microbiology Microbiology Date/Time Procedure - Status Source Growth 09/29 1029 Blood Culture - ORD Blood EKG EKG Time of EKG 1031 Rate 104 Rhythm sinus tachycardia, right BBB ST Findings ST elevation (II, III, AVF) CT Reviewed by ED provider Yes (head and C spine) Departure Departure Clinical Impression Primary Impression: STEMI (ST elevation myocardial infarction) Qualifiers: Involved coronary artery: unspecified coronary artery Qualified Code: I21.3 - T elevation (STEMI) myocardial infarction of unspecified site Secondary Impressions: Dementia Qualifiers: Dementia type: unspecified type Dementia behavioral disturbance: without behavioral disturbance Qualified Code: F03.90 - nspecified dementia without behavioral disturbance Generalized weakness Time of Disposition 1103 Disposition [facility] Condition Guarded Smoking Education Indicated No Referrals Hussain Lu MD (PCP/Family) Critical Care Note Critical Care Note Total Time (mins) 30 ADDENDUM: BETHANY WHEAT MD on 09/30/[address] Childers who saw the patient in the ER and Dr. Ayers for Dr. Lu who was made aware of the situation. Bethany Wheat MD Electronically Signed 09/30/15 1118 Procedures Procedure Status Date Provider(s) DILATION OF 2 COR ART WITH DRUG-ELUT Completed 09/30/15 Jt Childers DO INTRALUM, PERC APPROACH MEASURE OF CARDIAC SAMPL & PRESSURE, L Completed 09/30/15 Jt Childers DO HEART, PERC APPROACH FLUOROSCOPY OF MULT COR ART USING L OSM Completed 09/30/15 Jt Childers DO CONTRAST FLUOROSCOPY OF SING COR A GRAFT USING L OSM Completed 09/30/15 Jt Childers DO CONTRAST Encounters Encounter Location Arrival/Admit Date Discharge/Depart Date Attending Provider Discharged [place] 10/05/15 11:45am 10/11/15 2:00pm Hussain Lu [facility] Discharged [place] 09/30/15 10:22am 10/05/15 11:30am Hussain Lu [facility] Encounter Diagnosis Onset Date Altered mental status STEMI (ST elevation myocardial infarction) Generalized weakness Dementia Other and unspecified hyperlipidemia Unspecified essential hypertension penitentiary (current) use of anticoagulants Atrial fibrillation Dysthymic disorder Other chronic pain Type 2 diabetes mellitus, uncontrolled Obesity, unspecified Alzheimers disease
--- OUTSIDE RECORDS SUMMARY | 2017-01-28 14:17 | External Medical Summary | Continuity of Care Document ---
:1935 Author Care Team Providers Name Role Phone Hussain Hsu MD Primary Care Physician Unavailable Insurance Providers Payer Name Policy Number Subscriber Name Relationship MCR Medicare [id number] NIESHA DAHL PATIENT/SELF MEDICAID [facility] [id number] NIESHA DAHL PATIENT/SELF Advance Directives Directive Response Recorded Date/Time Advance Directive Information: AD IS ON FILE 04/30/15 3:08pm Chief Complaint and Reason for Visit Reason for Visit MENTAL/DEHYDRATION Problems Active Medical Problems Problem Onset Date Recorded Date Status Altered mental status Unknown 04/30/15 Active Medications Current Home Medications Medication Dose Units Route Directions Days/Qty Instructions Start Date Allopurinol 300 MG BY MOUTH 30 (Zyloprim) 300 MG TABLET Social History No social history. Hospital Discharge Instructions No hospital discharge instructions. Plan of Care Discharge Date 04/30/15 Disposition HOME/SELF CARE Condition at Discharge Stable Instructions/Education Provided DI for Altered Mental Status Prescriptions See Medications Section Referrals Hussain Hsu MD - Additional Instructions/Education FOLLOW UP WITH PCP THI. RETURN IF WORSE OR NEEDED Care Plan and Goals Problem: Mental Status Change Goal: Return to baseline mentation. Plan: Refer to patient instructions provided. Functional Status No functional status results. Allergies, Adverse Reactions, Alerts Allergen Type Severity Reaction Status Last Updated [id number] Allergy Unknown Active 02/11/08 INDOMETHACIN Allergy Unknown Active 02/11/08 PNEUMOCOCCAL VACCINE Allergy Unknown Active 02/11/08 Allergies: Allergy Unknown Active 12/10/07 Continued: Allergy Unknown Active 12/10/07 Immunizations Name Date Given Type *Flu Shot: Historical *Tetanus Shot: Less than 10 Years Historical Vital Signs Vital Reading Collection Date/Time Result Blood Pressure 04/30/15 3:30pm 124/66 Patient Temperature 04/30/15 3:30pm 98.2 Temperature Source 04/30/15 3:30pm Oral Respiratory Rate 04/30/15 3:30pm 20 Pulse Rate 04/30/15 3:30pm 102 Bedside Pulse Oximetry 04/30/15 5:00pm 92 Height 04/30/15 3:30pm 5 ft 2 in Weight 04/30/15 3:30pm 275 lb Body Mass Index 04/30/15 3:30pm 50.3 Results Laboratory Results Test Name Result Units Flags Reference Collection Result Comments Date/Time Date/Time Creatine Kinase 1.2 ng/ml 0.0-3.6 04/30/15 04/30/15 MB 6:00pm 6:36pm Troponin I 0.02 ng/ml 0.00-0.05 04/30/15 04/30/15 6:00pm 6:28pm Lactic Acid 1.9 mmol/L 0.4-2.0 04/30/15 04/30/15 Level 6:00pm 6:27pm Blood Gas pH 7.470 H 7.350-7.45 04/30/15 04/30/15 0 5:35pm 5:42pm Blood Gas PCO2 38.0 mmHg 35.0-45.0 04/30/15 04/30/15 5:35pm 5:42pm Blood Gas PO2 62.0 mmHg L 80-100 04/30/15 04/30/15 5:35pm 5:42pm Blood Gas Base 3.9 mEq/L H -2.0-2.0 04/30/15 04/30/15 Excess 5:35pm 5:42pm Blood Gas HCO3 27.7 mEq/L H 22.0-26.0 04/30/15 04/30/15 5:35pm 5:42pm Blood Gas Total 28.9 mEq/L 21-33 04/30/15 04/30/15 CO2 5:35pm 5:42pm Blood Gas 15.9 gm/dL 13.5-17.5 04/30/15 04/30/15 Hemoglobin 5:35pm 5:42pm Oxyhemoglobin 91 % 88-100 04/30/15 04/30/15 Percent 5:35pm 5:42pm Carboxyhemoglobi 1.300 % 0.0-1.5 04/30/15 04/30/15 n 5:35pm 5:42pm Methemoglobin 1.3 % 0.4-1.5 04/30/15 04/30/15 5:35pm 5:42pm Oxygen Content 20.3 Vol % 16.0-23.0 04/30/15 04/30/15 5:35pm 5:42pm Blood Gas 21.0 % 04/30/15 04/30/15 Inspired Oxygen 5:35pm 5:42pm Blood Gas R Radial 04/30/15 04/30/15 Puncture Site 5:35pm 5:42pm Aguilar Test Positive Positive 04/30/15 04/30/15 5:35pm 5:42pm White Blood 9.4 10^3/uL 4.5-11.0 04/30/15 04/30/15 Count 4:43pm 5:40pm Red Blood Count 4.96 10^6/uL 4.70-6.00 04/30/15 04/30/15 4:43pm 5:40pm Hemoglobin 15.3 g/dl 13.5-17.5 04/30/15 04/30/15 4:43pm 5:40pm Hematocrit 47.3 % 41-53 04/30/15 04/30/15 4:43pm 5:40pm Mean Corpuscular 95.4 fL # 80-100 04/30/15 04/30/15 Volume 4:43pm 5:40pm Mean Corpuscular 30.8 pg 25.0-34.0 04/30/15 04/30/15 Hemoglobin 4:43pm 5:40pm Mean Corpuscular 32.3 g/dL 31.0-36.0 04/30/15 04/30/15 Hemoglobin 4:43pm 5:40pm Concent Red Cell 14.4 % 11.0-15.0 04/30/15 04/30/15 Distribution 4:43pm 5:40pm Width Platelet Count 254 10^3/uL 130-400 04/30/15 04/30/15 4:43pm 5:40pm Mean Platelet 9.3 fL 7.0-11.0 04/30/15 04/30/15 Volume 4:43pm 5:40pm Neutrophils % 61.9 % 43.0-72.0 04/30/15 04/30/15 4:43pm 5:40pm Lymphocytes % 26.9 % 15.0-45.0 04/30/15 04/30/15 4:43pm 5:40pm Monocytes % 7.1 % 1.0-12.0 04/30/15 04/30/15 4:43pm 5:40pm Eosinophils % 2.7 % 0.0-6.0 04/30/15 04/30/15 4:43pm 5:40pm Basophils % 1.4 % 0.0-2.0 04/30/15 04/30/15 4:43pm 5:40pm Neutrophils # 5.8 10^3/uL 1.0-8.0 04/30/15 04/30/15 4:43pm 5:40pm Lymphocytes # 2.5 10^3/uL 1.0-3.0 04/30/15 04/30/15 4:43pm 5:40pm Monocytes # 0.7 10^3/uL 0.0-1.0 04/30/15 04/30/15 4:43pm 5:40pm Eosinophils # 0.3 10^3/uL 0.0-0.4 04/30/15 04/30/15 4:43pm 5:40pm Basophils # 0.1 10^3/uL 0.0-0.2 04/30/15 04/30/15 4:43pm 5:40pm Sodium Level 136 mmol/L 135-150 04/30/15 04/30/15 4:43pm 5:39pm Potassium Level 4.0 mmol/L 3.4-5.2 04/30/15 04/30/15 4:43pm 5:39pm Chloride Level 99 mmol/L L 100-112 04/30/15 04/30/15 4:43pm 5:39pm Carbon Dioxide 29 meq/L 21-33 04/30/15 04/30/15 Level 4:43pm 5:39pm Anion Gap 8 mmol/L 8-16 04/30/15 04/30/15 4:43pm 5:39pm Glucose Level 252 mg/dl H 70-99 04/30/15 04/30/15 4:43pm 5:39pm Blood Urea 15 mg/dl 5-21 04/30/15 04/30/15 Nitrogen 4:43pm 5:39pm Creatinine 1.05 mg/dl 0.60-1.30 04/30/15 04/30/15 4:43pm 5:39pm Glomerular > 60 mL/Min > 60 04/30/15 04/30/15 The GFR is not validated for use in drug dosing adjustments. Filtration Rate 4:43pm 5:39pm Continue to use estimated creatinine clearance per dosing Calc reference text. Chronic Kidney Disease is defined as either kidney damage or a GFR less than 60 ml/min that persists for at least 3 months. Stage 3=30-59 ml/min Stage 4=15-29 ml/min Stage 5=<15 ml/min Alkaline 115 U/L 46-116 04/30/15 04/30/15 Phosphatase 4:43pm 5:39pm Total Bilirubin 0.5 mg/dl 0.0-1.2 04/30/15 04/30/15 4:43pm 5:39pm Aspartate Amino 31 U/L 6-37 04/30/15 04/30/15 Transf 4:43pm 5:39pm (AST/SGOT) Alanine 43 U/L 12-78 04/30/15 04/30/15 Aminotransferase 4:43pm 5:39pm (ALT/SGPT) Total Protein 7.6 g/dl 6.4-8.2 04/30/15 04/30/15 4:43pm 5:39pm Albumin 3.0 g/dl L 3.3-4.5 04/30/15 04/30/15 4:43pm 5:39pm Albumin/Globulin 0.7 0.7-2.0 04/30/15 04/30/15 Ratio 4:43pm 5:39pm Calcium Level 8.9 mg/dl 8.6-10.5 04/30/15 04/30/15 4:43pm 5:39pm Procalcitonin < 0.05 ng/ml L 0.0-0.10 04/30/15 04/30/15 PCT Conc. Interpretation 4:43pm 6:09pm ------ < 0.5 ng/mL Low risk for progression to severe sepsis &/or shock 0.5-2.0 ng/mL Sepsis should be considered > 2.0 ng/mL High risk for progression to severe sepsis &/or shock Bedside Glucose 126 mg/dl H 70-99 04/18/06 04/18/06 4:00pm 4:06pm Sodium Level 134 mmol/L L 135-150 04/17/06 04/17/06 5:22am 5:58am Potassium Level 3.5 mmol/L 3.4-5.2 04/17/06 04/17/06 5:22am 5:58am Chloride Level 100 mmol/L 100-112 04/17/06 04/17/06 5:22am 5:58am Carbon Dioxide 27 meq/L 21-33 04/17/06 04/17/06 Level 5:22am 5:58am Glucose Level 118 mg/dl H 70-99 04/17/06 04/17/06 5:22am 5:58am Blood Urea 9 mg/dl 5-21 04/17/06 04/17/06 Nitrogen 5:22am 5:58am Creatinine 1.0 mg/dl 0.6-1.3 04/17/06 04/17/06 5:22am 5:58am Uric Acid 5.4 mg/dl 3.5-7.2 04/17/06 04/17/06 5:22am 5:58am Calcium Level 8.7 mg/dl 8.6-10.5 04/17/06 04/17/06 5:22am 5:58am White Blood 8.3 10^3/uL 4.5-11.0 04/16/06 04/16/06 Count 1:15pm 1:30pm Red Blood Count 4.33 10^6/uL L 4.70-6.00 04/16/06 04/16/06 1:15pm 1:30pm Hemoglobin 10.6 g/dL L 13.5-17.5 04/16/06 04/16/06 1:15pm 1:30pm Hematocrit 31.9 % L 41-53 04/16/06 04/16/06 1:15pm 1:30pm Mean Corpuscular 73.8 fL L 80-100 04/16/06 04/16/06 Volume 1:15pm 1:30pm Mean Corpuscular 24.5 pg L 25.0-34.0 04/16/06 04/16/06 Hemoglobin 1:15pm 1:30pm Mean Corpuscular 33.2 g/dL 31.0-36.0 04/16/06 04/16/06 Hemoglobin 1:15pm 1:30pm Concent Red Cell 21.2 % H 11.0-15.0 04/16/06 04/16/06 Distribution 1:15pm 1:30pm Width Platelet Count 442 10^3/uL H 130-400 04/16/06 04/16/06 1:15pm 1:30pm Mean Platelet 7.5 fL 7.0-11.0 04/16/06 04/16/06 Volume 1:15pm 1:30pm Manual Manual 04/16/06 04/16/06 Differential Diff 1:15pm 1:31pm Neutrophils 87 H 50-65 04/16/06 04/16/06 (Manual) 1:15pm 2:11pm Band Neutrophils 1 0-10 04/16/06 04/16/06 1:15pm 2:11pm Lymphocytes 9 L 15-45 04/16/06 04/16/06 (Manual) 1:15pm 2:11pm Monocytes 3 0-10 04/16/06 04/16/06 (Manual) 1:15pm 2:11pm Anisocytosis 2+ 04/16/06 04/16/06 1:15pm 2:11pm Microcytosis 1+ 04/16/06 04/16/06 1:15pm 2:11pm Polychromasia 1+ 04/16/06 04/16/06 1:15pm 2:11pm Alkaline 88 U/L 50-136 04/16/06 04/16/06 Phosphatase 12:12pm 12:44pm Total Bilirubin 0.9 mg/dl 0.0-1.2 04/16/06 04/16/06 12:12pm 12:44pm Aspartate Amino 15 U/L 6-37 04/16/06 04/16/06 Transf 12:12pm 12:44pm (AST/SGOT) Alanine 24 U/L 12-65 04/16/06 04/16/06 Aminotransferase 12:12pm 12:44pm (ALT/SGPT) Total Protein 6.9 g/dl 6.4-8.2 04/16/06 04/16/06 12:12pm 12:44pm Albumin 2.7 g/dl L 3.3-4.5 04/16/06 04/16/06 12:12pm 12:44pm Albumin/Globulin 0.6 L 0.7-2.0 04/16/06 04/16/06 Ratio 12:12pm 12:44pm Prothrombin Time 12.1 Seconds H 9.2-11.4 04/16/06 04/16/06 12:12pm 2:00pm INR 1.17 H 0.90-1.10 04/16/06 04/16/06 Therapeutic Range: International 12:12pm 2:00pm Normalized Ratio Prophylaxis - Thrombosis 2.0-3.0 Mechanical Heart Valves 2.5-3.5 Myocardial Infarction 2.0-3.0 Activated 29.1 Seconds H 22.1-29.0 04/16/06 04/16/06 Partial 12:12pm 2:00pm Thromboplast Time White Blood 7.2 10^3/uL 4.5-11.0 06/03/04 06/03/04 Count 4:25am 5:39am Red Blood Count 4.34 10^6/uL L 4.70-6.00 06/03/04 06/03/04 4:25am 5:39am Hemoglobin 9.5 g/dL L 13.5-17.5 06/03/04 06/03/04 4:25am 5:39am Hematocrit 29.6 % L 41-53 06/03/04 06/03/04 4:25am 5:39am Mean Corpuscular 68.3 fL L 80-100 06/03/04 06/03/04 Volume 4:25am 5:39am Mean Corpuscular 22.0 pg L 25.0-34.0 06/03/04 06/03/04 Hemoglobin 4:25am 5:39am Mean Corpuscular 32.2 g/dL 31.0-36.0 06/03/04 06/03/04 Hemoglobin 4:25am 5:39am Concent Red Cell 18.5 % H 11.0-15.0 06/03/04 06/03/04 Distribution 4:25am 5:39am Width Platelet Count 309 10^3/uL 130-400 06/03/04 06/03/04 4:25am 5:39am Mean Platelet 8.1 fL 7.0-11.0 06/03/04 06/03/04 Volume 4:25am 5:39am Manual Manual 06/03/04 06/03/04 Differential Diff 4:25am 5:40am Neutrophils 77 H 50-65 06/03/04 06/03/04 (Manual) 4:25am 5:59am Lymphocytes 18 15-45 06/03/04 06/03/04 (Manual) 4:25am 5:59am Monocytes 3 0-10 06/03/04 06/03/04 (Manual) 4:25am 5:59am Eosinophils 2 0-5 06/03/04 06/03/04 (Manual) 4:25am 5:59am Anisocytosis 1+ 06/03/04 06/03/04 4:25am 5:59am Microcytosis 1+ 06/03/04 06/03/04 4:25am 5:59am Hypochromasia 2+ 06/03/04 06/03/04 4:25am 5:59am Urine Color Yellow Yellow 06/02/04 06/02/04 8:56pm 9:09pm Urine Appearance Clear Clear 06/02/04 06/02/04 8:56pm 9:09pm Urine Glucose Negative Negative 06/02/04 06/02/04 8:56pm 9:09pm Urine Bilirubin Negative Negative 06/02/04 06/02/04 8:56pm 9:09pm Urine Ketones Negative Negative 06/02/04 06/02/04 8:56pm 9:09pm Urine Specific 1.015 1.003-.029 06/02/04 06/02/04 [place] 8:56pm 9:09pm Urine pH 6.5 4.5 - 7.5 06/02/04 06/02/04 8:56pm 9:09pm Urine Protein Negative Negative 06/02/04 06/02/04 8:56pm 9:09pm Urine 1.0 <=1.0 06/02/04 06/02/04 Urobilinogen 8:56pm 9:09pm Urine Nitrate Negative Negative 06/02/04 06/02/04 8:56pm 9:09pm Urine Blood Negative Negative 06/02/04 06/02/04 8:56pm 9:09pm Urine Leukocyte Negative Negative 06/02/04 06/02/04 Esterase 8:56pm 9:09pm N/A No 06/02/04 06/02/04 No Culture 8:56pm 9:09pm Reflex Ordered. Band Neutrophils 1 0-10 06/02/04 06/02/04 8:55pm 9:18pm Sodium Level 135 mmol/L 135-150 06/02/04 06/02/04 8:55pm 9:20pm Potassium Level 3.7 mmol/L 3.4-5.2 06/02/04 06/02/04 8:55pm 9:20pm Chloride Level 98 mmol/L L 100-112 06/02/04 06/02/04 8:55pm 9:20pm Carbon Dioxide 32 meq/L 21-33 06/02/04 06/02/04 Level 8:55pm 9:20pm Glucose Level 165 mg/dl H 70-99 06/02/04 06/02/04 Normal Range is 8:55pm 9:20pm based on a fasting specimen. Blood Urea 12 mg/dl 5-21 06/02/04 06/02/04 Nitrogen 8:55pm 9:20pm Creatinine 1.2 mg/dl 0.6-1.3 06/02/04 06/02/04 8:55pm 9:20pm Alkaline 94 U/L 50-136 06/02/04 06/02/04 Phosphatase 8:55pm 9:20pm Total Bilirubin 0.8 mg/dl 0.0-1.2 06/02/04 06/02/04 8:55pm 9:20pm Aspartate Amino 13 U/L 6-37 06/02/04 06/02/04 Transf 8:55pm 9:20pm (AST/SGOT) Alanine 27 U/L 12-65 06/02/04 06/02/04 Aminotransferase 8:55pm 9:20pm (ALT/SGPT) Total Protein 7.4 g/dl 6.4-8.2 06/02/04 06/02/04 8:55pm 9:20pm Albumin 3.7 g/dl 3.3-4.5 06/02/04 06/02/04 8:55pm 9:20pm Albumin/Globulin 1.0 0.7-2.0 06/02/04 06/02/04 Ratio 8:55pm 9:20pm Calcium Level 9.3 mg/dl 8.6-10.5 06/02/04 06/02/04 8:55pm 9:20pm Amylase Level 44 U/L 16-115 06/02/04 06/02/04 8:55pm 9:20pm Lipase 237 U/L 114-286 06/02/04 06/02/04 8:55pm 9:20pm Prothrombin Time 12.7 Seconds H 9.2-11.4 06/02/04 06/02/04 8:55pm 10:41pm INR 1.24 H 0.90-1.10 06/02/04 06/02/04 Therapeutic Range: International 8:55pm 10:41pm Normalized Ratio Prophylaxis - Thrombosis 2.0-3.0 Mechanical Heart Valves 2.5-3.5 Myocardial Infarction 2.0-3.0 Procedures No Known History of Procedures. Encounters Encounter Location Arrival/Admit Date Discharge/Depart Date Attending Provider Departed [facility] 04/30/15 3:07pm 04/30/15 7:00pm [facility] Darlene Nava MD Health Encounter Diagnosis Altered mental status
--- OUTSIDE RECORDS SUMMARY | 2017-01-28 14:17 | External Medical Summary | Continuity of Care Document ---
:1935 Author Organization [facility] Care Team Providers Name Role Phone Hussain Hsu MD Primary Care Physician Unavailable Insurance Providers Payer Name Policy Number Subscriber Name Relationship * [id number] NIESHA DAHL PATIENT/SELF Medicare [id number] NIESHA DAHL PATIENT/SELF [facility] [id number] NIESHA DAHL PATIENT/SELF Advance Directives Directive Response Recorded Date/Time Advance Directive Information: INSTRUCTED TO BRING AD 12/22/16 6:08pm Chief Complaint and Reason for Visit Reason for Visit STROKE SYMPTOM Problems Active Medical Problems Problem Onset Date Recorded Date Status Altered mental status Unknown 04/30/15 Active STEMI (ST elevation myocardial infarction) Unknown 09/30/15 Active Generalized weakness Unknown 09/30/15 Active Dementia Unknown 09/30/15 Active Other and unspecified hyperlipidemia Unknown 10/02/15 Active Unspecified essential hypertension Unknown 10/02/15 Active detention (current) use of anticoagulants Unknown 10/02/15 Active Atrial fibrillation Unknown 10/02/15 Active Dysthymic disorder Unknown 10/02/15 Active Other chronic pain Unknown 10/02/15 Active Type 2 diabetes mellitus, uncontrolled Unknown 10/02/15 Active Obesity, unspecified Unknown 10/02/15 Active Alzheimers disease Unknown 10/02/15 Active Hypoxia Unknown 02/03/16 Active Rib fractures Unknown 02/03/16 Active UTI (urinary tract infection) Unknown 12/22/16 Active Medications Current Home Medications Medication Dose Units Route Directions Days/Qty Instructions Start Date Allopurinol 300 MG BY MOUTH DAILY 30 (Zyloprim) 300 MG TABLET Aspirin (Adult 81 MG BY MOUTH DAILY Low Dose Aspirin EC) 81 MG TABLET Carvedilol* 6.25 MG BY MOUTH TWICE DAILY 60 (Coreg*) 6.25 MG WITH MEALS UD.TAB Cephalexin 500 MG BY MOUTH FOUR TIMES 40 12/22/16 (Keflex) 500 MG DAILY CAPSULE Clonazepam 1 MG BY MOUTH BEDTIME 60 (Klonopin) 1 MG TABLET Clopidogrel* 75 MG BY MOUTH DAILY For 30 10/10/15 (Plavix*) 75 MG stents TABLET Furosemide 40 MG 40 MG BY MOUTH DAILY 30 10/10/15 TABLET Insulin Glargine 25 UNITS SUBCUTANEO TWICE DAILY 100 Units/Ml (Lantus) 100 UNIT/1 ML INJ Lisinopril 2.5 MG BY MOUTH DAILY For 30 10/10/15 (Prinivil) 5 MG coronary TABLET disease Nitroglycerin Sl 0.4 MG SUBLINGUAL 1 TABLET [...] Medications Medication Directions Ordered Status Medication Reconciliation ONE TIME ONLY Unknown Discontinued (Medication Reconciliation) 1 Each Ea Ea, 1 Each By Mouth Ciprofloxacin* (Cipro*) 500 Mg EVERY 12 HOURS Unknown Discontinued Tablet Tablet, 500 Mg By Mouth Esomeprazole Magnesium (Nexium) 40 DAILY Unknown Discontinued Mg Capsule.dr Capsule.dr, 40 Mg By Mouth Furosemide* (Lasix*) 80 Mg Tablet DAILY Unknown Discontinued Tablet, 80 Mg By Mouth Glimepiride (Amaryl) 4 Mg Tablet DAILY Unknown Discontinued Tablet, 4 Mg By Mouth Hydrocodone/Acetaminophen EVERY 4 HOURS NEEDED PRN Unknown Discontinued (Hydrocodone/Apap 5/325) 1 Each PAIN Tablet Tablet, 1 Tab By Mouth Insulin Aspart, Human Analog 1800 Unknown Discontinued (Novolog Flexpen Prefilled Syringe) 100 Units/Ml Inj Inj, 20 UnitsSubcutaneo Insulin Glargine 100 Units/Ml TWICE DAILY Unknown Discontinued (Lantus) 100 Unit/1 Ml Inj Inj, 85 Units Subcutaneo Lovastatin (Mevacor) 20 Mg Tablet BEDTIME Unknown Discontinued Tablet, 20 Mg By Mouth Metoprolol Tartrate (Lopressor 50MG TWICE DAILY Unknown Discontinued Tab) 50 Mg Ud.tab Ud.tab, 25 Mg By Mouth Nitroglycerin (Nitro-Dur) 0.3 Mg/Hr DAILY Unknown Discontinued Patch.td24 Patch.td24, 1 Patch Topically Nystatin (Nystatin Cream 30GM) 10 TWICE DAILY Unknown Discontinued Applic/Gm Cr Cr, 1 Applic Topically Social History No social history. Hospital Discharge Instructions ======DISCHARGE WITH THE FOLLOWING INSTRUCTIONS====== Reason for Hospitalization: hypoxia Condition at Discharge: stable Physician: Hussain Hsu Discharge Diet: regular high fiber Discharge Activity: as tolerated with assistance Return Appointment: dismiss with [facility] Vaccinations Given: None Given If you need assistance in contacting your physician or his/ her designee call [facility] switchboard at [phone]. At [facility] we strive to provide excellent care to all patients, every visit. We appreciate any feedback from those we serve to make sure that we are meeting our goal. After dismissal, you may receive a phone call from [facility] to ask about your overall experience. We [...] (Patient has received & understands dismissal instructions.) CHF DISMISSAL INSTRUCTIONS / DISCHARGE CARE PLAN DIET 1. Eat low sodium diet, less than 2000 mg of sodium per day. 2. DO NOT add salt to food, (try seasoning with low sodium herbs and seasonings). 3. Look for food that contain less than 140 mg of sodium per serving. 4. Fluids, Limit fluid intake to 1.5 to 2 liters per day. 5. Limit of no more than 2 caffeinated drinks per day. 6. Avoid Alcohol. ACTIVITY 1. Regular exercise may help strengthen your heart and improve your energy level. 2. Clarify with your doctor/provider what type of activity would be best for you. 3. Space activities with planned rest periods during the day 4. DO NOT work outside in extreme hot, cold, humid weather. 5. Avoid high altitudes. SPECIAL CARE 1. Weigh yourself around the same time each day (i.e before breakfast). 2. Use same scales and wear the same amount of clothing. 3. Write your weight down or record on a calendar. 4. Notify your doctor for any 2-3 lb. weight gain in 1 day or 3-5 lb. weight gain in 1 week. 5. WARNING SIGNS.....CALL YOUR DOCTOR OR PROVIDER A. Increase of 2-3 lbs. in 1 day or 3-5 lbs in 1 week. B. Increase cough. C. Increase swelling in legs, ankles or feet. D. Increased shortness of breath with activity. E. 'I just don't feel right.' F. Increased number of pillows needed to sleep or needing to sleep in chair or recliner. 6. ALARM......CALL 911 A. Unrelieved shortness of breath. B. Unrelieved chest pain. C. Wheezing or chest tightness at rest. D. Chest pain not relieved by Nitro tablets, as directed. E. Confused and not thinking straight. F. Extreme fatigue. Vaccinations Given: None Given Please bring ALL of your medications and your written weight record to your appointment. If you have not received your flu or pneumonia vaccine, ask your Doctor about them at your appointment. Call Dietitian for questions at , Extension [phone]. (Teach back method utilized to ensure patient understanding of instructions.) (Patient has received & understands dismissal instructions.) Plan of Care Discharge Date 12/22/16 Disposition [facility] Condition at Discharge Satisfactory Instructions/Education Provided Urinary Tract Infection in Men (ED) Prescriptions See Medications Section Referrals Hussain Hsu MD - Additional Instructions/Education follow up if problems Care Plan and Goals Problem: Weakness Goal: Increased strength. Plan: Refer to patient instructions provided. Functional Status No functional status results. Allergies, Adverse Reactions, Alerts Allergen Type Severity Reaction Status Last Updated DIAZEPAM AdvReac Unknown MAKES PATIENT Active 10/04/15 "LOOPY" INDOMETHACIN Allergy Unknown Active 02/11/08 HYDROMORPHONE Allergy Unknown Active 10/02/15 PNEUMOCOCCAL VACCINE Allergy Severe SWELLING Active 10/02/15 Immunizations Name Date Given Type *Flu Shot: Unknown Historical *Tetanus Shot: Unknown Historical *MMR: Up To Date Historical *T Dap: 08/22/2014 Historical Vital Signs Vital Reading Collection Date/Time Result Blood Pressure 12/22/16 10:05pm 108/62 Patient Temperature 12/22/16 10:05pm 98.9 Temperature Source 12/22/16 8:56pm Temporal Respiratory Rate 12/22/16 10:05pm 20 Pulse Rate 12/22/16 10:05pm 88 Bedside Pulse Oximetry 12/22/16 10:05pm 99 Height 12/22/16 8:56pm 5 ft 4 in Weight 12/22/16 8:56pm 211.2 lb Body Mass Index 12/22/16 8:56pm 36.[address] [address] ED PHYSICIAN DOCUMENTATION Patient Name: NIESHA DAHL : 31 Unit #: [id number] Patient's Service Date: 12/22/16 ED Physician: Keith Kirk Jr, MD Primary Physician: Hussain Hsu MD History of Present Illness General Chief Complaint Stroke Symptoms Stated Complaint STROKE SYMPTOM Time Seen by Provider 181 History of Present Illness Initial Comments more facial droop noted at the nh this pm. recent MRI with recent cva. Location generalized Context present at rest Quality denies pain Severity moderate Duration hours Allergies Coded Allergies: PNEUMOCOCCAL VACCINE (Severe, SWELLING 10/02/15) Converted from Generic Allergy: Pneumococcal Vaccine HYDROMORPHONE (10/02/15) INDOMETHACIN (02/11/08) Converted from Generic Allergy: Indomethacin 10/05- CHEST DISCOMFORT AND SOB AFTER 1- 50 MG PO DOSE 10/05- CHEST DISCOMFORT AND SOB AFTER 1- 50 MG PO DOSE DIAZEPAM (MAKES PATIENT "LOOPY" 10/04/15) Converted from Generic Allergy: Diazepam Home Medications Active Scripts Clopidogrel* (Plavix*) 75 MG BY MOUTH DAILY #30 TAB Ref 5 Prov: 10/10/15 Lisinopril (Prinivil) 2.5 MG BY MOUTH DAILY #30 TAB Ref 5 Prov: 10/10/15 Furosemide 40 MG BY MOUTH DAILY #30 TAB Ref 3 Prov: 10/10/15 Potassium Chloride (Klor-Con M10) 20 MEQ BY MOUTH DAILY #60 TAB Ref 5 Prov: 10/10/15 Reported Medications Venlafaxine HCl (Effexor XR) 150 MG BY MOUTH DAILY #30 Carvedilol* (Coreg*) 6.25 MG BY MOUTH BID WM #60 Insulin Glargine 100 Units/Ml (Lantus) 25 UNITS SUBCUTANEO BID Allopurinol (Zyloprim) 300 MG BY MOUTH DAILY #30 TAB Clonazepam (Klonopin) 1 MG BY MOUTH BEDTIME #60 TAB Aspirin (Adult Low Dose Aspirin EC) 81 MG BY MOUTH DAILY Oxycodone 5 MG W/Actm 325 MG (Percocet 5/325) 1-2 TAB BY MOUTH Q4H PRN PRN PAIN Tamsulosin (Flomax SR) 0.4 MG BY MOUTH DAILY Nitroglycerin Sl (Nitrostat) 0.4 MG SUBLINGUAL PRN Q 5 MIN X 3 SL PRN CHEST PAIN Review of Systems Review of Systems Was ROS Completed? Yes Limited By dementia Constitutional Reports weakness, Denies fever, Denies chills Respiratory Denies short of breath Cardiovascular Denies chest pain Gastrointestinal Denies nausea, Denies vomiting Neurological Denies headache Past Medical History Past Medical History Medical History CHF, COPD, diabetes, GERD, hypertension, CAD gout Surgical History cardiac stent, coronary bypass surgery, cholecystectomy, left knee surgery left thumb surgery dental surgery Social History Smoker Former smoker Physical Exam Physical Exam Nursing Assessment Reviewed Yes Initial Vital Signs Vital Signs Result Date Time Pulse Ox 92 12/23 2055 B/P 115/68 12/23 2055 Temp 98.9 12/23 2055 Pulse 103 12/23 2055 Resp 20 12/23 2055 NIH Stroke Scale Completed Yes Constitutional well developed, well nourished, mild distress Eyes bilateral eyes PERRL, bilateral eyes EOMI Ear, Nose, Throat normal TM (R), normal TM (L), nasal exam WNL, dry mm Neck normal inspection, non-tender Respiratory decreased breath sounds, rhonchi Cardiovascular no murmur, irregularly irregular Gastrointestinal soft, non tender, normal bowel sounds Musculoskeletal gait WNL, normal strength Skin normal color, warm/dry Neurological no motor deficit, no sensory deficit Results Results Labs Laboratory Tests 12/22 12/22 12/22 1820 1820 1999 Chemistry Sodium (135 - 150 mmol/L) 138 Potassium (3.4 - 5.2 mmol/L) 3.8 Chloride (100 - 112 mmol/L) 102 Carbon Dioxide (18 - 30 mEq/L) 27 Anion Gap (8 - 16 mmol/L) 9 BUN (5 - 21 mg/dL) 26 H Creatinine (0.60 - 1.30 mg/dL) 1.23 GFR Calculation (> 60 mL/Min) 56 Glucose (70 - 99 mg/dL) 161 H Calcium (8.6 - 10.5 mg/dL) 9.7 Total Bilirubin (0.0 - 1.2 mg/dL) 1.2 AST (6 - 37 U/L) 20.0 ALT (12 - 78 U/L) 18.0 Alkaline Phosphatase (50 - 136 U/L) 108.0 Troponin I (0.00 - 0.05 ng/mL) 0.02 B-Natriuretic Peptide (<100 pg/mL) 65.2 Total Protein (6.4 - 8.2 g/dL) 7.2 Albumin (3.3 - 4.5 g/dL) 3.4 Albumin/Globulin Ratio (0.7 - 2.0) 0.9 Coagulation PT (11.9 - 14.4 Seconds) 14.0 INR (0.87 - 1.13) 1.09 APTT (23.9 - 34.0 Seconds) 28.7 Hematology WBC (4.5 - 11.0 10^3/uL) 7.3 RBC (4.70 - 6.00 10^6/uL) 4.50 L Hgb (13.5 - 17.5 g/dl) 13.3 L Hct (41 - 53 %) 41.5 MCV (80 - 100 fL) 92.2 MCH (25.0 - 34.0 pg) 29.6 MCHC (31.0 - 36.0 g/dL) 32.1 RDW (11.0 - 15.0 %) 16.7 H Plt Count (130 - 400 10^3/uL) 206 MPV (7.0 - 11.0 fL) 9.6 Neutrophils % (43.0 - 72.0 %) 60.2 Lymphocytes % (15.0 - 45.0 %) 29.1 Monocytes % (1.0 - 12.0 %) 7.6 Eosinophils % (0.0 - 6.0 %) 2.2 Basophils % (0.0 - 2.0 %) 0.9 Neutrophils # (1.0 - 8.0 10^3/uL) 4.4 Lymphocytes # (1.0 - 3.0 10^3/uL) 2.1 Monocytes # (0.0 - 1.0 10^3/uL) 0.6 Eosinophils # (0.0 - 0.4 10^3/uL) 0.2 Basophils # (0.0 - 0.2 10^3/uL) 0.1 Urines Urine Color (Yellow) Yellow Urine Appearance (Clear) Sl Cloudy H Urine pH (4.5 - 7.5) 5.5 Ur Specific [place] (1.010 - .025) 1.015 Urine Protein (Negative) Negative Urine Ketones (Negative) Negative Urine Blood (Negative) Negative Urine Nitrate (Negative) Negative Urine Bilirubin (Negative) Negative Urine Urobilinogen (<=1.0) 0.2 Ur Leukocyte Esterase (Negative) 2+ H Urine RBC (0 - 5) O - 2 Urine WBC (0 - 5) 10 - 25 H Ur Epithelial Cells (0 - 2) O - 2 Amorphous Crystals (None Seen) 1+ H Urine Bacteria (Negative) Trace H Urine Mucus (None Seen) 2+ H Urine Glucose (Negative) Negative Microbiology Microbiology Date/Time Procedure - Status Source Growth 12/23 1999 Urine Culture - RECD UA Cath EKG EKG Time of EKG 182 Rate 103 Rhythm sinus tachycardia [place] normal axis ST Findings old changes Intervals long MD interval Progress Note Medications Medications Medications Given in the ED Sig/Leann Start time Last Medication Dose Route Stop Time Status Admin Ceftriaxone Sodium/ 50 ML ONE ONE 12/23 2035 DC 12/22 Dextrose IV 12/22 (ROCEPHIN 1 GRAM/50 ML PREMIX) Sodium Chloride 1,000 ML .Q1H 12/23 1915 DC 12/22 (0.9% Sodium IV 12/22 Chloride) tPA Consideration Was tPA contraindicated? Yes Departure Departure Clinical Impression Primary Impression: UTI (urinary tract infection) Time of Disposition 2111 Disposition [facility] Condition Satisfactory Tobacco Education Tobacco Non-User Patient Instructions Urinary Tract Infection in Men (ED) Referrals Hussain Hsu MD (PCP) Additional Instructions follow up if problems Prescriptions Current Visit Scripts Cephalexin (Keflex) 500 MG BY MOUTH QID #40 CAP Qualifiers UTI (urinary tract infection) Urinary tract infection type: acute cystitis Hematuria presence: with hematuria Qualified Code: N30.01 - Acute cystitis with hematuria Keith Kirk Jr, MD Electronically Signed 12/22/162112 Procedures No Known History of Procedures. Encounters Encounter Location Arrival/Admit Date Discharge/Depart Date Attending Provider Departed [place] 12/22/16 6:07pm 12/22/16 10:05pm Reagan Bhardwaj, Emergency [facility] Keith Del Castillo MD Health Registered [place] 12/20/16 7:44am Hussain Hsu Clinical [facility] Registered [place] 12/13/16 7:15am Hussain Hsu Referral [facility] Encounter Diagnosis Urinary tract infection
--- OUTSIDE RECORDS SUMMARY | 2017-01-28 14:17 | External Medical Summary | Referral Summary ---
:1935 Author Organization [facility] Address [address] [place] [address] Encounter [facility] Date(s): 12/08/15 - 12/08/15 [facility] [address] [place] [address]- [place] Discharge Disposition: 01-Home or Self Care Attending Physician: Rishabh Mcarthur MD Admitting Physician: Rishabh Mcarthur MD Vital Signs No data available for this section Problem List Condition Effective Dates Status Health Status Informant Obesity(Confirmed) Active patient Allergies, Adverse Reactions, Alerts Substance Reaction Severity Status Allergy1 Active diazepam Active HYDROmorphone Active indomethacin Active 1Allergic to Pneumonia Vaccine Medications allopurinol 300 mg, Daily Start Date: 12/08/15 Status: Orderedaspirin 81 mg, Daily Start Date: 12/08/15 Status: Orderedcarvedilol 12.5 mg, Oral, BID, half a tab twice a day Start Date: 12/08/15 Status: OrderedclonazePAM 1 mg, Oral, Daily, 1tab at 8pm Start Date: 12/08/15 Status: Orderedclopidogrel 75 mg, Oral, Daily Start Date: 12/08/15 Status: Orderedfurosemide 40 mg, Daily Start Date: 12/08/15 Status: OrderedKlor-Con Oral Start Date: 12/08/15 Status: OrderedLantus 30 units, SubCutaneous, at 7am and at 8pm, 0 Refill(s) Start Date: 12/08/15 Status: Orderedlisinopril 5 mg, Oral, Daily, half a tab at 8pm Start Date: 12/08/15 Status: Orderedlovastatin 20 mg, Oral, Daily Start Date: 12/08/15 Status: OrderedNexIUM 40 mg, Oral, Daily Start Date: 12/08/15 Status: OrderedNitrostat 0.4 mg, SubLingual, q5min Start Date: 12/08/15 Status: OrderedoxyCODONE-acetaminophen 5 mg-325 mg oral tablet 1 tabs, Oral, Daily, 0 Refill(s) Start Date: 12/08/15 Status: Orderedtamsulosin 0.4 mg, Oral, Daily Start Date: 12/08/15 Status: Orderedvenlafaxine 150 mg, Oral, Daily Start Date: 12/08/15 Status: Ordered Results No data available for this section Immunizations No data available for this section Procedures Procedure Date Related Diagnosis Body Site Bypass Cataracts gall bladder Heart attack Left elbow Left knee Nosebleed Oral1 Stent2 1teeth [id number] Social History Social History Type Response Smoking Status Former smoker; Type: Cigarettes Assessment and Plan No data available for this section
--- OUTSIDE RECORDS SUMMARY | 2017-01-28 14:17 | External Medical Summary ---
:1935 Author Organization [employer] Care Team Providers Name Role Phone Angelina Shipman Provider Role Unavailable Allergies, Adverse Reactions, Alerts Substance Reaction Event Type Pneumococcal Vac Polyvalent Info Not Available Drug Allergy Lisinopril Info Not Available Drug Allergy Indomethacin Info Not Available Drug Allergy Problems Problem Type Condition Code Onset Dates Condition Status Assessment HTN (hypertension) I10 Active Problem Diabetes E11.9 Active Assessment CAD (coronary artery disease) I25.10 Active Problem CAD (coronary artery disease) I25.10 Active Problem H/O angioplasty Z98.[address] elevation myocardial infarction I21.19 Active (STEMI) of inferior wall Problem HTN (hypertension) I10 Active Problem Dyslipidemia E78.5 Active Problem 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 Problem Systolic CHF 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 Active Assessment 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 Assessment Systolic CHF I50.20 Active Assessment Dyslipidemia E78.5 Active Medications Medication Code Code Instructions Start End Date Status Dosage System Date Clonazepam NDC 12860-54 1 MG Orally Once 1 tablet at 33-01 a day bedtime Plavix NDC 32768-42 75 MG Orally 1 tablet 03-99 Once a day Tamsulosin HCl NDC 56324-26 0.4 MG Orally 1 capsule 38-01 Once a day Nexium NDC 28830-59 40 MG Orally 1 capsule 40-31 Once a day Lisinopril NDC 46719-64 2.5 MG Orally 1 tablet at 65-01 Once a day bedtime Furosemide NDC 30601-40 40 MG Orally 1 tablet 99-25 Once a day Venlafaxine HCl NDC 80778-05 150 MG Orally 1 capsule ER 86-05 Once a day with food Lantus NDC 80148-15 100 UNIT/ML not defined 20-33 Subcutaneous Potassium NDC 62109-74 10 MEQ Orally 2 tablet Chloride ER 43-00 Once a day with food Lovastatin NDC 17790-06 20 MG Orally 1 tablet 76-06 Once a day with a meal Oxycodone HCl NDC 76944-40 5 MG Orally 1 tablet as 76-11 every 6 hrs needed Nitrostat [facility] 33342-18 0.4 MG not defined 18-13 Sublingual prn Aspirin [facility] 88536-38 81 MG Orally 1 tablet 74-68 Once a day Allopurinol [facility] 15641-12 300 MG Orally 1 tablet 81-01 Once a day Carvedilol [facility] 37582-18 12.5 MG Orally 1/2 tablet 95-01 Twice a day Procedures Procedure Coding System Code Date Office Visit, Est Pt., Level 4 CPT-4 93775 Oct 30, 2015 Vital Signs Date/Time: Oct 30, 2015 BMI 44.13 Index Weight 226 lbs Height 5'5 in Cardiac Monitoring Heart Rate 105 /min Oximetry 96 % Blood Pressure Diastolic 58 mm Hg Blood Pressure Systolic 100 mm Hg Results No Known Results Summary Purpose [employer] Submission
--- OUTSIDE RECORDS SUMMARY | 2017-01-28 14:17 | External Medical Summary | Referral Summary ---
:1935 Author Organization [facility] Address [address] [place] [address] Care Team Providers Name Role Phone Hussain Hsu Primary Care Physician Encounter [facility] [id number] Date(s): 12/11/15 - 12/11/15 [facility] [address] [place] [address]- [place] Discharge Diagnosis: [facility] (current) use of anticoagulants Discharge Diagnosis: Epistaxis Discharge Diagnosis: Chronic obstructive pulmonary disease, unspecified Discharge Diagnosis: Atherosclerotic heart disease of [place] coronary artery without angina pectoris Discharge Disposition: 01-Home or Self Care Attending [...] 300 mg, Daily Start Date: 12/08/15 Status: Orderedcarvedilol 12.5 mg, Oral, BID, half a tab twice a day Start Date: 12/08/15 Status: OrderedclonazePAM 1 mg, Oral, Daily, 1tab at 8pm Start Date: 12/08/15 Status: Orderedfurosemide 40 mg, [...] Procedures Procedure Date Related Diagnosis Body Site Nasal/sinus endoscopy, surgical; with control of 12/11/15 nasal hemorrhage Bypass Cataracts gall bladder Heart attack Left elbow Left knee Nosebleed Oral1 Stent2 1teeth [id number] Social History Social History Type Response Smoking Status Former smoker; Type: Cigarettes Assessment and Plan Extracted from: Title: Office Visit Note Author: Rishabh Mcarthur MD Date: 12/11/15 Assessment/Plan 1.Epistaxis This appears to be under good control. He will use bacitracin lubricating ointment in the anterior sides of nasal septum3 times daily for the next 2 weeks and on theongoing basi s thereafter as needed to keep nasal mucosa lubricated. 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 Ordered: Nasal/Sinus Endoscopy, Surgical; With Control Of Nasal Hemorrhage 67911 Office Visit Level 4 Est 29338 3.Atherosclerotic heart disease of [place] coronary artery without angina pectoris He feels everything is stable. Ordered: Nasal/Sinus Endoscopy, Surgical; With Control Of Nasal Hemorrhage 24696 Office Visit Level 4 Est 55345 4.Chronic obstructive pulmonary disease, unspecified He feels this remains stable. Ordered: Nasal/Sinus Endoscopy, Surgical; With Control Of Nasal Hemorrhage 52297 Office Visit Level 4 Est 53735
--- OUTSIDE RECORDS SUMMARY | 2017-01-28 14:17 | External Medical Summary ---
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
--- OUTSIDE RECORDS SUMMARY | 2017-01-28 14:17 | External Medical Summary | Continuity of Care Document ---
:1935 Author Organization [facility] Care Team Providers Name Role Phone Hussain Hsu MD Primary Care Physician Unavailable Insurance Providers Payer Name Policy Number Subscriber Name Relationship Medicare [id number] NIESHA DAHL PATIENT/SELF [facility] [id number] NIESHA DAHL PATIENT/SELF Advance Directives Directive Response Recorded Date/Time Advance Directive Information: INSTRUCTED TO BRING AD 02/03/16 1:48pm Chief Complaint and Reason for Visit Reason for Visit FALL Problems Active Medical Problems Problem Onset Date Recorded Date Status Altered mental status Unknown 04/30/15 Active STEMI (ST elevation myocardial infarction) Unknown 09/30/15 Active Generalized weakness Unknown 09/30/15 Active Dementia Unknown 09/30/15 Active Other and unspecified hyperlipidemia Unknown 10/02/15 Active Unspecified essential hypertension Unknown 10/02/15 Active long-term (current) use of anticoagulants Unknown 10/02/15 Active Atrial fibrillation Unknown 10/02/15 Active Dysthymic disorder Unknown 10/02/15 Active Other chronic pain Unknown 10/02/15 Active Type 2 diabetes mellitus, uncontrolled Unknown 10/02/15 Active Obesity, unspecified Unknown 10/02/15 Active Alzheimers disease Unknown 10/02/15 Active Hypoxia Unknown 02/03/16 Active Rib fractures Unknown 02/03/16 Active Medications Current Home Medications Medication Dose Units Route Directions Days/Qty Instructions Start Date Allopurinol 300 MG BY MOUTH DAILY 30 (Zyloprim) 300 MG TABLET Aspirin (Adult 81 MG BY MOUTH DAILY Low Dose Aspirin EC) 81 MG TABLET Carvedilol* 6.25 MG BY MOUTH TWICE DAILY 60 (Coreg*) 6.25 MG WITH MEALS UD.TAB Clonazepam 1 MG BY MOUTH BEDTIME [...] your physician or his/ her designee call [facility] switchboard at [phone]. At [facility] we strive to provide excellent care to all patients, every visit. We appreciate any feedback from those we serve to make sure that we are meeting our goal. After dismissal, you may receive a phone call from [employer] to ask about your overall experience. We [...] Call Dietitian for questions at , Extension [phone]. (Teach back method utilized to ensure patient understanding of instructions.) (Patient has received & understands dismissal instructions.) Plan of Care Discharge Date 02/06/16 Disposition [id number] - HOME Instructions/Education Provided DI for Hypoxia Forms Provided DISCHARGE INSTRUCTIONS Prescriptions See Medications Section Care Plan and Goals See Discharge Instructions section Functional Status Query Response Date Recorded Mobility: Staff x 2 February 06, 2016 9:27am Oral Care: Self with Help February 06, 2016 1:22pm Allergies, Adverse Reactions, Alerts Allergen Type Severity Reaction Status Last Updated DIAZEPAM AdvReac Unknown MAKES PATIENT Active 10/04/15 "LOOPY" INDOMETHACIN Allergy Unknown Active 02/11/08 HYDROMORPHONE Allergy Unknown Active 10/02/15 PNEUMOCOCCAL VACCINE Allergy Severe SWELLING Active 10/02/15 Immunizations Name Date Given Type *Flu Shot: Historical *Tetanus Shot: Up To Date Historical *MMR: Up To Date Historical *T Dap: 08/22/2014 Historical Vital Signs Vital Reading Collection Date/Time Result Blood Pressure 02/06/16 9:44am 113/65 Blood Pressure Source 02/06/16 9:40am Brachial Patient Temperature 02/06/16 9:44am 98.1 Temperature Source 02/06/16 9:40am Oral Respiratory Rate 02/06/16 9:44am 20 Pulse Rate 02/06/16 9:44am 87 Pulse Location 02/06/16 9:40am Monitor Bedside Pulse Oximetry 02/06/16 9:44am 97 Height 02/05/16 11:10am 167.64 cm Height 02/05/16 11:10am 5 ft 6 in Weight 02/05/16 11:10am 102.512 kg Weight 02/05/16 11:10am 226 lb 0 oz Body Mass Index 02/05/16 11:10am 36.[address] [address] ED PHYSICIAN DOCUMENTATION Patient Name: NIESHA DAHL : 31 Unit #: [id number] Patient's Service Date: 02/03/16 ED Physician: Esa Gaspar MD Primary Physician: Hussain Hsu MD History of Present Illness General Chief Complaint Upper Resp. Complaints Stated Complaint FALL Time Seen by Provider 1026 Source patient, family Exam Limitations clinical condition History of Present Illness Initial Comments Pt CO cough and congestion Location generalized, chest Context present at rest Quality throbbing, sharp Severity moderate Allergies Coded Allergies: PNEUMOCOCCAL VACCINE (Severe, SWELLING 10/02/15) Converted from Generic Allergy: Pneumococcal Vaccine HYDROMORPHONE (10/02/15) INDOMETHACIN (02/11/08) Converted from Generic Allergy: Indomethacin 10/05- CHEST DISCOMFORT AND SOB AFTER 1- 50 MG PO DOSE 8- CHEST DISCOMFORT AND SOB AFTER 1- 50 [...] XR) 150 MG BY MOUTH DAILY #30 Hydrocodone/Acetaminophen (Hydrocodone/Apap 5/325) 1 TAB BY MOUTH Q4H PRN PRN PAIN #15 Ciprofloxacin* (Cipro*) 500 MG BY MOUTH Q12H #14 Carvedilol* (Coreg*) 6.25 MG BY MOUTH BID WM #60 Insulin Glargine 100 Units/Ml (Lantus) 25 UNITS SUBCUTANEO BID Allopurinol (Zyloprim) 300 MG BY MOUTH DAILY #30 TAB Clonazepam (Klonopin) 1 MG BY MOUTH BEDTIME #60 TAB Esomeprazole Magnesium (Nexium) 40 MG BY MOUTH DAILY Aspirin (Adult Low Dose Aspirin EC) 81 MG BY MOUTH DAILY Lovastatin (Mevacor) 20 MG BY MOUTH BEDTIME Oxycodone 5 MG W/Actm 325 MG (Percocet 5/325) 1-2 TAB BY MOUTH Q4H PRN PRN PAIN Tamsulosin (Flomax SR) 0.4 MG BY MOUTH DAILY Nitroglycerin Sl (Nitrostat) 0.4 MG SUBLINGUAL PRN Q 5 MIN X 3 SL PRN CHEST PAIN Review of Systems Review of Systems Was ROS Completed? Yes Constitutional Denies fever, Denies chills, Denies diaphoresis Respiratory Denies cough, Denies short of breath, Denies wheezing Cardiovascular Denies chest pain, Denies palpitations, Denies syncope Gastrointestinal Denies abdominal pain, Denies constipation, Denies diarrhea Musculoskeletal Denies neck pain, Denies back pain, Denies joint pain Neurological Denies headache, Denies numbness, Denies paresthesia, Denies tonic clonic movement Psychiatric Denies anxiety, Denies depression, Denies flight of ideas All Other Systems Reviewed and Negative Past Medical History Past Medical History Medical History CHF, COPD, diabetes, GERD, hypertension, CAD gout Surgical History cardiac stent, coronary bypass surgery, cholecystectomy, left knee surgery left thumb surgery dental surgery Social History Smoker Former smoker Physical Exam Physical Exam Exam Limitations no limitations Nursing Assessment Reviewed Yes Initial Vital Signs Vital Signs Result Date Time Pulse Ox 92 02/02 1016 B/P 119/64 02/02 1016 Temp 97.8 02/02 1016 Pulse 95 02/02 1016 Resp 20 02/02 1016 O2 Delivery Nasal Cannula 02/02 1102 O2 Flow Rate 3 02/02 1102 Constitutional well developed, well nourished, no apparent distress, good hygiene Ear, Nose, Throat hearing grossly normal, normal TM (R), normal TM (L) Respiratory no respiratory distress, normal breath sounds, no accessory muscle use Cardiovascular regular rate/rhythm, no murmur, no edema Gastrointestinal soft, non tender, normal bowel sounds Musculoskeletal gait WNL, normal strength, no vertebral tenderness Results Results Labs Laboratory Tests 02/02 1035 1035 1035 1035 Chemistry Sodium (135 - 150 mmol/L) 134 L Potassium (3.4 - 5.2 mmol/L) 4.5 Chloride (100 - 112 mmol/L) 98 L Carbon Dioxide (21 - 33 meq/L) 30 Anion Gap (8 - 16 mmol/L) 6 L BUN (5 - 21 mg/dl) 22 H Creatinine (0.60 - 1.30 mg/dl) 1.20 GFR Calculation (> 60 mL/Min) > 60 Glucose (70 - 99 mg/dl) 208 H Lactic Acid (0.4 - 2.0 mmol/L) 1.4 Calcium (8.6 - 10.5 mg/dl) 8.7 Total Bilirubin (0.0 - 1.2 mg/dl) 0.6 AST (6 - 37 U/L) 25 ALT (12 - 78 U/L) 17 Alkaline Phosphatase (46 - 116 U/L) 100 B-Natriuretic Peptide (<100 pg/ml) 74.3 Total Protein (6.4 - 8.2 g/dl) 7.1 Albumin (3.3 - 4.5 g/dl) 2.8 L Albumin/Globulin Ratio (0.7 - 2.0) 0.7 Procalcitonin (0.0 - 0.10 ng/ml) < 0.05 L Hematology WBC (4.5 - 11.0 10^3/uL) 8.0 RBC (4.70 - 6.00 10^6/uL) 4.14 L Hgb (13.5 - 17.5 g/dl) 11.6 L Hct (41 - 53 %) 36.5 L MCV (80 - 100 fL) 88.2 MCH (25.0 - 34.0 pg) 28.1 MCHC (31.0 - 36.0 g/dL) 31.9 RDW (11.0 - 15.0 %) 16.4 H Plt Count (130 - 400 10^3/uL) 223 MPV (7.0 - 11.0 fL) 9.3 Neutrophils % (43.0 - 72.0 %) 64.2 Lymphocytes % (15.0 - 45.0 %) 21.3 Monocytes % (1.0 - 12.0 %) 9.1 Eosinophils % (0.0 - 6.0 %) 4.4 Basophils % (0.0 - 2.0 %) 1.0 Neutrophils # (1.0 - 8.0 10^3/uL) 5.2 Lymphocytes # (1.0 - 3.0 10^3/uL) 1.7 Monocytes # (0.0 - 1.0 10^3/uL) 0.7 Eosinophils # (0.0 - 0.4 10^3/uL) 0.4 Basophils # (0.0 - 0.2 10^3/uL) 0.1 02/02 1108 Blood Gas Puncture Site L Radial pH (7.350 - 7.450) 7.420 pCO2 (35.0 - 45.0 mmHg) 45.0 pO2 (80 - 100 mmHg) 68.0 L HCO3 (22.0 - 26.0 mEq/L) 29.2 H Total CO2 (21 - 33 mEq/L) 30.6 Base Excess (-2.0 - 2.0 mEq/L) 4.1 H Aguilar Test (Positive) Positive Hemoglobin (13.5 - 17.5 gm/dL) 11.1 L Oxyhemoglobin % (88 - 100 %) 90 Carboxyhemoglobin (0.0 - 1.5 %) 1.9 H Methemoglobin (0.4 - 1.5 %) 0.6 O2 Delivery Device Nasal Cannula O2 Liters/Min 2.0 Radiology rib fractures Progress Note Medications Medications PRN Medications Given in ED Sig/Leann Start time Last Medication Dose Route Stop Time Status Admin/ Admin Dose Albuterol Sulfate 2.5 MG NEEDED PRN 02/02 1026 AC (ALBUTEROL 2.5 MG/ IH 02/03 1027 1040 3ML NEB SOLN) 2.[address] Ayers about possible admission and scheduling for home O2 (Esa aGspar MD) Decision to Admit Date of decision to admit 02/03/16 Time of decision to admit 1142 Departure Departure Clinical Impression Primary Impression: Hypoxia Secondary Impressions: Rib fractures Qualifiers: Encounter type: subsequent encounter Rib fracture type: multiple ribs Fracture type: closed Laterality: right Fracture healing: with routine healing Qualified Code: S22.41XD - Multiple fractures of ribs, right side, subsequent encounter for fracture with routine healing Time of Disposition 1141 Disposition HOME/SELF CARE Condition Stable Tobacco Education Tobacco Non-User Referrals Hussain Hsu MD (PCP/Family) Esa Gaspar MD Electronically Signed 02/03/16 1143 Procedures No Known History of Procedures. Encounters Encounter Location Arrival/Admit Date Discharge/Depart Date Attending Provider Discharged Jamari 02/03/16 10:14am 12/06/16 1:52pm Hussain Hsu [facility]patient [facility] MD Health Encounter Diagnosis Onset Date Altered mental status STEMI (ST elevation myocardial infarction) Generalized weakness Dementia Other and unspecified hyperlipidemia Unspecified essential hypertension long-term (current) use of anticoagulants Atrial fibrillation Dysthymic disorder Other chronic pain Type 2 diabetes mellitus, uncontrolled Obesity, unspecified Alzheimers disease Hypoxia Rib fractures
--- OUTSIDE RECORDS SUMMARY | 2017-01-28 14:17 | External Medical Summary | Encounter Summary ---
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
[2017-01-28] MEDS ORDERED: LEVOFLOXACIN PB 750 MG/150 ML BAG IV ONE (14:51)
[2017-01-28] MEDS: NS 1,000 ML IV SCH (15:16)
[2017-01-28] MEDS: SALINE FLUSH 10ml SYRINGE IVF PRN (15:16)
[2017-01-28 16:56] VITALS: BMI 35.5
--- NOTE | 2017-01-28 18:39 | History & Physical Report ---
History of Present Illness Date: 01/28/17 Chief complaint: cough, UTI, behavioral changes HPI: Patient is an 81-year-old male who originally presented to the emergency department for clearance to the [facility]. He had a stroke on December 05, and after a short hospital stay, was transferred to rehabilitation unit on December 08. He was transferred here due to increasing behavioral issues. Apparently, he became combative and aggressive to staff, throwing chairs and swinging equipment around the room. Prior to his stroke he was living with his daughter and grandson at their home in [place]. Cher reports patient has dementia, but prior to his stroke, had no major behavioral issues other than "having a bad day" now and then. Grandstephanie notes patient has had a progressive cough starting yesterday. Patient has a history of frequent pneumonia over the last few years. Patient complains of some shortness of air and some chest pain associated with the cough. He has had no urinary symptoms. Bowel movements are usually regular. Cher also notes the patient developed a rash to the left side of his face on 01/26/17. Patient denies itching and states it hurts at times. In the ER, urinalysis showed 2+ leuks, 3+ bacteria and a large number of white blood cells. He was given a dose of Levaquin and for diagnosis of UTI. White blood cell count was 7.0, hemoglobin 12.0, platelets 244. Given that it was thought his encephalopathy could be related to UTI, patient was admitted to the medical unit as opposed to [facility]. Home medications reviewed from rehabilitation facility MAR: Aspirin 81 mg daily Allopurinol 300 mg daily Acetaminophen 650 mg 3 times a day routinely Clopidogrel 75 mg daily Mucinex D twice a day 3 days (start date 01/26/17) Lisinopril 2.5 mg daily at bedtime Lantus 22 units twice a day Venlafaxine ER 150 mg daily at bedtime Ranitidine 150 mg twice a day Potassium chloride 20 mEq daily Carvedilol 6.25 mg twice a day Clonazepam 1 mg daily at bedtime Furosemide 40 mg daily Oxycodone 5 mg daily at bedtime Lovastatin 20 mg daily at bedtime Tamsulosin 0.4 mg daily Olanzapine 5 mg daily at bedtime Review of Systems All systems PM: 10-point ROS was reviewed, no additional remarkable complaints except - Cardiovascular Cardiovascular: Present: chest pain - Respiratory Respiratory: Present: cough, dyspnea - Integumentary/Breasts Integumentary: Present: rash (L side of face) - Neurological Neurological: Present: weakness (R sided from recent CVA) - Psychiatric Psychiatric: Present: behavioral changes - Hematologic/Lymphatic Hematologic/Lymphatic: Present: easy bruising PFSH Medical History Cerebrovascular accident-residual right-sided weakness Dementia Congestive heart failure COPD Diabetes mellitus type 2, insulin requiring Hypertension Hyperlipidemia Coronary artery disease GERD BPH Osteoarthritis Hyperuricemia/gouty arthritis Depression/anxiety Surgical History: Left elbow replacement due to shatter injury, traumatic left thumb amputation, left knee replacement, CABG 3 Family History: Family history - noncontributory - Social History Smoking status: Former smoker Substance use type: does not use Alcohol intake frequency: does not drink Housing: house Household members: family (daughter, grandson and grandson's girlfriend) Current occupational status: retired Social history: PCP - Dr Hussain Hsu ([phone]) Patient lived with daughter and grandson in [place] prior to Dec 05 when he had a stroke. Has been in [facility] in [place] (12/08/16 - ) Medications Home Medications Medication Instructions Recorded Confirmed Type Acetaminophen 650 mg PO TID 01/28/17 01/28/17 History Allopurinol [Zyloprim] 300 mg PO DAILY 01/28/17 01/28/17 History Aspirin *EC* [Ecotrin] 81 mg PO DAILY 01/28/17 01/28/17 History Carvedilol [Carvedilol] 6.25 mg PO BID 01/28/17 01/28/17 History ClonazePAM [Klonopin] 1 mg PO HS 01/28/17 01/28/17 History Clopidogrel Bisulfate [Clopidogrel] 75 mg PO DAILY 01/28/17 01/28/17 History Furosemide [Lasix] 40 mg PO DAILY 01/28/17 01/28/17 History Guaifenesin/P-Ephed 600/60 Tab 1 tab PO Q12HR 01/28/17 01/28/17 History [Mucinex D] Insulin Glargine [Lantus] 22 units SQ BID 01/28/17 01/28/17 History Lisinopril [Prinivil] 2.5 mg PO HS 01/28/17 01/28/17 History Lovastatin [Mevacor] 20 mg PO HS 01/28/17 01/28/17 History OLANZapine [Olanzapine] 5 mg PO DAILY 01/28/17 01/28/17 History Oxycodone HCl [Oxaydo] 5 mg PO HS 01/28/17 01/28/17 History Potassium Chloride [K-Tab ER] 20 meq PO DAILY 01/28/17 01/28/17 History Ranitidine [Zantac] 150 mg PO BID 01/28/17 01/28/17 History Tamsulosin [Flomax] 0.4 mg PO DAILY 01/28/17 01/28/17 History Venlafaxine HCl [Venlafaxine HCl 150 mg PO HS 01/28/17 01/28/17 History ER] Allergies Allergy/AdvReac Type Severity Reaction Status Date / Time pneumococcal vaccine Allergy Severe Swelling Verified 01/28/17 17:12 hydromorphone [From Dilaudid] Allergy Intermediate Hallucinati Verified 17:13 ng diazepam Allergy Unknown Verified 01/28/17 17:19 indomethacin Allergy Unknown Verified 01/28/17 17:19 Exam Vital Signs: Temperature 95.6 F L 01/28/17 16:56 Pulse Rate 93 01/28/17 16:56 Respiratory Rate 18 01/28/17 16:56 Blood Pressure 117/76 01/28/17 16:56 Pulse Oximetry 99 01/28/17 16:56 Height/Weight/BMI: Height 1.65 m Weight 96.8 kg Body Mass Index 35.5 - Constitutional Present: no acute distress, well nourished, well developed - Routine HEENT Exam Head: Present: normocephalic, atraumatic Eye: Present: EOMI, PERRL ENT: Present: mucous membranes moist, oropharynx clear - Routine Neck Exam Present: supple. Absent: lymphadenopathy, thyromegaly - Routine Respiratory Exam Present: crackles (questionable crackles left lower lobe). Absent: wheezes - Routine Cardiovascular Exam Present: RRR, S1, S2. Absent: murmur - Routine Abdominal Exam Present: soft, normoactive bowel sounds, non distended. Absent: tenderness - Routine Extremities Exam Present: edema (1+ pedal edema right greater than left), normal capillary refill , amputation (left thumb) - Routine Skin Exam Present: dry, warm, rash (erythematous, papular rash left side of face extending behind the left ear), ecchymosis (left elbow, right hand) - Routine Neurological Exam Present: alert, moving all extremities, normal speech. Absent: altered mental status, tremors Equal air conditioning supervisor strength. Slight weakness in right upper extremity compared to left. Right leg strength 3/5, left leg 4/5. Patient oriented to self and grandson and his girlfriend. He knows we are in [place], but states he was living in [place]. He grew up in [place] but was living in [place]. He reports he has been brought to the hospital for his cough. - Routine Psychiatric Exam Present: normal affect, cooperative Results - Labs CBC & Chem 7: 01/28/17 14:10 01/28/17 14:10 Labs: Laboratory Tests 01/28/17 14:10 AST 14 L ALT 23 TSH 2.88 Laboratory Tests 01/28/17 13:34 Urine Color Yellow Urine Clarity Sl cloudy Urine pH 7.0 Ur Specific Riddle 1.010 L Urine Protein Negative Urine Glucose (UA) Negative Urine Ketones Negative Urine Occult Blood Trace-intact Urine Nitrate Negative Urine Bilirubin Negative Urine Urobilinogen 0.2 Ur Leukocyte Esterase 2+ A Urine RBC 1-3 Urine WBC 50-200 H Urine Bacteria 3+ H Outside lab 12/13/16 Sodium 133, potassium 3.9, glucose 137, BUN 24, creatinine 1.11 A1c 7.2 WBC 7.1, hemoglobin 12.8, hematocrit 39.7, platelets 218 - Imaging and Cardiology MRI - head Additional comments: MRI brain from 12/17 shows small acute infarct posterior left frontal lobe and atrophy consistent with small vessel ischemic changes. CT scan - head Additional comments: CT head dated 12/17 and shows moderate cerebral volume loss and extensive small vessel ischemia Chest x-ray Additional comments: Chest x-ray from outside facility shows mild bibasilar atelectasis and mild cardiomegaly Assessment and Plan (1) Dementia with behavioral disturbance Current visit: Yes Status: Acute (2) Rhinovirus Current visit: Yes Status: Acute Assessment and Plan: Admission diagnosis Dementia with behavioral disturbance Cough - + rhinovirus UTI - patient w/o symptoms, more likely to be asymptomatic bacteriuria Facial rash - suspect herpes zoster Chronic diagnosis Cerebrovascular accident-residual right-sided weakness Dementia Congestive heart failure COPD Diabetes mellitus type 2, insulin requiring Hypertension Hyperlipidemia Coronary artery disease GERD BPH Osteoarthritis Hyperuricemia/gouty arthritis Depression/anxiety Plan Admit patient to inpatient status under the care of the hospitalist service, Dr. Metzger attending. Length of stay expected to exceed 2 overnights given new onset of cough, behavioral changes and underlying dementia and other co- morbidities. Resp panel + for rhinovirus. CXR pending at time of documentation. Rocephin 1 gm q 24 hrs IV starting tomorrow am for coverage of pulmonary and urinary pathogens. Levaquin 750 given in ER today. Consider Budesonide if he starts wheezing. Duoneb, Acapella and IS for rhinovirus. Contact precautions. Continue all home meds with exception of recently started Mucinex D. Start plain Mucinex 600BID x 1 wk for expectorant/mucolytic. Urine sent for culture. Valacyclovir x 7 days for herpes zoster. Accuchecks AC and HS and PRN. Home insulin and SSI PRN. OT/PT/ST to assess and formulate treatment plan. Patient is a DNR. Dr Hussain Hsu to resume care on patient dismissal. Case discussed with Dr. Metzger. 01/28/2017-I reviewed this chart, the patient history, and the COAL CRUSHER OPERATOR's/PA's documented findings as above. We discussed and formulated the assessment and plan as above with the additions below.-Dr. Metzger Patient is seen this evening in his room. Family is not present. The patient is pleasant and denies any complaints. He denies any shortness of breath. He does admit to some cough recently. He denies any chest pain or abdominal pain. He denies any nausea or vomiting. He states he is urinating well. He does have a rash on the left side of his face mostly along the hairline. Family stated it started 2 days ago but the patient states that it's been there for several months. The patient states that his face is not painful. On exam he is alert and in no acute distress. He is obese. HEENT reveals sclerae to be anicteric and pupils are equal. Oropharynx is moist. He does have some erythema along the hairline starting from his forehead and down into the sideburn area. He denies any pain. There are no obvious blisters or pustules. Chest is clear to auscultation. Cardiovascular reveals a regular rate and rhythm. Abdomen is soft and nontender. Extremities are free of edema. Chest x-ray on my read does not show any infiltrates. Await radiology interpretation. Regarding dementia with encephalopathy, will continue with his current antipsychotic medications. Will treat UTI with Rocephin. He did get 1 dose of Levaquin in the emergency room. We'll start Valtrex for possible shingles and monitor closely. We'll provide a safe environment. Possible transfer to [facility] unit soon. DVT Prophylaxis: Lovenox Resuscitation Status: Do Not Resuscitate Hospital Course Summary Disclaimer: The visit summary below is not to be considered part of the above Progress Note. Hospital Course: Admission diagnosis Dementia with behavioral disturbance Cough - + rhinovirus UTI - patient w/o urinary symptoms, more likely to be asymptomatic bacteriuria Chronic diagnosis Cerebrovascular accident-residual right-sided weakness Dementia Congestive heart failure COPD Diabetes mellitus type 2, insulin requiring Hypertension Hyperlipidemia Coronary artery disease GERD BPH Osteoarthritis Hyperuricemia/gouty arthritis Depression/anxiety 01/28/17 - Hospital admission Admit patient to inpatient status under the care of the hospitalist service, Dr. Metzger attending. Length of stay expected to exceed 2 overnights given new onset of cough, behavioral changes and underlying dementia and other co- morbidities. Resp panel + for rhinovirus. CXR pending at time of documentation. Rocephin 1 gm q 24 hrs IV starting tomorrow am for coverage of pulmonary and urinary pathogens. Levaquin 750 given in ER today. Consider Budesonide if he starts wheezing. Duoneb, Acapella and IS for rhinovirus. Contact precautions. Continue all home meds with exception of recently started Mucinex D. Start plain Mucinex 600BID x 1 wk for expectorant/mucolytic. Urine sent for culture. Accuchecks AC and HS and PRN. Home insulin and SSI PRN. OT/PT/ST to assess and formulate treatment plan. Patient is a DNR. Dr Hussain Hsu to resume care on patient dismissal. Case discussed with Dr. Metzger. Patient started on Valtrex for suspected herpes zoster
[2017-01-28] MEDS ORDERED: CARVEDILOL 6.25 MG TABLET PO SCH (21:00)
[2017-01-28] MEDS: Oxycodone *IR* 5 MG TABLET PO SCH (21:00)
[2017-01-28] MEDS ORDERED: HALOPERIDOL 5 MG/ML INJECTION IM ONE (23:27)
[2017-01-28] MEDS: RANITIDINE 150 MG TABLET PO SCH (23:36)
[2017-01-28] MEDS: LOVASTATIN 20 MG TABLET PO SCH (23:36)
[2017-01-28] MEDS: LISINOPRIL 2.5 MG TABLET PO SCH (23:36)
[2017-01-28] MEDS: ClonazePAM 1 MG TABLET PO SCH (23:36)
[2017-01-28] MEDS: ACETAMINOPHEN 325 MG TABLET PO SCH (23:36)
[2017-01-28] MEDS: OLANZapine 5 MG TABLET PO SCH (23:36)
[2017-01-28] MEDS: VALACYCLOVIR 500 MG TABLET PO SCH (23:36)
[2017-01-28] MEDS: GUAIFENESIN LA 600 MG TABLET PO SCH (23:37)
[2017-01-28] MEDS: INSULIN GLARGINE 100unit/ml INJECTION SQ SCH (23:43)
[2017-01-29] MEDS: NS 1,000 ML IV SCH ×2 (03:38→14:04)
[2017-01-29] MEDS: ALBUTEROL/IPRATROPIUM 2.5mg-0.5mg/3ml NEB AEROSOL SCH ×4 (07:37→21:23)
--- NOTE | 2017-01-29 08:53 | XRay Report ---
INDICATION: cough PROCEDURE: CHEST 2-VIEWS UPRIGHT (PA & LAT) Encounter: Initial COMPARISON: None FINDINGS: Fibrosis or scarring in the lung bases. Lungs are otherwise clear. There is no pleural effusion or pneumothorax. Poststernotomy changes are present. The heart size is at the upper limits of normal. The mediastinal contours and pulmonary vascularity are within normal limits. IMPRESSION: No pneumonia. .
[2017-01-29] MEDS: CEFTRIAXONE 1 G in NS 100 ML IV SCH (09:29)
[2017-01-29] MEDS: INSULIN GLARGINE 100unit/ml INJECTION SQ SCH ×2 (09:36→20:29)
[2017-01-29] MEDS: GUAIFENESIN LA 600 MG TABLET PO SCH ×2 (09:37→20:23)
[2017-01-29] MEDS: VALACYCLOVIR 500 MG TABLET PO SCH ×3 (09:37→20:22)
[2017-01-29] MEDS: FUROSEMIDE 40 MG TABLET PO SCH (09:37)
[2017-01-29] MEDS: RANITIDINE 150 MG TABLET PO SCH ×2 (09:37→20:24)
[2017-01-29] MEDS: TAMSULOSIN 0.4 MG CAPSULE PO SCH (09:37)
[2017-01-29] MEDS: ALLOPURINOL 300 MG TABLET PO SCH (09:37)
[2017-01-29] MEDS: ASPIRIN *EC* 81 MG TABLET PO SCH (09:37)
[2017-01-29] MEDS: ACETAMINOPHEN 325 MG TABLET PO SCH ×3 (09:37→20:25)
[2017-01-29] MEDS: CARVEDILOL 6.25 MG TABLET PO SCH ×2 (09:37→18:10)
[2017-01-29] MEDS: CLOPIDOGREL 75 MG TABLET PO SCH (09:37)
[2017-01-29] MEDS: ENOXAPARIN 40 MG/0.4 ML INJECTION SQ SCH (09:38)
[2017-01-29] MEDS: INSULIN ASPART 100unit/ml INJECTION SQ PRN ×2 (15:28→23:43)
--- NOTE | 2017-01-29 15:43 | Progress Note ---
<Rani Berrios - Last Filed: 01/29/17 15:39> - Date 01/29/17 Subjective: Patient is seen in follow-up of his rhinovirus, UTI, and behavioral changes. Overnight patient became agitated and refused to take his medications. Following a bowel movement, it took 4 staff members to turn him and clean him up as his behaviors escalated to the point of hitting and kicking staff members. They were able to calm him down without using the ordered Haldol. Today he has been pleasant for staff. He has slept most of the day, but has been up to eat breakfast and lunch. He states he feels good. He is still coughing some. He has had some loose stools and GI panel was performed and was negative. In talking with the family, he does have irritable bowel syndrome. He has had no fever. Objective Vital signs: Temperature 96.8 F 01/29/17 00:00 Pulse Rate 80 01/29/17 08:00 Respiratory Rate 16 01/29/17 12:07 Blood Pressure 129/75 01/29/17 08:00 Pulse Oximetry 92 01/29/17 12:07 Height/Weight/BMI: Height 1.65 m Weight 98.5 kg Body Mass Index 35.5 - Constitutional Present: no acute distress, well nourished, well developed - Routine HEENT Exam Head: Present: normocephalic, atraumatic - Routine Respiratory Exam Present: decreased breath sounds, CTA bilaterally. Absent: wheezes - Routine Cardiovascular Exam Present: RRR. Absent: murmur - Routine Abdominal Exam Present: soft, normoactive bowel sounds, non distended. Absent: tenderness - Routine Extremities Exam Present: edema (trace left, 1+ right), normal capillary refill - Routine Skin Exam Present: dry, warm - Routine Neurological Exam Present: alert, normal speech - Routine Lymphatic Exam Lymphatic: Absent: adenopathy - Routine Psychiatric Exam Present: normal affect, cooperative Results - Labs CBC & Chem 7: 01/29/17 04:41 01/29/17 04:41 Labs: Stool panel negative Assessment and Plan (1) Dementia with behavioral disturbance Current visit: Yes Status: Acute (2) Rhinovirus Current visit: Yes Status: Acute Assessment and Plan: Admission diagnosis Dementia with behavioral disturbance Cough - + rhinovirus UTI - patient w/o symptoms, more likely to be asymptomatic bacteriuria Facial rash - suspect herpes zoster Chronic diagnosis Cerebrovascular accident-residual right-sided weakness Dementia Congestive heart failure COPD Diabetes mellitus type 2, 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 Continue precautions. Continue Rocephin for UTI. Urine culture has grown out Proteus mirabilis, the sensitivity is not back yet. If he continues to improve and has no significant behaviors, he should likely be able to return to his rehabilitation facility in [place] within the next few days. Hospital Course Summary Disclaimer: The visit summary below is not to be considered part of the above Progress Note. Hospital Course: Admission diagnosis Dementia with behavioral disturbance Cough - + rhinovirus UTI - patient w/o urinary symptoms, more likely to be asymptomatic bacteriuria Chronic diagnosis Cerebrovascular accident-residual right-sided weakness Dementia Congestive heart failure COPD Diabetes mellitus type 2, insulin requiring Hypertension Hyperlipidemia Coronary artery disease GERD BPH Osteoarthritis Hyperuricemia/gouty arthritis Depression/anxiety 01/28/17 - Hospital admission Admit patient to inpatient status under the care of the hospitalist service, Dr. Metzger attending. Length of stay expected to exceed 2 overnights given new onset of cough, behavioral changes and underlying dementia and other co- morbidities. Resp panel + for rhinovirus. CXR pending at time of documentation. Rocephin 1 gm q 24 hrs IV starting tomorrow am for coverage of pulmonary and urinary pathogens. Levaquin 750 given in ER today. Consider Budesonide if he starts wheezing. Duoneb, Acapella and IS for rhinovirus. Contact precautions. Continue all home meds with exception of recently started Mucinex D. Start plain Mucinex 600BID x 1 wk for expectorant/mucolytic. Urine sent for culture. Accuchecks AC and HS and PRN. Home insulin and SSI PRN. OT/PT/ST to assess and formulate treatment plan. Patient is a DNR. Dr Hussain Hsu to resume care on patient dismissal. Case discussed with Dr. Metzger. Patient started on Valtrex for suspected herpes zoster 01/29/17 GI Panel was performed due to diarrhea. This was negative. Continue DuoNeb, Acapella for his respiratory illness. Continue precautions. Continue Rocephin for UTI. Urine culture has grown out Proteus mirabilis, the sensitivity is not back yet. If he continues to improve and has no significant behaviors, he should likely be able to return to his rehabilitation facility in [place] within the next few days. <Michelle Metzger - Last Filed: 01/29/17 17:25> - Date 01/29/17 Objective Vital signs: Temperature 97.0 F 01/29/17 15:53 Pulse Rate 75 01/29/17 15:53 Respiratory Rate 16 01/29/17 16:08 Blood Pressure 147/85 H 01/29/17 15:53 Pulse Oximetry 94 01/29/17 15:53 Height/Weight/BMI: Height 1.65 m Weight 98.5 kg Body Mass Index 35.5 Results - Labs CBC & Chem 7: 01/29/17 04:41 01/29/17 04:41 Assessment and Plan (1) Dementia with behavioral disturbance Current visit: Yes Status: Acute (2) Rhinovirus Current visit: Yes Status: Acute Assessment and Plan: 01/29/2017-I reviewed this chart, the patient history, and the PURCHASING DEPARTMENT CLERK's/PA's documented findings as above. We discussed and formulated the assessment and plan as above with the additions below.-Dr. Metzger The patient was sleeping this morning when I came by to see him. He is sleeping again now this afternoon. He appears comfortable. I did call and talk with his nurse and she states that he woke up in the morning and ate all of his breakfast and ate all of his lunch. He was pleasant and appropriate today. He worked with physical therapy. She has no specific concerns. On exam the patient is sleeping. He arouses slightly but I did not try to awaken him. Chest is clear to auscultation. Cardiovascular reveals a regular rate and rhythm. Abdomen is soft and nontender. Extremities are free of edema. Lab is reviewed. Urine cultures growing Proteus. Sensitivities are pending. Continue Rocephin for urinary tract infection. Await sensitivities. Will discuss with case management, family whether they would like the patient to be evaluated for generations versus returning to his long term if encephalopathy continues to resolve with treatment of his UTI. Continue in precautions regarding rhinovirus. Hospital Course Summary Disclaimer: The visit summary below is not to be considered part of the above Progress Note.
[2017-01-29] MEDS: OLANZapine 5 MG TABLET PO SCH ×2 (19:20→20:27)
[2017-01-29] MEDS: ClonazePAM 1 MG TABLET PO SCH (20:22)
[2017-01-29] MEDS: LISINOPRIL 2.5 MG TABLET PO SCH (20:23)
[2017-01-29] MEDS: Oxycodone *IR* 5 MG TABLET PO SCH (20:24)
[2017-01-29] MEDS: LOVASTATIN 20 MG TABLET PO SCH (20:24)
[2017-01-30] MEDS: ALBUTEROL/IPRATROPIUM 2.5mg-0.5mg/3ml NEB AEROSOL SCH ×4 (07:49→19:59)
[2017-01-30] MEDS: VALACYCLOVIR 500 MG TABLET PO SCH ×3 (08:24→21:46)
[2017-01-30] MEDS: RANITIDINE 150 MG TABLET PO SCH ×2 (08:24→21:47)
[2017-01-30] MEDS: FUROSEMIDE 40 MG TABLET PO SCH (08:24)
[2017-01-30] MEDS: CLOPIDOGREL 75 MG TABLET PO SCH (08:24)
[2017-01-30] MEDS: GUAIFENESIN LA 600 MG TABLET PO SCH ×2 (08:24→21:47)
[2017-01-30] MEDS: TAMSULOSIN 0.4 MG CAPSULE PO SCH (08:24)
[2017-01-30] MEDS: ASPIRIN *EC* 81 MG TABLET PO SCH (08:24)
[2017-01-30] MEDS: CARVEDILOL 6.25 MG TABLET PO SCH ×2 (08:25→17:32)
[2017-01-30] MEDS: ACETAMINOPHEN 325 MG TABLET PO SCH ×3 (08:25→21:45)
[2017-01-30] MEDS: ALLOPURINOL 300 MG TABLET PO SCH (08:25)
[2017-01-30] MEDS: ENOXAPARIN 40 MG/0.4 ML INJECTION SQ SCH (08:26)
[2017-01-30] MEDS: INSULIN GLARGINE 100unit/ml INJECTION SQ SCH ×2 (08:26→21:48)
[2017-01-30] MEDS: CEFTRIAXONE 1 G in NS 100 ML IV SCH (08:27)
[2017-01-30] MEDS: INSULIN ASPART 100unit/ml INJECTION SQ PRN ×3 (11:15→21:47)
[2017-01-30] MEDS: HALOPERIDOL 5 MG/ML INJECTION IM PRN (11:32)
[2017-01-30] MEDS: NICOTINE 7 MG PATCH TD SCH (13:34)
--- NOTE | 2017-01-30 16:06 | Neuropsychiatric Consult ---
[facility] Date: 01/30/17 Requesting Physician: Michelle Metzger Reason for Consultation: Agitation Start Time: 07:15 Stop Time: 07:45 History of Present Illness: Patient is an 81-year-old male admitted [place] [facility] [place] to admit to [facility] for agitation from LTC facility but was found to have UTI and instead admitted to medical floor. Patient had a stroke on 12/05/16 and went to rehab 12/08 before being transferred here for agitation, aggression. Patient had established dementia prior to stroke but no other behavioral issues per family he lived with. Psychiatry was consulted in regards to medication management for agitation, combativeness which was worse overnight. Per primary treatment team: "Cher notes patient has had a progressive cough starting yesterday. Patient has a history of frequent pneumonia over the last few years. Patient complains of some shortness of air and some chest pain associated with the cough. He has had no urinary symptoms. Bowel movements are usually regular. Cher also notes the patient developed a rash to the left side of his face on 01/26/17. Patient denies itching and states it hurts at times. In the ER, urinalysis showed 2+ leuks, 3+ bacteria and a large number of white blood cells. He was given a dose of Levaquin and for diagnosis of UTI. White blood cell count was 7.0, hemoglobin 12.0, platelets 244. Given that it was thought his encephalopathy could be related to UTI, patient was admitted to the medical unit as opposed to [facility] unit." On interview, patient is mildly irritable but mostly redirectable. He is quite disorganized and confused with very limited attention span. At times he talks about hurting self and others but then has forgotten about it within 30 seconds. Conversation is illogical. He endorses feeling paranoid but this is likely not a well-formed delusion given extremely short attention span. Patient is not a reliable historian in any other manner. 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, traumatic left thumb amputation, left knee replacement, CABG 3 Family History: Not able to obtain psychiatric history of family from patient - Social History Household members: other (Rehab facility, previously lived with family) Current residence: [facility] Review of Systems ROS unobtainable: due to mental status - Psychiatric Psychiatric: Present: abnormal sleep pattern, behavioral changes, paranoia Mental Status Exam Vitals: Last Vital Signs Temp 96.1 F L 01/30/17 15:55 Pulse 98 01/30/17 15:55 Resp 16 01/30/17 15:55 BP 105/59 01/30/17 15:55 Pulse Ox 93 01/30/17 15:55 Height: 1.65 m Weight: 97 kg - Mental Status Exam Muscle Strength/Tone: Normal Dressing: Casual Grooming: Fair Attitude: Combative (intermittent) Motor Activity: Normal Eye Contact: Good Speech: Normal Volume: Normal Rhythm: Appropriate Rhythm Sensory: Alert, Confused Orientation: Disoriented to time, Disoriented to place, Disoriented to situation , Oriented to person Mood: Neutral (labile affect) Rate of Thoughts: Delayed Thought Organization: Disorganized, Confused Associations: Illogical Abstract Reasoning: Impaired, concrete Thought Content: Paranoia Perception/Psychotic: Other (Unclear, not observed responding to internal stimuli during interview) Language: Naming Impaired Fund of Knowledge: Poor fund of knowledge Memory: Poor-immediate, Poor-recent Suicidal Ideation: Fleeting (not well formed) Homicidal Ideation: Fleeting (not well formed) Insight: Impaired Judgement: Impaired Impulse Control: Poor - Laboratory Result Diagrams: 01/29/17 04:41 01/29/17 04:41 Laboratory Results - last 24 hr 01/29/17 01/30/17 01/30/17 19:42 05:55 11:07 Glucometer 151 128 200 01/30/17 15:25 Glucometer 201 Assessment and Plan (1) Delirium Problem details: due to UTI Current visit: Yes Status: Acute (2) Major neurocognitive disorder Problem details: vascular etiology, moderate Current visit: Yes Status: Acute (3) Urinary tract infection Qualifiers: Urinary tract infection type: acute cystitis Hematuria presence: with hematuria Qualified Code(s): N30.01 - Acute cystitis with hematuria Current visit: Yes Status: Acute In regards to safety, I do not believe patient has true SI or HI - however he did make some fleeting comments in his disorganization. However, recommend frequent monitoring and care taken by staff to protect themselves as he has been combative. Recommend the following med changes to minimize delirium: - Decrease clonazepam to 0.5mg PO q HS with plan to continue taper - Hold statin medication as it could be contributing to agitation at HS - Move Effexor XR to AM rather than HS, consider whether this medication is truly necessary - would need taper to prevent withdrawal - Move Zyprexa to dinnertime rather than HS to prevent owning, consider whether a different antipsychotic would be more helpful - Minimize narcotics and other anticholinergic medication Monitor mood, behavior and response to following changes - psychiatry will continue to follow and make further recommendations as needed. As delirium clears, can assess whether behavior may still warrant hospitalization at [facility]. Thank you for this consult.
--- NOTE | 2017-01-30 16:53 | Progress Note ---
- Date 01/30/17 Subjective: The patient was seen this afternoon in his room. He is very pleasant. He continues to be confused. He is sitting up in a chair watching TV. He denies any complaints other than occasional cough. He denies any pain. He states he's eating well. Objective Vital signs: Temperature 96.1 F L 01/30/17 15:55 Pulse Rate 98 01/30/17 15:55 Respiratory Rate 16 01/30/17 15:55 Blood Pressure 105/59 01/30/17 15:55 Pulse Oximetry 93 01/30/17 15:55 Height/Weight/BMI: Height 1.65 m Weight 97 kg Body Mass Index 35.5 Comments: GEN-alert, pleasant confused, no acute distressly HEENT-oropharynx is moist, sclerae anicteric NECK-supple CV-regular rate and rhythm CHEST-clear to auscultation bilaterally ABD-soft, obese, nontender, positive bowel sounds -no Meyer EXT-no edema NEURO-confused, no focal deficits SKIN-warm and dry Results - Labs CBC & Chem 7: 01/29/17 04:41 01/29/17 04:41 Labs: Laboratory Tests 01/29/17 01/29/17 01/29/17 10:28 15:19 19:42 Glucometer 168 193 151 01/30/17 01/30/17 01/30/17 05:55 11:07 15:25 Glucometer 128 200 201 Microbiology Results: Proteus is sensitive to Keflex and Rocephin Assessment and Plan (1) Dementia with behavioral disturbance Current visit: Yes Status: Acute (2) Rhinovirus Current visit: Yes Status: Acute Assessment and Plan: 01/30/2017 Assessment and Plan: Admission diagnosis Dementia with behavioral disturbance Cough - + rhinovirus UTI - Proteus Facial rash - suspect herpes zoster-improved Chronic diagnosis Cerebrovascular accident-residual right-sided weakness Dementia Congestive heart failure COPD Diabetes mellitus type 2, 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 Dr. Goetz's consult is greatly appreciated. She has recommended the following changes - Decrease clonazepam to 0.5mg PO q HS with plan to continue taper - Hold statin medication as it could be contributing to agitation at HS - Move Effexor XR to AM rather than HS, consider whether this medication is truly necessary - would need taper to prevent withdrawal - Move Zyprexa to dinnertime rather than HS to prevent owning, consider whether a different antipsychotic would be more helpful - Minimize narcotics and other anticholinergic medication Regarding UTI with Proteus-we'll switch to oral Keflex tomorrow. The patient received Rocephin this morning. Cough with rhinovirus is improving. Continue to monitor the patient closely regarding delirium and a fear disturbance. Continue current insulin dosage. The patient appears to be eating well. Hospital Course Summary Disclaimer: The visit summary below is not to be considered part of the above Progress Note. Hospital Course: Admission diagnosis Dementia with behavioral disturbance Cough - + rhinovirus UTI - patient w/o urinary symptoms, more likely to be asymptomatic bacteriuria Chronic diagnosis Cerebrovascular accident-residual right-sided weakness Dementia Congestive heart failure COPD Diabetes mellitus type 2, insulin requiring Hypertension Hyperlipidemia Coronary artery disease GERD BPH Osteoarthritis Hyperuricemia/gouty arthritis Depression/anxiety 01/28/17 - Hospital admission Admit patient to inpatient status under the care of the hospitalist service, Dr. Metzger attending. Length of stay expected to exceed 2 overnights given new onset of cough, behavioral changes and underlying dementia and other co- morbidities. Resp panel + for rhinovirus. CXR pending at time of documentation. Rocephin 1 gm q 24 hrs IV starting tomorrow am for coverage of pulmonary and urinary pathogens. Levaquin 750 given in ER today. Consider Budesonide if he starts wheezing. Duoneb, Acapella and IS for rhinovirus. Contact precautions. Continue all home meds with exception of recently started Mucinex D. Start plain Mucinex 600BID x 1 wk for expectorant/mucolytic. Urine sent for culture. Accuchecks AC and HS and PRN. Home insulin and SSI PRN. OT/PT/ST to assess and formulate treatment plan. Patient is a DNR. Dr Hussain Hsu to resume care on patient dismissal. Case discussed with Dr. Metzger. Patient started on Valtrex for suspected herpes zoster 01/29/17 GI Panel was performed due to diarrhea. This was negative. Continue DuoNeb, Acapella for his respiratory illness. Continue precautions. Continue Rocephin for UTI. Urine culture has grown out Proteus mirabilis, the sensitivity is not back yet. If he continues to improve and has no significant behaviors, he should likely be able to return to his rehabilitation facility in [place] within the next few days.
[2017-01-30] MEDS: OLANZapine 5 MG TABLET PO SCH (17:33)
[2017-01-30] MEDS: ClonazePAM 1 MG TABLET PO SCH (21:45)
[2017-01-30] MEDS: LISINOPRIL 2.5 MG TABLET PO SCH (21:46)
[2017-01-31] MEDS: ALBUTEROL/IPRATROPIUM 2.5mg-0.5mg/3ml NEB AEROSOL SCH ×4 (07:20→19:19)
[2017-01-31] MEDS: INSULIN GLARGINE 100unit/ml INJECTION SQ SCH ×2 (09:11→22:07)
[2017-01-31] MEDS: ENOXAPARIN 40 MG/0.4 ML INJECTION SQ SCH (09:11)
[2017-01-31] MEDS: ACETAMINOPHEN 325 MG TABLET PO SCH ×3 (09:12→22:26)
[2017-01-31] MEDS: NICOTINE 7 MG PATCH TD SCH (09:12)
[2017-01-31] MEDS: VALACYCLOVIR 500 MG TABLET PO SCH ×3 (09:13→22:25)
[2017-01-31] MEDS: ASPIRIN *EC* 81 MG TABLET PO SCH (09:14)
[2017-01-31] MEDS: RANITIDINE 150 MG TABLET PO SCH ×2 (09:14→22:25)
[2017-01-31] MEDS: FUROSEMIDE 40 MG TABLET PO SCH (09:14)
[2017-01-31] MEDS: GUAIFENESIN LA 600 MG TABLET PO SCH ×2 (09:15→22:25)
[2017-01-31] MEDS: CARVEDILOL 6.25 MG TABLET PO SCH ×2 (09:16→18:13)
[2017-01-31] MEDS: TAMSULOSIN 0.4 MG CAPSULE PO SCH (09:16)
[2017-01-31] MEDS: NICOTINE PATCH REMOVAL TD SCH (09:17)
[2017-01-31] MEDS: CLOPIDOGREL 75 MG TABLET PO SCH (09:17)
[2017-01-31] MEDS: ALLOPURINOL 300 MG TABLET PO SCH (09:17)
--- NOTE | 2017-01-31 12:17 | Progress Note ---
- Date 01/31/17 Subjective: F/U: Dementia with behavior disturbance, UTI with Proteus, Rhinovirus Resting in chair. Will awaken and answer questions appropriately. Not agitated. Has been eating 100% of meals. Breathing well on RA-not needing O2. Last prn Haldol yesterday. Objective Vital signs: Temperature 97.5 F 01/31/17 08:00 Pulse Rate 104 H 01/31/17 08:00 Respiratory Rate 20 01/31/17 11:25 Blood Pressure 112/61 01/31/17 08:00 Pulse Oximetry 96 01/31/17 11:25 Height/Weight/BMI: Height 1.65 m Weight 95.2 kg Body Mass Index 35.5 - Constitutional Present: no acute distress, well nourished, well developed, obese - Routine HEENT Exam Head: Present: normocephalic, atraumatic Eye: Present: EOMI, PERRL ENT: Present: mucous membranes moist - Routine Respiratory Exam Present: CTA bilaterally. Absent: rales, respiratory distress, rhonchi, wheezes , crackles - Routine Cardiovascular Exam Present: RRR, no murmur - Routine Abdominal Exam Present: soft, non distended, non tender. Absent: guarding - Routine Extremities Exam Present: edema (+1 BLE ), pulses intact. Absent: cyanosis, clubbing - Routine Musculoskeletal Exam Musculoskeletal: Present: no clubbing or cyanosis, normal strength - Routine Skin Exam Present: dry, warm - Routine Neurological Exam Present: moving all extremities, vision grossly intact, hearing grossly intact. 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 Respiratory status stable. Oral drive stable. Agitation decreased. Patient currently not able to return to his care facility due to recent agitation. Not able to discharge to [facility] due to precautions needed secondary to Rhinovirus. Would be able to remove precautions after seven day or once cough resolves. Will continue with inpatient treatment and supportive care. Case discussed with CM. Time spent with patient care 25 minutes. DVT Prophylaxis: Lovenox Resuscitation Status: Do Not Resuscitate - Time spent with patient Time with patient PN: 25 minutes Hospital Course Summary Disclaimer: The visit summary below is not to be considered part of the above Progress Note. Hospital Course: Admission diagnosis Dementia with behavioral disturbance Cough - + rhinovirus UTI - patient w/o urinary symptoms, more likely to be asymptomatic bacteriuria Chronic diagnosis Cerebrovascular accident-residual right-sided weakness Dementia Congestive heart failure COPD Diabetes mellitus type 2, insulin requiring Hypertension Hyperlipidemia Coronary artery disease GERD BPH Osteoarthritis Hyperuricemia/gouty arthritis Depression/anxiety 01/28/17 - Hospital admission Admit patient to inpatient status under the care of the hospitalist service, Dr. Metzger attending. Length of stay expected to exceed 2 overnights given new onset of cough, behavioral changes and underlying dementia and other co- morbidities. Resp panel + for rhinovirus. CXR pending at time of documentation. Rocephin 1 gm q 24 hrs IV starting tomorrow am for coverage of pulmonary and urinary pathogens. Levaquin 750 given in ER today. Consider Budesonide if he starts wheezing. Duoneb, Acapella and IS for rhinovirus. Contact precautions. Continue all home meds with exception of recently started Mucinex D. Start plain Mucinex 600BID x 1 wk for expectorant/mucolytic. Urine sent for culture. Accuchecks AC and HS and PRN. Home insulin and SSI PRN. OT/PT/ST to assess and formulate treatment plan. Patient is a DNR. Dr Hussain Hsu to resume care on patient dismissal. Case discussed with Dr. Metzger. Patient started on Valtrex for suspected herpes zoster 01/29/17 GI Panel was performed due to diarrhea. This was negative. Continue DuoNeb, Acapella for his respiratory illness. Continue precautions. Continue Rocephin for UTI. Urine culture has grown out Proteus mirabilis, the sensitivity is not back yet. If he continues to improve and has no significant behaviors, he should likely be able to return to his rehabilitation facility in [place] within the next few days. 11/30/17 The patient has had significant agitation and delirium, especially at night. Dr. Goetz's consult is greatly appreciated. She has recommended the following changes - Decrease clonazepam to 0.5mg PO q HS with plan to continue taper - Hold statin medication as it could be contributing to agitation at HS - Move Effexor XR to AM rather than HS, consider whether this medication is truly necessary - would need taper to prevent withdrawal - Move Zyprexa to dinnertime rather than HS to prevent owning, consider whether a different antipsychotic would be more helpful - Minimize narcotics and other anticholinergic medication Regarding UTI with Proteus-we'll switch to oral Keflex tomorrow. The patient received Rocephin this morning. Cough with rhinovirus is improving. Continue to monitor the patient closely regarding delirium and a fear disturbance. Continue current insulin dosage. The patient appears to be eating well. 01/31/17 Will continue oral cephalexin for 5 days to treat UTI. Above noted psychiatric medications initiated. Respiratory status stable. Oral drive stable. Agitation decreased. Patient currently not able to return to his care facility due to recent agitation. Not able to discharge to [facility] due to precautions needed secondary to Rhinovirus. Would be able to remove precautions after seven day or once cough resolves. Will continue with inpatient treatment and supportive care.
[2017-01-31] MEDS: INSULIN ASPART 100unit/ml INJECTION SQ PRN ×3 (13:37→22:08)
[2017-01-31] MEDS: OLANZapine 5 MG TABLET PO SCH (18:13)
[2017-01-31] MEDS ORDERED: FALL RISK - PHARMACY CONSULT XX ONE (18:30)
[2017-01-31] MEDS: SALINE FLUSH 10ml SYRINGE IVF PRN (22:08)
[2017-01-31] MEDS: LISINOPRIL 2.5 MG TABLET PO SCH (22:25)
[2017-01-31] MEDS: ClonazePAM 1 MG TABLET PO SCH (22:26)
[2017-02-01] MEDS: ALBUTEROL/IPRATROPIUM 2.5mg-0.5mg/3ml NEB AEROSOL SCH ×4 (07:45→19:09)
[2017-02-01] MEDS: INSULIN GLARGINE 100unit/ml INJECTION SQ SCH ×2 (09:33→20:06)
[2017-02-01] MEDS: ASPIRIN *EC* 81 MG TABLET PO SCH (09:34)
[2017-02-01] MEDS: ENOXAPARIN 40 MG/0.4 ML INJECTION SQ SCH (09:34)
[2017-02-01] MEDS: CARVEDILOL 6.25 MG TABLET PO SCH ×2 (09:35→17:35)
[2017-02-01] MEDS: TAMSULOSIN 0.4 MG CAPSULE PO SCH (09:35)
[2017-02-01] MEDS: ACETAMINOPHEN 325 MG TABLET PO SCH ×3 (09:35→20:06)
[2017-02-01] MEDS: RANITIDINE 150 MG TABLET PO SCH ×2 (09:35→20:06)
[2017-02-01] MEDS: VALACYCLOVIR 500 MG TABLET PO SCH ×3 (09:35→20:05)
[2017-02-01] MEDS: GUAIFENESIN LA 600 MG TABLET PO SCH ×2 (09:36→20:06)
[2017-02-01] MEDS: NICOTINE 7 MG PATCH TD SCH (09:36)
[2017-02-01] MEDS: FUROSEMIDE 40 MG TABLET PO SCH (09:36)
[2017-02-01] MEDS: NICOTINE PATCH REMOVAL TD SCH (09:36)
[2017-02-01] MEDS: ALLOPURINOL 300 MG TABLET PO SCH (09:36)
[2017-02-01] MEDS: CLOPIDOGREL 75 MG TABLET PO SCH (09:36)
--- NOTE | 2017-02-01 11:50 | Progress Note ---
- Date 02/01/17 Subjective: F/U: Dementia with behavior disturbance, UTI with Proteus, Rhinovirus Feels like he is doing well. Eating without problems-no ab pain, nausea, or dyspepsia. Not having mouth pain. Breathing feels normal-denies SOA, chest congestion, pain with breathing or cough. No f/c. Not having pains in general. Feels is getting good care here. Objective Vital signs: Temperature 97.3 F 02/01/17 09:21 Pulse Rate 96 02/01/17 09:21 Respiratory Rate 20 02/01/17 11:10 Blood Pressure 116/61 02/01/17 09:21 Pulse Oximetry 95 02/01/17 11:10 Height/Weight/BMI: Height 1.65 m Weight 95.8 kg Body Mass Index 35.5 - Constitutional Present: well nourished, well developed, obese, cooperative. Absent: combative , agitated, somnolent - Routine HEENT Exam Head: Present: normocephalic, atraumatic Eye: Present: EOMI, PERRL ENT: Present: mucous membranes moist (No thrush ) - Routine Respiratory Exam Present: decreased breath sounds. Absent: rales, respiratory distress, rhonchi , wheezes, crackles - Routine Cardiovascular Exam Present: RRR, no murmur - Routine Abdominal Exam Present: soft, normoactive bowel sounds, non distended, non tender - Routine Extremities Exam Present: edema (Trace BLE ), pulses intact. Absent: cyanosis, clubbing - Routine Musculoskeletal Exam Musculoskeletal: Present: no clubbing or cyanosis, normal strength - Routine Skin Exam Present: dry, warm - Routine Neurological Exam Present: alert, CN II-XII intact, moving all extremities, vision grossly intact , hearing grossly intact. Absent: motor deficit - Routine Psychiatric Exam Present: normal affect, cooperative. Absent: anxious, agitated Results - Labs CBC & Chem 7: 01/29/17 04:41 01/29/17 04:41 Assessment and Plan (1) Dementia with behavioral disturbance Current visit: Yes Status: Acute (2) Rhinovirus Current visit: Yes Status: Acute Assessment and Plan: 01/30/2017 Assessment and Plan: Admission diagnosis Dementia with behavioral disturbance Rhinovirus UTI - Proteus Facial rash - suspect herpes zoster-improved Chronic diagnosis Cerebrovascular accident-residual right-sided weakness Dementia Congestive heart failure COPD Diabetes mellitus type 2, 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 Hypertension Hyperlipidemia Coronary artery disease GERD BPH Osteoarthritis Hyperuricemia/gouty arthritis Depression/anxiety Plan Continue cephalexin for urinary coverage. Will continue respiratory isolation due to Rhinovirus. Maintaining saturation on room air. No respiratory distress. Behavior disturbances seem to be improving. Need to continue to monitor. Will continue inpatient treatments - currently do not have safe discharge plan. Case discussed with CM. Time spent with patient care 25 minutes. DVT Prophylaxis: Lovenox Resuscitation Status: Do Not Resuscitate Hospital Course Summary Disclaimer: The visit summary below is not to be considered part of the above Progress Note. Hospital Course: Admission diagnosis Dementia with behavioral disturbance Cough - + rhinovirus UTI - patient w/o urinary symptoms, more likely to be asymptomatic bacteriuria Chronic diagnosis Cerebrovascular accident-residual right-sided weakness Dementia Congestive heart failure COPD Diabetes mellitus type 2, insulin requiring Hypertension Hyperlipidemia Coronary artery disease GERD BPH Osteoarthritis Hyperuricemia/gouty arthritis Depression/anxiety 01/28/17 - Hospital admission Admit patient to inpatient status under the care of the hospitalist service, Dr. Metzger attending. Length of stay expected to exceed 2 overnights given new onset of cough, behavioral changes and underlying dementia and other co- morbidities. Resp panel + for rhinovirus. CXR pending at time of documentation. Rocephin 1 gm q 24 hrs IV starting tomorrow am for coverage of pulmonary and urinary pathogens. Levaquin 750 given in ER today. Consider Budesonide if he starts wheezing. Duoneb, Acapella and IS for rhinovirus. Contact precautions. Continue all home meds with exception of recently started Mucinex D. Start plain Mucinex 600BID x 1 wk for expectorant/mucolytic. Urine sent for culture. Accuchecks AC and HS and PRN. Home insulin and SSI PRN. OT/PT/ST to assess and formulate treatment plan. Patient is a DNR. Dr Hussain Hsu to resume care on patient dismissal. Case discussed with Dr. Metzger. Patient started on Valtrex for suspected herpes zoster 01/29/17 GI Panel was performed due to diarrhea. This was negative. Continue DuoNeb, Acapella for his respiratory illness. Continue precautions. Continue Rocephin for UTI. Urine culture has grown out Proteus mirabilis, the sensitivity is not back yet. If he continues to improve and has no significant behaviors, he should likely be able to return to his rehabilitation facility in [place] within the next few days. 01/30/17 The patient has had significant agitation and delirium, especially at night. Dr. Goetz's consult is greatly appreciated. She has recommended the following changes - Decrease clonazepam to 0.5mg PO q HS with plan to continue taper - Hold statin medication as it could be contributing to agitation at HS - Move Effexor XR to AM rather than HS, consider whether this medication is truly necessary - would need taper to prevent withdrawal - Move Zyprexa to dinnertime rather than HS to prevent owning, consider whether a different antipsychotic would be more helpful - Minimize narcotics and other anticholinergic medication Regarding UTI with Proteus-we'll switch to oral Keflex tomorrow. The patient received Rocephin this morning. Cough with rhinovirus is improving. Continue to monitor the patient closely regarding delirium and a fear disturbance. Continue current insulin dosage. The patient appears to be eating well. 01/31/17 Will continue oral cephalexin for 5 days to treat UTI. Above noted psychiatric medications initiated. Respiratory status stable. Oral drive stable. Agitation decreased. Patient currently not able to return to his care facility due to recent agitation. Not able to discharge to [facility] due to precautions needed secondary to Rhinovirus. Would be able to remove precautions after seven day or once cough resolves. Will continue with inpatient treatment and supportive care. 02/01/17 Continue cephalexin for urinary coverage. Will continue respiratory isolation due to Rhinovirus. Maintaining saturation on room air. No respiratory distress. Behavior disturbances seem to be improving. Need to continue to monitor. Will continue inpatient treatments - currently do not have safe discharge plan.
[2017-02-01] MEDS: INSULIN ASPART 100unit/ml INJECTION SQ PRN (15:32)
[2017-02-01] MEDS: OLANZapine 5 MG TABLET PO SCH (17:36)
[2017-02-01] MEDS: LISINOPRIL 2.5 MG TABLET PO SCH (20:04)
[2017-02-01] MEDS: ClonazePAM 1 MG TABLET PO SCH (20:06)
[2017-02-01] MEDS: SALINE FLUSH 10ml SYRINGE IVF PRN (20:07)
[2017-02-02] MEDS: HALOPERIDOL 5 MG/ML INJECTION IM PRN ×2 (04:15→16:05)
[2017-02-02] MEDS: INSULIN ASPART 100unit/ml INJECTION SQ PRN ×3 (05:37→20:31)
[2017-02-02] MEDS: ALBUTEROL/IPRATROPIUM 2.5mg-0.5mg/3ml NEB AEROSOL SCH ×4 (08:06→19:13)
[2017-02-02] MEDS: ENOXAPARIN 40 MG/0.4 ML INJECTION SQ SCH (08:43)
[2017-02-02] MEDS: CLOPIDOGREL 75 MG TABLET PO SCH (08:44)
[2017-02-02] MEDS: ACETAMINOPHEN 325 MG TABLET PO SCH ×3 (08:44→20:01)
[2017-02-02] MEDS: ASPIRIN *EC* 81 MG TABLET PO SCH (08:44)
[2017-02-02] MEDS: CARVEDILOL 6.25 MG TABLET PO SCH ×2 (08:44→17:27)
[2017-02-02] MEDS: ALLOPURINOL 300 MG TABLET PO SCH (08:44)
[2017-02-02] MEDS: FUROSEMIDE 40 MG TABLET PO SCH (08:45)
[2017-02-02] MEDS: INSULIN GLARGINE 100unit/ml INJECTION SQ SCH ×2 (08:45→20:32)
[2017-02-02] MEDS: NICOTINE 7 MG PATCH TD SCH (08:45)
[2017-02-02] MEDS: GUAIFENESIN LA 600 MG TABLET PO SCH ×2 (08:45→20:02)
[2017-02-02] MEDS: NICOTINE PATCH REMOVAL TD SCH (08:46)
[2017-02-02] MEDS: VALACYCLOVIR 500 MG TABLET PO SCH ×3 (08:46→20:03)
[2017-02-02] MEDS: RANITIDINE 150 MG TABLET PO SCH ×2 (08:46→20:02)
[2017-02-02] MEDS: TAMSULOSIN 0.4 MG CAPSULE PO SCH (08:47)
--- NOTE | 2017-02-02 10:02 | Progress Note ---
- Date 02/02/17 Subjective: F/U: Dementia with behavior disturbance, UTI with Proteus, Rhinovirus Doing well this morning. Eating well-no nausea, ab pain, or mouth pain. Breathing well on room air-rare cough. No pain with breathing. Not having f/c. Nursing notes behavioral issues at night. Nursing note from overnight: "Pt woke up disoriented and angry and set off bed alarm. He just wanted to "get out of here!" Nursing kept patient safe by not allowing him to stand and ambulate, but he became angry and swung a fist at aide. Onelia, charge attendant, assisted by administering IM Haldol. Pt agreed to going on a ride in wheelchair in hospital. Pt became more open to reason within 5 minutes of administering Haldol. Agreed to sit in chair in room. Watched TV for approx 30 minutes, and then stated he was tired and went to bed with nursing assistance. Resting comfortably at this time. Not agitated and is allowing nursing cares. Used call light appropriately several times. Will continue to monitor." During day patient has been cooperative. Zyprexa has been moved to 1800 to try to help issues. Objective Vital signs: Temperature 95.2 F L 02/02/17 07:57 Pulse Rate 95 02/02/17 07:57 Respiratory Rate 16 02/02/17 08:06 Blood Pressure 135/78 02/02/17 07:57 Pulse Oximetry 96 02/02/17 08:06 Height/Weight/BMI: Height 1.65 m Weight 97.4 kg Body Mass Index 35.5 - Constitutional Present: well nourished, well developed, obese, cooperative. Absent: combative , agitated, somnolent - Routine HEENT Exam Head: Present: normocephalic, atraumatic Eye: Present: EOMI, PERRL ENT: Present: mucous membranes moist (No thrush ) - Routine Respiratory Exam Present: decreased breath sounds. Absent: respiratory distress, wheezes, crackles - Routine Cardiovascular Exam Present: RRR, no murmur - Routine Abdominal Exam Present: soft, normoactive bowel sounds, non distended, non tender - Routine Extremities Exam Present: edema (+1 BLE ). Absent: cyanosis, clubbing - Routine Musculoskeletal Exam Musculoskeletal: Present: no clubbing or cyanosis, normal strength - Routine Skin Exam Present: dry, warm - Routine Neurological Exam Present: alert, CN II-XII intact, moving all extremities, vision grossly intact , hearing grossly intact, normal speech. Absent: motor deficit, altered mental status - Routine Psychiatric Exam Present: normal affect. Absent: anxious, agitated Results - Labs CBC & Chem 7: 02/02/17 04:53 02/02/17 04:53 Assessment and Plan (1) Dementia with behavioral disturbance Current visit: Yes Status: Acute (2) Rhinovirus Current visit: Yes Status: Acute Assessment and Plan: 01/30/2017 Assessment and Plan: Admission diagnosis Dementia with behavioral disturbance Rhinovirus UTI - Proteus Facial rash - suspect herpes zoster-improved Chronic diagnosis Cerebrovascular accident-residual right-sided weakness Dementia Congestive heart failure COPD Diabetes mellitus type 2, 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 Hypertension Hyperlipidemia Coronary artery disease GERD BPH Osteoarthritis Hyperuricemia/gouty arthritis Depression/anxiety Plan Continue cephalexin for urinary coverage. No signs of SIRS. Will continue respiratory isolation due to Rhinovirus. Maintaining saturation on room air. No respiratory distress. Will continue inpatient treatments - currently do not have safe discharge plan. Reevaluate tomorrow for [facility] vs return home. Time spent with patient care 25 minutes. DVT Prophylaxis: Lovenox Resuscitation Status: Do Not Resuscitate Hospital Course Summary Disclaimer: The visit summary below is not to be considered part of the above Progress Note. Hospital Course: Admission diagnosis Dementia with behavioral disturbance Cough - + rhinovirus UTI - patient w/o urinary symptoms, more likely to be asymptomatic bacteriuria Chronic diagnosis Cerebrovascular accident-residual right-sided weakness Dementia Congestive heart failure COPD Diabetes mellitus type 2, insulin requiring Hypertension Hyperlipidemia Coronary artery disease GERD BPH Osteoarthritis Hyperuricemia/gouty arthritis Depression/anxiety 01/28/17 - Hospital admission Admit patient to inpatient status under the care of the hospitalist service, Dr. Metzger attending. Length of stay expected to exceed 2 overnights given new onset of cough, behavioral changes and underlying dementia and other co- morbidities. Resp panel + for rhinovirus. CXR pending at time of documentation. Rocephin 1 gm q 24 hrs IV starting tomorrow am for coverage of pulmonary and urinary pathogens. Levaquin 750 given in ER today. Consider Budesonide if he starts wheezing. Duoneb, Acapella and IS for rhinovirus. Contact precautions. Continue all home meds with exception of recently started Mucinex D. Start plain Mucinex 600BID x 1 wk for expectorant/mucolytic. Urine sent for culture. Accuchecks AC and HS and PRN. Home insulin and SSI PRN. OT/PT/ST to assess and formulate treatment plan. Patient is a DNR. Dr Hussain Hsu to resume care on patient dismissal. Case discussed with Dr. Metzger. Patient started on Valtrex for suspected herpes zoster 01/29/17 GI Panel was performed due to diarrhea. This was negative. Continue DuoNeb, Acapella for his respiratory illness. Continue precautions. Continue Rocephin for UTI. Urine culture has grown out Proteus mirabilis, the sensitivity is not back yet. If he continues to improve and has no significant behaviors, he should likely be able to return to his rehabilitation facility in [place] within the next few days. 01/30/17 The patient has had significant agitation and delirium, especially at night. Dr. Goetz's consult is greatly appreciated. She has recommended the following changes - Decrease clonazepam to 0.5mg PO q HS with plan to continue taper - Hold statin medication as it could be contributing to agitation at HS - Move Effexor XR to AM rather than HS, consider whether this medication is truly necessary - would need taper to prevent withdrawal - Move Zyprexa to dinnertime rather than HS to prevent owning, consider whether a different antipsychotic would be more helpful - Minimize narcotics and other anticholinergic medication Regarding UTI with Proteus-we'll switch to oral Keflex tomorrow. The patient received Rocephin this morning. Cough with rhinovirus is improving. Continue to monitor the patient closely regarding delirium and a fear disturbance. Continue current insulin dosage. The patient appears to be eating well. 01/31/17 Will continue oral cephalexin for 5 days to treat UTI. Above noted psychiatric medications initiated. Respiratory status stable. Oral drive stable. Agitation decreased. Patient currently not able to return to his care facility due to recent agitation. Not able to discharge to [facility] due to precautions needed secondary to Rhinovirus. Would be able to remove precautions after seven day or once cough resolves. Will continue with inpatient treatment and supportive care. 02/01/17 Continue cephalexin for urinary coverage. Will continue respiratory isolation due to Rhinovirus. Maintaining saturation on room air. No respiratory distress. Behavior disturbances seem to be improving. Need to continue to monitor. Will continue inpatient treatments - currently do not have safe discharge plan. 02/02/17 Continue cephalexin for urinary coverage. No signs of SIRS. Will continue respiratory isolation due to Rhinovirus. Maintaining saturation on room air. No respiratory distress. Will continue inpatient treatments - currently do not have safe discharge plan. Reevaluate tomorrow for [facility] vs return home.
[2017-02-02] MEDS: OLANZapine 5 MG TABLET PO SCH (17:28)
[2017-02-02] MEDS: LISINOPRIL 2.5 MG TABLET PO SCH (20:02)
[2017-02-02] MEDS: ClonazePAM 1 MG TABLET PO SCH (20:02)
[2017-02-02] MEDS ORDERED: MENTHOL COUGH DROPS (RICOLA) MM PRN (20:42)
[2017-02-03] MEDS ORDERED: HALOPERIDOL 5 MG/ML INJECTION IM ONE (00:56)
[2017-02-03] MEDS: ALBUTEROL/IPRATROPIUM 2.5mg-0.5mg/3ml NEB AEROSOL SCH ×4 (07:21→20:28)
--- NOTE | 2017-02-03 09:33 | Progress Note ---
<Nelly Flowers D - Last Filed: 02/03/17 09:30> - Date 02/03/17 Subjective: "Oniel" was resting comfortably in bed and was not awakened. He has been agitated and angry at staff, and received 4mg of IM Haldol around 0100. He is maintaining sats on room air. Oral intake has been good. Objective Vital signs: Temperature 96.8 F 02/02/17 23:11 Pulse Rate 98 02/02/17 23:11 Respiratory Rate 18 02/03/17 07:23 Blood Pressure 101/56 02/02/17 23:11 Pulse Oximetry 93 02/03/17 07:23 Height/Weight/BMI: Height 1.65 m Weight 97.4 kg Body Mass Index 35.5 - Constitutional Present: no acute distress, well nourished, well developed - Routine HEENT Exam Head: Present: normocephalic - Routine Respiratory Exam Present: CTA bilaterally (anterior breath sounds were clear) - Routine Cardiovascular Exam Present: RRR, S1, S2, tachycardia (slightly tachycardic ~100) - Routine Abdominal Exam Present: soft, normoactive bowel sounds - Routine Extremities Exam Present: no edema, pulses intact - Routine Skin Exam Present: dry, warm - Routine Neurological Exam Absent: alert, oriented X3 - Routine Psychiatric Exam Present: unable to assess Results - Labs CBC & Chem 7: 02/02/17 04:53 02/02/17 04:53 Assessment and Plan (1) Dementia with behavioral disturbance Current visit: Yes Status: Acute (2) Rhinovirus Current visit: Yes Status: Acute Assessment and Plan: Assessment and Plan: Admission diagnoses Dementia with behavioral disturbance Rhinovirus UTI - Proteus Facial rash - suspect herpes zoster-improved Chronic diagnoses Cerebrovascular accident-residual right-sided weakness Dementia Congestive heart failure COPD Diabetes mellitus type 2, 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 Hypertension Hyperlipidemia Coronary artery disease GERD BPH Osteoarthritis Hyperuricemia/gouty arthritis Depression/anxiety Plan Proteus UTI - continue cephalexin, day #6 Agitation and anger prompted IM dose of Haldol early this am - pt may be more drowsy today. Continue course of Valtrex for suspected zoster. Will discuss plans with Dr. Angela. DVT Prophylaxis: Lovenox GI Prophylaxis: Rantidine Resuscitation Status: Do Not Resuscitate Hospital Course Summary Disclaimer: The visit summary below is not to be considered part of the above Progress Note. Hospital Course: Admission diagnosis Dementia with behavioral disturbance Cough - + rhinovirus UTI - patient w/o urinary symptoms, more likely to be asymptomatic bacteriuria Chronic diagnosis Cerebrovascular accident-residual right-sided weakness Dementia Congestive heart failure COPD Diabetes mellitus type 2, insulin requiring Hypertension Hyperlipidemia Coronary artery disease GERD BPH Osteoarthritis Hyperuricemia/gouty arthritis Depression/anxiety 01/28/17 - Hospital admission Admit patient to inpatient status under the care of the hospitalist service, Dr. Metzger attending. Length of stay expected to exceed 2 overnights given new onset of cough, behavioral changes and underlying dementia and other co- morbidities. Resp panel + for rhinovirus. CXR pending at time of documentation. Rocephin 1 gm q 24 hrs IV starting tomorrow am for coverage of pulmonary and urinary pathogens. Levaquin 750 given in ER today. Consider Budesonide if he starts wheezing. Duoneb, Acapella and IS for rhinovirus. Contact precautions. Continue all home meds with exception of recently started Mucinex D. Start plain Mucinex 600BID x 1 wk for expectorant/mucolytic. Urine sent for culture. Accuchecks AC and HS and PRN. Home insulin and SSI PRN. OT/PT/ST to assess and formulate treatment plan. Patient is a DNR. Dr Hussain Hsu to resume care on patient dismissal. Case discussed with Dr. Metzger. Patient started on Valtrex for suspected herpes zoster 01/29/17 GI Panel was performed due to diarrhea. This was negative. Continue DuoNeb, Acapella for his respiratory illness. Continue precautions. Continue Rocephin for UTI. Urine culture has grown out Proteus mirabilis, the sensitivity is not back yet. If he continues to improve and has no significant behaviors, he should likely be able to return to his rehabilitation facility in [place] within the next few days. 01/30/17 The patient has had significant agitation and delirium, especially at night. Dr. Goetz's consult is greatly appreciated. She has recommended the following changes - Decrease clonazepam to 0.5mg PO q HS with plan to continue taper - Hold statin medication as it could be contributing to agitation at HS - Move Effexor XR to AM rather than HS, consider whether this medication is truly necessary - would need taper to prevent withdrawal - Move Zyprexa to dinnertime rather than HS to prevent , consider whether a different antipsychotic would be more helpful - Minimize narcotics and other anticholinergic medication Regarding UTI with Proteus-we'll switch to oral Keflex tomorrow. The patient received Rocephin this morning. Cough with rhinovirus is improving. Continue to monitor the patient closely regarding delirium and a fear disturbance. Continue current insulin dosage. The patient appears to be eating well. 01/31/17 Will continue oral cephalexin for 5 days to treat UTI. Above noted psychiatric medications initiated. Respiratory status stable. Oral drive stable. Agitation decreased. Patient currently not able to return to his care facility due to recent agitation. Not able to discharge to [facility] due to precautions needed secondary to Rhinovirus. Would be able to remove precautions after seven day or once cough resolves. Will continue with inpatient treatment and supportive care. 02/01/17 Continue cephalexin for urinary coverage. Will continue respiratory isolation due to Rhinovirus. Maintaining saturation on room air. No respiratory distress. Behavior disturbances seem to be improving. Need to continue to monitor. Will continue inpatient treatments - currently do not have safe discharge plan. 02/02/17 Continue cephalexin for urinary coverage. No signs of SIRS. Will continue respiratory isolation due to Rhinovirus. Maintaining saturation on room air. No respiratory distress. Will continue inpatient treatments - currently do not have safe discharge plan. Reevaluate tomorrow for [facility] vs return home. <Hua Angela D - Last Filed: 02/03/17 14:16> - Date 02/03/17 Objective Vital signs: Temperature 97.1 F 02/03/17 10:04 Pulse Rate 115 H 02/03/17 10:04 Respiratory Rate 18 02/03/17 10:47 Blood Pressure 105/63 02/03/17 10:04 Pulse Oximetry 95 02/03/17 10:47 Height/Weight/BMI: Height 1.65 m Weight 97.4 kg Body Mass Index 35.5 Results - Labs CBC & Chem 7: 02/02/17 04:53 02/02/17 04:53 Assessment and Plan (1) Dementia with behavioral disturbance Current visit: Yes Status: Acute (2) Rhinovirus Current visit: Yes Status: Acute Assessment and Plan: Assessment and Plan: Admission diagnoses Dementia with behavioral disturbance Rhinovirus UTI - Proteus Facial rash - suspect herpes zoster-improved Chronic diagnoses Cerebrovascular accident-residual right-sided weakness Dementia Congestive heart failure COPD Diabetes mellitus type 2, 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 Hypertension Hyperlipidemia Coronary artery disease GERD BPH Osteoarthritis Hyperuricemia/gouty arthritis Depression/anxiety Have independently interviewed & examined pt. Chart reviewed. Case discussed with ROBERT & my [employer]. Care plan developed with my supervision; agree with above. Resting in bed this afternoon. Not feeling as well as prior days-more tired. Feels breathing more congested. Note some increased cough. Eating okay-not feeling decreased appetite with 'feeling sickly.' Bowels moving. Lungs: decreased bilaterally, slight congestion and wheeze on right as compared to left. No distress on RA. CV: regular AB: soft obese NT/ND EXT: trace edema MSE: awake alert GEN: not looking as energetic as yesterday. Plan: Will check CXR secondary to wheezing and subjective feeling of more chest congestion-will do PA and lateral. Likely tiredness secondary to prn Haldol needed due to behavioral issues. Continue with cephalexin for antimicrobial coverage-potentially need to expand coverage if infiltrate noted on CXR. [facility] rescreen due to continue behavioral issues. Continue with supportive care. Case discuss with ROBERT and my [employer] HOST. Time spent with patient care 25 minutes. - Time spent with patient Time with patient PN: 25 minutes Hospital Course Summary Disclaimer: The visit summary below is not to be considered part of the above Progress Note.
[2017-02-03] MEDS: ENOXAPARIN 40 MG/0.4 ML INJECTION SQ SCH (10:09)
[2017-02-03] MEDS: NICOTINE 7 MG PATCH TD SCH (10:10)
[2017-02-03] MEDS: INSULIN GLARGINE 100unit/ml INJECTION SQ SCH ×2 (10:10→22:09)
[2017-02-03] MEDS: ALLOPURINOL 300 MG TABLET PO SCH (10:11)
[2017-02-03] MEDS: CARVEDILOL 6.25 MG TABLET PO SCH ×2 (10:11→18:35)
[2017-02-03] MEDS: ASPIRIN *EC* 81 MG TABLET PO SCH (10:12)
[2017-02-03] MEDS: ACETAMINOPHEN 325 MG TABLET PO SCH ×3 (10:12→20:34)
[2017-02-03] MEDS: RANITIDINE 150 MG TABLET PO SCH ×2 (10:12→20:35)
[2017-02-03] MEDS: GUAIFENESIN LA 600 MG TABLET PO SCH ×2 (10:12→20:35)
[2017-02-03] MEDS: CLOPIDOGREL 75 MG TABLET PO SCH (10:12)
[2017-02-03] MEDS: TAMSULOSIN 0.4 MG CAPSULE PO SCH (10:12)
[2017-02-03] MEDS: FUROSEMIDE 40 MG TABLET PO SCH (10:12)
[2017-02-03] MEDS: NICOTINE PATCH REMOVAL TD SCH (10:14)
[2017-02-03] MEDS: VALACYCLOVIR 500 MG TABLET PO SCH ×3 (10:30→20:36)
[2017-02-03] MEDS: INSULIN ASPART 100unit/ml INJECTION SQ PRN ×3 (12:07→22:08)
--- NOTE | 2017-02-03 13:02 | Neuropsych Progress Note ---
[facility] Subjective Date: 02/03/17 - Sujective/Severity of Illness Medications: Acetaminophen (Tylenol) 650 mg PO TID [facility] Last Admin: 02/03/17 10:12 Dose: 650 mg Albuterol/Ipratropium (Duoneb) 3 ml AEROSOL RTQID [facility] Last Admin: 02/03/17 10:46 Dose: 3 ml Allopurinol (Zyloprim) 300 mg PO DAILY [facility] Last Admin: 02/03/17 10:11 Dose: 300 mg Aspirin (Ecotrin) 81 mg PO DAILY [facility] Last Admin: 02/03/17 10:12 Dose: 81 mg Carvedilol (Coreg) 6.25 mg PO BIDWM [facility] Last Admin: 02/03/17 10:11 Dose: 6.25 mg Cephalexin HCl (Keflex) 500 mg PO Q12H [facility] Last Admin: 02/03/17 10:11 Dose: 500 mg Clonazepam (Klonopin) 0.5 mg PO HS [facility] Last Admin: 02/02/17 20:02 Dose: 0.5 mg Clopidogrel Bisulfate (Plavix) 75 mg PO DAILY [facility] Last Admin: 02/03/17 10:12 Dose: 75 mg Enoxaparin Sodium (Lovenox) 40 mg SQ DAILY [facility] Last Admin: 02/03/17 10:09 Dose: 40 mg Furosemide (Lasix) 40 mg PO DAILY [facility] Last Admin: 02/03/17 10:12 Dose: 40 mg Guaifenesin (Mucinex La) 600 mg PO BID [facility] Stop: 02/03/17 23:59 Last Admin: 02/03/17 10:12 Dose: 600 mg Haloperidol Lactate (Haldol) 2 mg IM Q12H PRN PRN Reason: Agitation Last Admin: 02/02/17 16:05 Dose: 2 mg Insulin Aspart (Novolog) 0 unit SQ SS PRN; Protocol PRN Reason: Hyperglycemia Last Admin: 02/03/17 12:07 Dose: 2 unit Insulin Glargine (Lantus) 22 unit SQ BID [facility] Last Admin: 02/03/17 10:10 Dose: 22 unit Lisinopril (Prinivil) 2.5 mg PO HS [facility] Last Admin: 02/02/17 20:02 Dose: 2.5 mg Menthol (Ricola Sf) 1 lozenge MM PRN PRN PRN Reason: Cough Last Admin: 02/02/17 20:44 Dose: 1 lozenge Nicotine (Nicoderm) 7 mg TD DAILY [facility] Last Admin: 02/03/17 10:10 Dose: 7 mg Nicotine (Nicotine Patch Removal) 1 removal TD DAILY [facility] Last Admin: 02/03/17 10:14 Dose: 1 removal Olanzapine (Zyprexa) 5 mg PO 18 [facility] Last Admin: 02/02/17 17:28 Dose: 5 mg Oxycodone HCl (Roxicodone *Ir*) 5 mg PO HS [facility] Last Admin: 01/29/17 20:24 Dose: 5 mg Potassium Chloride (K-Dur) 20 meq PO WB [facility] Last Admin: 02/03/17 10:10 Dose: 20 meq Ranitidine HCl (Zantac) 150 mg PO BID [facility] Last Admin: 02/03/17 10:12 Dose: 150 mg Sodium Chloride (Iv Flush) 10 - 80 ml IVF PRN PRN PRN Reason: Flushing Last Admin: 02/01/17 20:07 Dose: 10 ml Tamsulosin HCl (Flomax) 0.4 mg PO DAILY [facility] Last Admin: 02/03/17 10:12 Dose: 0.4 mg Valacyclovir HCl (Valtrex) 1,000 mg PO TID [facility] Stop: 02/04/17 23:59 Last Admin: 02/03/17 10:30 Dose: 1,000 mg Venlafaxine HCl (Effexor Xr) 150 mg PO 09 [facility] Last Admin: 02/03/17 10:11 Dose: 150 mg Subjective: Patient seen and chart reviewed. On interview, patient is calm and cooperative though somewhat confused. He denies any SI, HI, AVH. No delusional thought content elicited. However, nursing staff have reported intermittent agitation requiring multiple PRNs. Patient is still on respiratory precautions. Start Time: 12:00 Stop Time: 12:20 Mental Status Exam Vitals: Last Vital Signs Temp 97.1 F 02/03/17 10:04 Pulse 115 H 02/03/17 10:04 Resp 18 02/03/17 10:47 BP 105/63 02/03/17 10:04 Pulse Ox 95 02/03/17 10:47 Height: 1.65 m Weight: 97.4 kg - Mental Status Exam Muscle Strength/Tone: Normal Dressing: Casual Grooming: Fair Attitude: Combative (intermittent per staff report) Motor Activity: Normal Eye Contact: Good Speech: Normal Volume: Normal Rhythm: Appropriate Rhythm Orientation: Disoriented to time, Disoriented to situation, Oriented to person, Oriented to place Mood: Neutral (labile affect) Rate of Thoughts: Delayed Thought Organization: Organized, Confused (improved from previous during interview) Associations: Intact Abstract Reasoning: Impaired, concrete Thought Content: Normal (during interview) Perception/Psychotic: Hx psychosis, 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 Language: Naming Impaired Fund of Knowledge: Other (decreased) Memory: Poor-recent Suicidal Ideation: Denies Homicidal Ideation: Denies Insight: Impaired Judgement: Impaired Impulse Control: Poor - Laboratory Result Diagrams: 02/02/17 04:53 02/02/17 04:53 Laboratory Results - last 24 hr 02/02/17 02/02/17 02/03/17 15:57 20:11 06:30 Glucometer 142 244 104 02/03/17 12:03 Glucometer 232 Assessment and Plan (1) Delirium Problem details: due to UTI Current visit: Yes Status: Acute (2) Major neurocognitive disorder Problem details: vascular etiology, moderate, with behavioral disturbance Current visit: Yes Status: Acute (3) Urinary tract infection Qualifiers: Urinary tract infection type: acute cystitis Hematuria presence: with hematuria Qualified Code(s): N30.01 - Acute cystitis with hematuria Current visit: Yes Status: Acute (4) History of CVA (cerebrovascular accident) Current visit: Yes Status: Acute (5) Type 2 diabetes mellitus Current visit: Yes Status: Acute (6) COPD (chronic obstructive pulmonary disease) Current visit: Yes Status: Acute (7) Hypertension Current visit: Yes Status: Acute (8) Hyperlipidemia Current visit: Yes Status: Acute (9) Congestive heart failure Current visit: Yes Status: Acute Hospital Course Summary Disclaimer: The visit summary below is not to be considered part of the above Progress Note. Hospital Course: Admission diagnosis Dementia with behavioral disturbance Cough - + rhinovirus UTI - patient w/o urinary symptoms, more likely to be asymptomatic bacteriuria Chronic diagnosis Cerebrovascular accident-residual right-sided weakness Dementia Congestive heart failure COPD Diabetes mellitus type 2, insulin requiring Hypertension Hyperlipidemia Coronary artery disease GERD BPH Osteoarthritis Hyperuricemia/gouty arthritis Depression/anxiety 01/28/17 - Hospital admission Admit patient to inpatient status under the care of the hospitalist service, Dr. Metzger attending. Length of stay expected to exceed 2 overnights given new onset of cough, behavioral changes and underlying dementia and other co- morbidities. Resp panel + for rhinovirus. CXR pending at time of documentation. Rocephin 1 gm q 24 hrs IV starting tomorrow am for coverage of pulmonary and urinary pathogens. Levaquin 750 given in ER today. Consider Budesonide if he starts wheezing. Duoneb, Acapella and IS for rhinovirus. Contact precautions. Continue all home meds with exception of recently started Mucinex D. Start plain Mucinex 600BID x 1 wk for expectorant/mucolytic. Urine sent for culture. Accuchecks AC and HS and PRN. Home insulin and SSI PRN. OT/PT/ST to assess and formulate treatment plan. Patient is a DNR. Dr Hussain Hsu to resume care on patient dismissal. Case discussed with Dr. Metzger. Patient started on Valtrex for suspected herpes zoster 01/29/17 GI Panel was performed due to diarrhea. This was negative. Continue DuoNeb, Acapella for his respiratory illness. Continue precautions. Continue Rocephin for UTI. Urine culture has grown out Proteus mirabilis, the sensitivity is not back yet. If he continues to improve and has no significant behaviors, he should likely be able to return to his rehabilitation facility in [place] within the next few days. 01/30/17 The patient has had significant agitation and delirium, especially at night. Dr. Goetz's consult is greatly appreciated. She has recommended the following changes - Decrease clonazepam to 0.5mg PO q HS with plan to continue taper - Hold statin medication as it could be contributing to agitation at HS - Move Effexor XR to AM rather than HS, consider whether this medication is truly necessary - would need taper to prevent withdrawal - Move Zyprexa to dinnertime rather than HS to prevent owning, consider whether a different antipsychotic would be more helpful - Minimize narcotics and other anticholinergic medication Regarding UTI with Proteus-we'll switch to oral Keflex tomorrow. The patient received Rocephin this morning. Cough with rhinovirus is improving. Continue to monitor the patient closely regarding delirium and a fear disturbance. Continue current insulin dosage. The patient appears to be eating well. 01/31/17 Will continue oral cephalexin for 5 days to treat UTI. Above noted psychiatric medications initiated. Respiratory status stable. Oral drive stable. Agitation decreased. Patient currently not able to return to his care facility due to recent agitation. Not able to discharge to [facility] due to precautions needed secondary to Rhinovirus. Would be able to remove precautions after seven day or once cough resolves. Will continue with inpatient treatment and supportive care. 02/01/17 Continue cephalexin for urinary coverage. Will continue respiratory isolation due to Rhinovirus. Maintaining saturation on room air. No respiratory distress. Behavior disturbances seem to be improving. Need to continue to monitor. Will continue inpatient treatments - currently do not have safe discharge plan. 02/02/17 Continue cephalexin for urinary coverage. No signs of SIRS. Will continue respiratory isolation due to Rhinovirus. Maintaining saturation on room air. No respiratory distress. Will continue inpatient treatments - currently do not have safe discharge plan. Reevaluate tomorrow for [facility] vs return home. 02/03/17 Psych: Patient continues to be on respiratory precautions as well as antibiotic coverage for UTI. Recommend discontinuing Zyprexa, scheduling Haldol 1mg PO BID with an additional 0.5mg PO/IM q 4hrs PRN agitation. Have re-ordered EKG to monitor QTc (454ms upon admission) as patient has gotten multiple doses of both scheduled and PRN antipsychotics. Psychiatry will continue to follow.
--- NOTE | 2017-02-03 15:15 | XRay Report ---
Indication: chest congestion PROCEDURE: XR chest 2V: Encounter: Initial Comparison: 01/28/2017 Findings: The patient is status post median sternotomy. There is mild cardiomegaly. There is mild diffuse interstitial prominence without lobar consolidation or pleural effusion. There is a mildly tortuous descending thoracic aorta. Trachea is midline. Impression: Cardiomegaly with mild diffuse interstitial prominence which may represent chronic interstitial lung disease. No definite overt CHF. .
[2017-02-03] MEDS: OLANZapine 5 MG TABLET PO SCH (18:35)
[2017-02-03] MEDS: ClonazePAM 1 MG TABLET PO SCH (20:33)
[2017-02-03] MEDS: LISINOPRIL 2.5 MG TABLET PO SCH (20:42)
[2017-02-04] MEDS: ALBUTEROL/IPRATROPIUM 2.5mg-0.5mg/3ml NEB AEROSOL SCH ×2 (07:05→10:55)
[2017-02-04 08:32] VITALS: BP 123/53; PULSE 109; TEMP 96.4
[2017-02-04] MEDS: CARVEDILOL 6.25 MG TABLET PO SCH (09:43)
[2017-02-04] MEDS: ACETAMINOPHEN 325 MG TABLET PO SCH (09:44)
[2017-02-04] MEDS: ALLOPURINOL 300 MG TABLET PO SCH (09:44)
[2017-02-04] MEDS: FUROSEMIDE 40 MG TABLET PO SCH (09:45)
[2017-02-04] MEDS: ENOXAPARIN 40 MG/0.4 ML INJECTION SQ SCH (09:45)
[2017-02-04] MEDS: INSULIN GLARGINE 100unit/ml INJECTION SQ SCH (09:45)
[2017-02-04] MEDS: ASPIRIN *EC* 81 MG TABLET PO SCH (09:45)
[2017-02-04] MEDS: CLOPIDOGREL 75 MG TABLET PO SCH (09:45)
[2017-02-04] MEDS: NICOTINE 7 MG PATCH TD SCH (09:46)
[2017-02-04] MEDS: TAMSULOSIN 0.4 MG CAPSULE PO SCH (09:47)
[2017-02-04] MEDS: NICOTINE PATCH REMOVAL TD SCH (09:47)
[2017-02-04] MEDS: RANITIDINE 150 MG TABLET PO SCH (09:47)
[2017-02-04] MEDS: VALACYCLOVIR 500 MG TABLET PO SCH (10:02)
[2017-02-04 11:05] VITALS: RESP 18; O2SAT 96
--- NOTE | 2017-02-04 11:06 | Progress Note ---
- Date 02/04/17 Subjective: F/U: Dementia with behavior disturbance, UTI with Proteus, Rhinovirus Doing well this morning. Breathing feels okay-not as congested as yesterday. Eating well. No ab pain or nausea. Strength stable-was finishing with OT when I came in. Urinating well. No f/c. Objective Vital signs: Temperature 96.4 F L 02/04/17 08:31 Pulse Rate 109 H 02/04/17 08:31 Respiratory Rate 20 02/04/17 08:31 Blood Pressure 123/53 02/04/17 08:31 Pulse Oximetry 91 02/04/17 08:31 Height/Weight/BMI: Height 1.65 m Weight 95.5 kg Body Mass Index 35.5 - Constitutional Present: well nourished, well developed, obese - Routine HEENT Exam Head: Present: normocephalic, atraumatic Eye: Present: EOMI, PERRL ENT: Present: mucous membranes moist - Routine Respiratory Exam Present: decreased breath sounds, diminished air movement. Absent: rales, respiratory distress, rhonchi, wheezes, crackles - Routine Cardiovascular Exam Present: RRR, no murmur - Routine Abdominal Exam Present: soft, normoactive bowel sounds, non distended, non tender. Absent: guarding - Routine Extremities Exam Present: edema (Trace LE edema bilaterally ), pulses intact. Absent: cyanosis, clubbing - Routine Musculoskeletal Exam Musculoskeletal: Present: no clubbing or cyanosis, normal strength - Routine Skin Exam Present: dry, warm - Routine Neurological Exam Present: alert, CN II-XII intact, moving all extremities, vision grossly intact , hearing grossly intact, normal speech. Absent: motor deficit, altered mental status - Routine Psychiatric Exam Present: normal affect. 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 Patient no longer contagious. Respiratory status is stable. Repeat CXR from yesterday showing no pneumonia. Will continue with breathing treatments and IS while on [facility] to help respiratory status. Treatment for proteus UTI nearly completed - needs another 2 doses of cephalexin. Can discontinue valacyclovir as course completed. Facial rash resolved. Blood sugars have been stable. Oral drive doing well. Patient has been accepted to [facility] for continued treatment of behavioral disturbance and medication adjustments. Oxycodone and Mevacor stopped as could contributed to behaviors disturbance. Clonazepam decreased from 1mg to 0.5mg - psych may taper off. Psych recommending stopping Zyprexa -Initiate Haldol 1mg po BID with additional 0.5 PO/IM every 4 hours as needed for agitation. With improving clinical statue, patient medically stable to discharge to IRU. Will need F/U with Dr Hussain Hsu (patient's PCP) 1 week post discharger from IRU. See orders for details. Case discussed with CM. Time spent with patient care and discharge greater than 30 minutes. DVT Prophylaxis: Lovenox Resuscitation Status: Do Not Resuscitate Hospital Course Summary Disclaimer: The visit summary below is not to be considered part of the above Progress Note. Hospital Course: Admission diagnosis Dementia with behavioral disturbance Cough - + rhinovirus UTI - patient w/o urinary symptoms, more likely to be asymptomatic bacteriuria Chronic diagnosis Cerebrovascular accident-residual right-sided weakness Dementia Congestive heart failure COPD Diabetes mellitus type 2, insulin requiring Hypertension Hyperlipidemia Coronary artery disease GERD BPH Osteoarthritis Hyperuricemia/gouty arthritis Depression/anxiety 01/28/17 - Hospital admission Admit patient to inpatient status under the care of the hospitalist service, Dr. Metzger attending. Length of stay expected to exceed 2 overnights given new onset of cough, behavioral changes and underlying dementia and other co- morbidities. Resp panel + for rhinovirus. CXR pending at time of documentation. Rocephin 1 gm q 24 hrs IV starting tomorrow am for coverage of pulmonary and urinary pathogens. Levaquin 750 given in ER today. Consider Budesonide if he starts wheezing. Duoneb, Acapella and IS for rhinovirus. Contact precautions. Continue all home meds with exception of recently started Mucinex D. Start plain Mucinex 600BID x 1 wk for expectorant/mucolytic. Urine sent for culture. Accuchecks AC and HS and PRN. Home insulin and SSI PRN. OT/PT/ST to assess and formulate treatment plan. Patient is a DNR. Dr Hussain Hsu to resume care on patient dismissal. Case discussed with Dr. Metzger. Patient started on Valtrex for suspected herpes zoster 01/29/17 GI Panel was performed due to diarrhea. This was negative. Continue DuoNeb, Acapella for his respiratory illness. Continue precautions. Continue Rocephin for UTI. Urine culture has grown out Proteus mirabilis, the sensitivity is not back yet. If he continues to improve and has no significant behaviors, he should likely be able to return to his rehabilitation facility in [place] within the next few days. 01/30/17 The patient has had significant agitation and delirium, especially at night. Dr. Goetz's consult is greatly appreciated. She has recommended the following changes - Decrease clonazepam to 0.5mg PO q HS with plan to continue taper - Hold statin medication as it could be contributing to agitation at HS - Move Effexor XR to AM rather than HS, consider whether this medication is truly necessary - would need taper to prevent withdrawal - Move Zyprexa to dinnertime rather than HS to prevent owning, consider whether a different antipsychotic would be more helpful - Minimize narcotics and other anticholinergic medication Regarding UTI with Proteus-we'll switch to oral Keflex tomorrow. The patient received Rocephin this morning. Cough with rhinovirus is improving. Continue to monitor the patient closely regarding delirium and a fear disturbance. Continue current insulin dosage. The patient appears to be eating well. 01/31/17 Will continue oral cephalexin for 5 days to treat UTI. Above noted psychiatric medications initiated. Respiratory status stable. Oral drive stable. Agitation decreased. Patient currently not able to return to his care facility due to recent agitation. Not able to discharge to [facility] due to precautions needed secondary to Rhinovirus. Would be able to remove precautions after seven day or once cough resolves. Will continue with inpatient treatment and supportive care. 02/01/17 Continue cephalexin for urinary coverage. Will continue respiratory isolation due to Rhinovirus. Maintaining saturation on room air. No respiratory distress. Behavior disturbances seem to be improving. Need to continue to monitor. Will continue inpatient treatments - currently do not have safe discharge plan. 02/02/17 Continue cephalexin for urinary coverage. No signs of SIRS. Will continue respiratory isolation due to Rhinovirus. Maintaining saturation on room air. No respiratory distress. Will continue inpatient treatments - currently do not have safe discharge plan. Reevaluate tomorrow for [facility] vs return home. 02/03/17 Proteus UTI - continue cephalexin, day #6 Agitation and anger prompted IM dose of Haldol early this am - pt may be more drowsy today. Continue course of Valtrex for suspected zoster. Psych: Patient continues to be on respiratory precautions as well as antibiotic coverage for UTI. Recommend discontinuing Zyprexa, scheduling Haldol 1mg PO BID with an additional 0.5mg PO/IM q 4hrs PRN agitation. Have re-ordered EKG to monitor QTc (454ms upon admission) as patient has gotten multiple doses of both scheduled and PRN antipsychotics. Psychiatry will continue to follow. 02/04/17 Isolation for Rhinovirus can be lifted. Patient no longer contagious. Respiratory status is stable. Repeat CXR from yesterday showing no pneumonia. Will continue with breathing treatments and IS while on [facility] to help respiratory status. Treatment for proteus UTI nearly completed - needs another 2 doses of cephalexin. Can discontinue valacyclovir as course completed. Facial rash resolved. Blood sugars have been stable. Oral drive doing well. Patient has been accepted to [facility] for continued treatment of behavioral disturbance and medication adjustments. Oxycodone and Mevacor stopped as could contributed to behaviors disturbance. Clonazepam decreased from 1mg to 0.5mg - psych may taper off. Psych recommending stopping Zyprexa - Initiate Haldol 1mg po BID with additional 0.5 PO/IM every 4 hours as needed for agitation. With improving clinical statue, patient medically stable to discharge to IRU. Will need to F/U with Dr Hussain Hsu (PCP) 1 week post discharge from [facility]. See orders for details.
[2017-02-04] MEDS: INSULIN ASPART 100unit/ml INJECTION SQ PRN (11:30)
--- NOTE | 2017-02-04 11:45 | Discharge Summary ---
Discharge Information Date of admission: 01/28/17 16:20 Anticipated date of discharge: 02/04/17 Attending Physician: Hua Angela MD Primary care physician: Dr Hussain Hsu Consults: Physician Consult: Nichole Goetz Reason For Exam: delusions, aggressive behaviors PT/OT/Speech - Discharge Diagnosis (1) Dementia with behavioral disturbance Status: Acute (2) Rhinovirus Status: Acute Discharge diagnosis Dementia with behavioral disturbance Rhinovirus UTI - Proteus Facial rash - suspect herpes zoster - improved Associated conditions and complications Cerebrovascular accident - residual right-sided weakness Dementia Congestive heart failure (NOS), chronic/stable COPD Diabetes mellitus type 2, 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 Hypertension Hyperlipidemia Coronary artery disease GERD BPH Osteoarthritis Hyperuricemia/gouty arthritis Depression/anxiety Obesity with BMI 35.0 - Laboratory Labs: Admit Lab 01/28/17 14:10 WBC 7.0 Hgb 12.0 L Hct 40.2 L MCV 95.5 Plt Count 244 Neut % (Auto) 62.2 Lymph % (Auto) 24.8 [place] % (Auto) 6.5 Eos % (Auto) 5.5 H Admit Lab 01/28/17 14:10 Sodium 142 Potassium 4.4 Chloride 108 H Carbon Dioxide 27 Anion Gap 7 BUN 24.0 H Creatinine 1.0 GFR Calculation 71 BUN/Creatinine Ratio 24 Glucose 180 H Calculated Osmolality 282 H Calcium 9.2 Total Bilirubin 0.30 AST 14 L ALT 23 Alkaline Phosphatase 94 Total Protein 6.8 Albumin 3.5 Globulin 3.3 Albumin/Globulin Ratio 1.1 TSH 2.88 Respiratory panel 01/28/17 17:31 Entero/Rhino (PCR) Detected A 02/02/17 04:53 02/02/17 04:53 - Microbiology Urine culture: Proteus mirabilis - Radiology Radiology: Date of Exam: 01/28/17 PROCEDURE: CHEST 2-VIEWS UPRIGHT (PA & LAT) FINDINGS: Fibrosis or scarring in the lung bases. Lungs are otherwise clear. There is no pleural effusion or pneumothorax. Post-sternotomy changes are present. The heart size is at the upper limits of normal. The mediastinal contours and pulmonary vascularity are within normal limits. IMPRESSION: No pneumonia. Date of Exam: 02/03/17 PROCEDURE: XR chest 2V Findings: The patient is status post median sternotomy. There is mild cardiomegaly. There is mild diffuse interstitial prominence without lobar consolidation or pleural effusion. There is a mildly tortuous descending thoracic aorta. Trachea is midline. Impression: Cardiomegaly with mild diffuse interstitial prominence which may represent chronic interstitial lung disease. No definite overt CHF. History of Present Illness HPI: Patient is an 81-year-old male who originally presented to the emergency department for clearance to the [facility]. He had a stroke on December 05, and after a short hospital stay, was transferred to rehabilitation unit on December 08. He was transferred here due to increasing behavioral issues. Apparently, he became combative and aggressive to staff, throwing chairs and swinging equipment around the room. Prior to his stroke he was living with his daughter and grandson at their home in [place]. Cher reports patient has dementia, but prior to his stroke, had no major behavioral issues other than "having a bad day" now and then. Cher notes patient has had a progressive cough starting yesterday. Patient has a history of frequent pneumonia over the last few years. Patient complains of some shortness of air and some chest pain associated with the cough. He has had no urinary symptoms. Bowel movements are usually regular. Cher also notes the patient developed a rash to the left side of his face on 01/26/17. Patient denies itching and states it hurts at times. In the ER, urinalysis showed 2+ leuks, 3+ bacteria and a large number of white blood cells. He was given a dose of Levaquin and for diagnosis of UTI. White blood cell count was 7.0, hemoglobin 12.0, platelets 244. Given that it was thought his encephalopathy could be related to UTI, patient was admitted to the medical unit as opposed to [facility]. For complete details of the H&P refer to that document. Objective Vital signs: Temperature 96.4 F L 02/04/17 08:31 Pulse Rate 109 H 02/04/17 08:31 Respiratory Rate 18 02/04/17 10:55 Blood Pressure 123/53 02/04/17 08:31 Pulse Oximetry 96 02/04/17 10:55 Height/Weight/BMI: Height 1.65 m Weight 95.5 kg Body Mass Index 35.5 Hospital Course This is a general summary of the patient's hospital course. For more details refer to the complete medical record. Hospital course: Admission diagnosis Dementia with behavioral disturbance Cough - + rhinovirus UTI - patient w/o urinary symptoms, more likely to be asymptomatic bacteriuria Chronic diagnosis Cerebrovascular accident-residual right-sided weakness Dementia Congestive heart failure COPD Diabetes mellitus type 2, insulin requiring Hypertension Hyperlipidemia Coronary artery disease GERD BPH Osteoarthritis Hyperuricemia/gouty arthritis Depression/anxiety 01/28/17 - Hospital admission Admit patient to inpatient status under the care of the hospitalist service, Dr. Metzger attending. Length of stay expected to exceed 2 overnights given new onset of cough, behavioral changes and underlying dementia and other co- morbidities. Resp panel + for rhinovirus. CXR pending at time of documentation. Rocephin 1 gm q 24 hrs IV starting tomorrow am for coverage of pulmonary and urinary pathogens. Levaquin 750 given in ER today. Consider Budesonide if he starts wheezing. Duoneb, Acapella and IS for rhinovirus. Contact precautions. Continue all home meds with exception of recently started Mucinex D. Start plain Mucinex 600BID x 1 wk for expectorant/mucolytic. Urine sent for culture. Accuchecks AC and HS and PRN. Home insulin and SSI PRN. OT/PT/ST to assess and formulate treatment plan. Patient is a DNR. Dr Hussain Hsu to resume care on patient dismissal. Case discussed with Dr. Metzger. Patient started on Valtrex for suspected herpes zoster 01/29/17 GI Panel was performed due to diarrhea. This was negative. Continue DuoNeb, Acapella for his respiratory illness. Continue precautions. Continue Rocephin for UTI. Urine culture has grown out Proteus mirabilis, the sensitivity is not back yet. If he continues to improve and has no significant behaviors, he should likely be able to return to his rehabilitation facility in [place] within the next few days. 01/30/17 The patient has had significant agitation and delirium, especially at night. Dr. Goetz's consult is greatly appreciated. She has recommended the following changes - Decrease clonazepam to 0.5mg PO q HS with plan to continue taper - Hold statin medication as it could be contributing to agitation at HS - Move Effexor XR to AM rather than HS, consider whether this medication is truly necessary - would need taper to prevent withdrawal - Move Zyprexa to dinnertime rather than HS to prevent ing, consider whether a different antipsychotic would be more helpful - Minimize narcotics and other anticholinergic medication Regarding UTI with Proteus-we'll switch to oral Keflex tomorrow. The patient received Rocephin this morning. Cough with rhinovirus is improving. Continue to monitor the patient closely regarding delirium and a fear disturbance. Continue current insulin dosage. The patient appears to be eating well. 01/31/17 Will continue oral cephalexin for 5 days to treat UTI. Above noted psychiatric medications initiated. Respiratory status stable. Oral drive stable. Agitation decreased. Patient currently not able to return to his care facility due to recent agitation. Not able to discharge to [facility] due to precautions needed secondary to Rhinovirus. Would be able to remove precautions after seven day or once cough resolves. Will continue with inpatient treatment and supportive care. 02/01/17 Continue cephalexin for urinary coverage. Will continue respiratory isolation due to Rhinovirus. Maintaining saturation on room air. No respiratory distress. Behavior disturbances seem to be improving. Need to continue to monitor. Will continue inpatient treatments - currently do not have safe discharge plan. 02/02/17 Continue cephalexin for urinary coverage. No signs of SIRS. Will continue respiratory isolation due to Rhinovirus. Maintaining saturation on room air. No respiratory distress. Will continue inpatient treatments - currently do not have safe discharge plan. Reevaluate tomorrow for [facility] vs return home. 02/03/17 Proteus UTI - continue cephalexin, day #6 Agitation and anger prompted IM dose of Haldol early this am - pt may be more drowsy today. Continue course of Valtrex for suspected zoster. Psych: Patient continues to be on respiratory precautions as well as antibiotic coverage for UTI. Recommend discontinuing Zyprexa, scheduling Haldol 1mg PO BID with an additional 0.5mg PO/IM q 4hrs PRN agitation. Have re-ordered EKG to monitor QTc (454ms upon admission) as patient has gotten multiple doses of both scheduled and PRN antipsychotics. Psychiatry will continue to follow. 02/04/17 Isolation for Rhinovirus can be lifted. Patient no longer contagious. Respiratory status is stable. Repeat CXR from yesterday showing no pneumonia. Will continue with breathing treatments and IS while on [facility] to help respiratory status. Treatment for proteus UTI nearly completed - needs another 2 doses of cephalexin. Can discontinue valacyclovir as course completed. Facial rash resolved. Blood sugars have been stable. Oral drive doing well. Patient has been accepted to [facility] for continued treatment of behavioral disturbance and medication adjustments. Oxycodone and Mevacor stopped as could contributed to behaviors disturbance. Clonazepam decreased from 1mg to 0.5mg - psych may taper off. Psych recommending stopping Zyprexa - Initiate Haldol 1mg po BID with additional 0.5 PO/IM every 4 hours as needed for agitation. With improving clinical statue, patient medically stable to discharge to IRU. Will need to F/U with Dr Hussain Hsu (PCP) 1 week post discharge from [facility]. See orders for details. Time spent with patient: discharge greater than 30 minutes DVT Prophylaxis: Lovenox Discharge Plan - Discharge Disposition Discharge Date: 02/04/17 Disposition: 63 To [facility] *Condition: Improved Reason For Visit (Visit label in EMR): encephalopathy,UTI - Discharge Medications *Discharge Medications: New Carvedilol [Coreg] 6.25 mg PO BIDWM tab ClonazePAM [Klonopin] 0.5 mg PO HS tab Enoxaparin Sodium [Lovenox] 40 mg SQ DAILY syringe Haloperidol [Haldol] 1 mg PO BID #60 tab Nicotine Patch [Nicoderm] 7 mg TD DAILY patch Nicotine Patch Removal 1 removal TD DAILY patch Albuterol/Ipratropium [Duoneb] 3 ml AEROSOL RTQID each CephALEXin [Keflex] 500 mg PO Q12H #2 cap Haloperidol [Haldol] 0.5 mg PO Q4HR PRN #30 tab PRN Reason: Agitation Venlafaxine XR [Effexor Xr] 150 mg PO 09 cap Continue Aspirin *EC* [Ecotrin] 81 mg PO DAILY Allopurinol [Zyloprim] 300 mg PO DAILY Acetaminophen 650 mg PO TID Clopidogrel Bisulfate [Clopidogrel] 75 mg PO DAILY Lisinopril [Prinivil] 2.5 mg PO HS Insulin Glargine [Lantus] 22 units SQ BID Ranitidine [Zantac] 150 mg PO BID Potassium Chloride [K-Tab ER] 20 meq PO DAILY Furosemide [Lasix] 40 mg PO DAILY Tamsulosin [Flomax] 0.4 mg PO DAILY Discontinued Guaifenesin/P-Ephed 600/60 Tab [Mucinex D] 1 tab PO Q12HR Venlafaxine HCl [Venlafaxine HCl ER] 150 mg PO HS Carvedilol [Carvedilol] 6.25 mg PO BID ClonazePAM [Klonopin] 1 mg PO HS Oxycodone HCl [Oxaydo] 5 mg PO HS Lovastatin [Mevacor] 20 mg PO HS OLANZapine [Olanzapine] 5 mg PO DAILY - Discharge Packet/Instructions *Diet: 2000 KCAL carb consistent *Activity: As tolerated *Pain Management/Treatment: Tylenol as needed *Wound Care: n/a *Expected Signs/Symptoms: Improvement of respiratory status. Improvement of mood and psychiatric status. *Notify Physician if: Temp >100.4. Increased SOA *During Business Hours Contact: Nursing staff on [facility] *After Business Hours Contact: Nursing staff on [facility] *Pending Lab/Results: No Pending Lab - IRU/GEN Discharge/Transfer - Referrals/Follow Up *Referrals/Follow Up: Hussain Hsu MD [Physician] - (1 week after discharge from [facility] ) - Patient Handouts Patient Handouts: Encephalopathy (GEN), Urinary Traction Infection in Older Adults (GEN) - Dismissal Complete Discharge Instructions are:: Complete Attestation Narriative - Attestation Attestation Narrative: 02/04/17 11:49 I have independently interviewed and examined patient prior to discharge. See my progress note from today for details. Medically stable for discharge to [facility].
== END 2017-02-04 13:30 | DRG 884 ==
LOC: ED 13:18 → SUATTDRO 16:20 → MED 16:20
PROVIDERS: ADMIT Internal Medicine; ATTEND Hospitalist

== ENCOUNTER 2017-02-04 13:30 | Inpatient (IN) ==
[2017-02-04] MEDS ORDERED: MENTHOL COUGH DROPS (RICOLA) MM PRN (14:13)
[2017-02-04] MEDS ORDERED: INSULIN ASPART 100unit/ml INJECTION SQ PRN (14:13)
[2017-02-04] MEDS ORDERED: HALOPERIDOL 0.5 MG TABLET PO PRN ×2 (14:13→15:34)
[2017-02-04] MEDS ORDERED: HALOPERIDOL 5 MG/ML INJECTION IM PRN ×2 (14:13→15:34)
--- OUTSIDE RECORDS SUMMARY | 2017-02-04 14:16 | External Medical Summary | Clinical Summary ---
:1935 Author Organization [facility] Address [address] [address] Phone Support Name Relationship Address Phone Unavailable Unavailable [address] [place] [address] Unavailable Unavailable Unavailable Unavailable Allergies Active Allergy [...] 10/12/2015 Active Monitoring Suppl Monitor: Use to [facility] check blood glucose three times daily, Dx: E11.65 ONETOUCH DELICA USE UP TO THREE 100 each 3 04/18/2016 Active LANCETS 33G TIMES A DAY MISCIndications: (DX: E11.65) Type 2 diabetes mellitus with complication, with long-term current use of insulin ([facility]) ONETOUCH ULTRA BLUE USE TO TEST UP 100 strip 4 06/27/2016 Active test TO THREE TIMES stripIndications: A DAY (DX: Uncontrolled type 2 E11.65) diabetes mellitus with diabetic polyneuropathy, with long-term current use of insulin ([facility]) venlafaxine Take 1 capsule 30 capsule 4 08/05/2016 Active (EFFEXOR-XR) 150 MG (150 mg total) 24 hr capsule by mouth daily. Insulin USE TWO TIMES 180 each 3 08/07/2016 Active Syringe-Needle DAILY FOR U-100 (B-D INS SYR LANTUS ULTRAFINE 1CC/30G) INJECTIONS 30G X 1/2" 1 ML MISCIndications: Type 2 diabetes mellitus with complication, with long-term current use of insulin ([facility]) tamsulosin (FLOMAX) Take 1 capsule [...] polyneuropathy, with long-term current use of insulin ([facility]) clonazePAM TAKE ONE TABLET 28 [...] Active Problems [facility]ination [facility] Problem Noted Date Late onset Alzheimer's disease with behavioral disturbance 01/13/2017 Last Assessment & Plan: Recent behaviors with anger outbursts and disruptive behaviors. Start Zyprexa as ordered. Consult Dr Harrington. Notify office of continued or worsened behaviors. Hold plan to discharge at this time. Type 2 diabetes mellitus without complication, with long-term current use of insulin ([facility]) Last Assessment & Plan: Blood sugars are overall elevated. Increase Lantus insulin to 22 units twice daily. Send blood sugar trends to office after one to weeks. Functional urinary incontinence 10/15/2016 Chronic systolic heart failure (HCC) 10/27/2015 Last Assessment & Plan: Stable. Continue current management. Coronary artery disease involving coronary bypass graft of [place] heart 2015 without angina pectoris Non-ST elevation [place] (NSTEMI) ([facility]) 10/27/2015 Alzheimer's disease 05/05/2015 Mixed hyperlipidemia Essential hypertension Last Assessment & Plan: Blood pressure is currently controlled. Continue current management with carvedilol, lisinopril. assisted (current) use of anticoagulants Atrial fibrillation ([facility]) Last Assessment & Plan: Currently rate controlled. Not on anticoagulation due to high fall risk. Continue same. 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 ) 01/20/2017 Orders Only Link, Onbase 01/16/2017 Refill Madison Manjarrez, Medication Refill CURTAIN WORKER 01/15/2017 Telephone Madison Manjarrez, Medication Management CURTAIN WORKER (refill resend) 01/14/2017 Refill Madison Manjarrez, Medication Refill CURTAIN WORKER 01/13/2017 Shelter Madison Manjarrez, Chronic systolic heart CURTAIN WORKER failure (HCC) (Primary Dx);Late onset Alzheimer's disease with behavioral disturbance;Chronic atrial fibrillation (HCC);Essential hypertension;Type 2 diabetes mellitus without complication, with long-term current use of insulin ([facility]);Uncontrolled type 2 diabetes mellitus with diabetic polyneuropathy, with long-term current use of insulin ([facility]) 01/13/2017 Abstract Madison Manjarrez, CURTAIN WORKER 01/13/2017 Telephone Fell, [place] Elizabeth, Medication Management CURTAIN WORKER (review of medication per [facility] pharmacy) 01/13/2017 Refill Fell, [place] Elizabeth, Medication Refill CURTAIN WORKER 01/13/2017 Telephone Fell, [place] Elizabeth, Calling For Orders CURTAIN WORKER (increased agitation) 01/07/2017 Telephone Fell [place] Elizabeth, Results (lab completed at [facility]) 12/30/2016 Shelter Fell, [place] Elizabeth, Acute cystitis without CURTAIN WORKER hematuria (Primary Dx);Acute right hemiparesis (HCC);Chronic systolic heart failure (HCC);Late onset Alzheimer's disease with behavioral disturbance;Essential hypertension;Type 2 diabetes mellitus without complication, with long-term current use of insulin (HCC) 12/26/2016 Orders Only Link, Onbase 12/24/2016 Telephone Fell [place] Elizabeth, Calling For Orders CURTAIN WORKER (medication review) 12/24/2016 Telephone Josseline [place] Elizabeth, Calling For Orders CURTAIN WORKER (requesting lab) 12/23/2016 [facility] Scan Link, Onbase 12/23/2016 Telephone Josseline [place] Elizabeth, Calling For Orders CURTAIN WORKER (witnessed floor) 12/20/2016 Telephone Hussain Hsu MD Calling With Results 12/20/2016 Refill Madison Manjarrez Elizabeth, Medication Refill CURTAIN WORKER 12/19/2016 Telephone Coco Manjarrezl Elizabeth, Calling For Orders CURTAIN WORKER (medication management) 12/17/2016 Orders Only Hussain Hsu MD Acute right hemiparesis (HCC) (Primary Dx) 12/16/2016 Office Visit Hussain Hsu MD Acute right hemiparesis (HCC) (Primary Dx);Chronic systolic heart failure (HCC);Late onset Alzheimer's disease with behavioral disturbance;Essential hypertension;Chronic atrial fibrillation (HCC);Dysthymic disorder;Uncontrolled type 2 diabetes mellitus with diabetic polyneuropathy, with long-term current use of insulin (HCC);Coronary artery disease involving coronary bypass graft of [place] heart without angina pectoris 12/16/2016 Telephone Josseline, [place] Elizabeth, Results (lab results CURTAIN WORKER reviewed) 12/13/2016 Telephone Josseline [place] Elizabeth, Calling For Orders CURTAIN WORKER 12/12/2016 [facility] Scan Link, Onbase 12/12/2016 Abstract Hussain Hsu MD 12/11/2016 Refill JosselineMadisongy, Medication Refill CURTAIN WORKER 12/05/2016 Refill Hussain Hsu MD Medication Refill [...]
--- OUTSIDE RECORDS SUMMARY | 2017-02-04 14:17 | External Medical Summary | Encounter Summary ---
:1935 Author Organization [facility] Address [address] [address] Phone Care Team Providers Name Role Phone Unavailable Primary Care Provider Unavailable Reason for Visit Reason Comments Calling For Orders Encounter Details Date Type Department Care Team Description 01/28/2017 Telephone Mendez Livingston`Jose Juan Internal Hussain Hsu MD Calling For Orders Medicine - [place] [address] [place] [address] [place] [phone] [id number] Social History Tobacco Use Types Packs/Day [...]
--- OUTSIDE RECORDS SUMMARY | 2017-02-04 14:18 | External Medical Summary | Encounter Summary ---
:1935 Author Organization [facility] Address [address] [address] Phone Care Team Providers Name Role Phone Unavailable Primary Care Provider Unavailable Reason for Visit Reason Comments Calling For Orders Encounter Details Date Type Department Care Team Description 01/27/2017 Telephone Mendez Livingston`Jose Juan Internal Hussain Hsu MD Calling For Orders Medicine - [place] [address] [place] [address] [place] [phone] [id number] Social History Tobacco Use Types Packs/Day [...]
--- OUTSIDE RECORDS SUMMARY | 2017-02-04 14:18 | External Medical Summary | Encounter Summary ---
:1935 Author Organization [facility] Address [address] [address] Phone Care Team Providers Name Role Phone Unavailable Primary Care Provider Unavailable Reason for Visit Reason Comments Calling For Orders Encounter Details Date Type Department Care Team Description 01/24/2017 Telephone Cotton Miki`Jose Juan Internal Hussain Hsu MD Calling For Orders Medicine - [place] [address] [place] [address] [place] [phone] [id number] Social History Tobacco Use Types Packs/Day [...]
--- OUTSIDE RECORDS SUMMARY | 2017-02-04 14:19 | External Medical Summary | Encounter Summary ---
:1935 Author Organization [facility] Address [address] [address] Phone Care Team Providers Name Role Phone Unavailable Primary Care Provider Unavailable Reason for Visit Reason Comments Acute Visit Agitation Encounter Details Date Type Department Care Team Description 01/22/2017 [facility] Cotton O`Jose Juan Internal Madison Manjarrez Late onset Alzheimer's Medicine - Devante Johnson APRN disease with behavioral [address] disturbance ([place] [address] [place], [place] Dx) [phone] [id number] Social History Tobacco Use Types Packs/Day [...] may be different from the original. Formerly [facility], [facility] Post-Acute Care Progress Note 01/22/2017 Name: Raffi Sandoval : 1935 Facility: 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 Atrial fibrillation ([facility]) Dysthymic disorder Other chronic pain Type 2 diabetes mellitus, uncontrolled ([facility]) Obesity, unspecified Alzheimer's disease Chronic systolic heart failure ([facility]) Coronary artery disease involving coronary bypass graft of [place] heart without angina pectoris Non-ST elevation [place] (NSTEMI) ([facility]) 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 ankle pain; at: [facility]; Keith Vazquez MD; [facility] Non-ST elevation [place] (NSTEMI) ([facility]) 10/27/2015 Current Outpatient Prescriptions: allopurinol (ZYLOPRIM) 300 MG tablet, Take 1 tablet (300 mg total) by mouth daily., Disp: 30 tablet, Rfl: 5 aspirin EC (ECOTRIN) 81 MG EC tablet, One po daily, Disp: 0, Rfl: 0 Blood Glucose Monitoring Suppl [facility], Glucose Monitor: Use to check blood glucose [...]
--- OUTSIDE RECORDS SUMMARY | 2017-02-04 14:21 | External Medical Summary | Encounter Summary ---
:1935 Author Organization [facility] Address [address] [address] Phone Care Team Providers Name Role Phone Unavailable Primary Care Provider Unavailable Reason for Visit Reason Comments Results faxed to correction. Encounter Details Date Type Department Care Team Description 01/21/2017 Telephone Mendez Guerrero Internal Madison Manjarrez, Results ( faxed to [facility]. ) [address] [place] [address] [place] [address] Social History Tobacco Use Types Packs/Day Years Used Date Former Smoker Smokeless Tobacco: Never Used Comments: Quit smoking: Year stopped 1997/Number of yrs: 35.00/Packs per day: 2.00/Pac* Alcohol Use Drinks/Week oz/Week Comments No Alcoholic Drinks/day: Never Sex Assigned at Date Recorded Not on file as of this encounter Plan of Treatment Pending Results Name Priority Associated Diagnoses Date/Time EXTERNAL LAB TEST 01/19/2017 12:00 AM CUSTOM CLOTHIER as of this encounter Goals Patient Goal Type Goal Recent Progress Patient-Stated? Author Weight Weight (lb) < 99.3 kg (219 lb) No Hussain Hsu K, 200 (10/15/2016 11:21 MD RUIZ CDT) as of this encounter Visit Diagnoses Not on filein this encounter
--- OUTSIDE RECORDS SUMMARY | 2017-02-04 14:23 | External Medical Summary | Encounter Summary ---
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 Author Weight Weight (lb) < 99.3 kg (219 lb) Hussain Coulter, 200 (10/15/2016 11:21 MD RUIZ CDT) as of this encounter Visit Diagnoses Not on filein this encounter
--- OUTSIDE RECORDS SUMMARY | 2017-02-04 14:24 | External Medical Summary | Encounter Summary ---
:1935 Author Organization [facility] Address [address] [address] Phone Care Team Providers Name Role Phone Unavailable Primary Care Provider Unavailable Reason for Visit Reason Comments Medication Refill Encounter Details Date Type Department Care Team Description 01/16/2017 Refill Cotton O`Jose Juan Internal Madison Manjarrez, Medication Refill Medicine - [place] NIGHT WAREHOUSE MANAGER [address] [place] [address] [place], [place] [id number] Social History Tobacco Use Types Packs/Day Years [...]
--- OUTSIDE RECORDS SUMMARY | 2017-02-04 14:25 | External Medical Summary | Encounter Summary ---
:1935 Author Organization [facility] Address [address] [address] Phone Care Team Providers Name Role Phone Unavailable Primary Care Provider Unavailable Reason for Visit Reason Comments Medication Management refill resend Encounter Details Date Type Department Care Team Description 01/15/2017 Telephone Mendez Guerrero Internal Madison Manjarrez, Medication Management Medicine - [place] FOOD PACKER (refill resend) [address] [place] [address] [place] [id number] Social History Tobacco Use Types Packs/Day Years [...]
--- OUTSIDE RECORDS SUMMARY | 2017-02-04 14:26 | External Medical Summary | Encounter Summary ---
:1935 Author Organization [facility] Address [address] [address] Phone Care Team Providers Name Role Phone Unavailable Primary Care Provider Unavailable Reason for Visit Reason Comments Medication Management review of medication per [facility] Encounter Details Date Type Department Care Team Description 01/13/2017 Telephone Madison Samuel, Medication Management Medicine - [place] ROJO (review of medication [address] per [facility]) [place] [address] [place] [address] Social History Tobacco Use Types [...]
--- OUTSIDE RECORDS SUMMARY | 2017-02-04 14:26 | External Medical Summary | Encounter Summary ---
:1935 Author Organization [facility] Address [address] [address] Phone Care Team Providers Name Role Phone Unavailable Primary Care Provider Unavailable Reason for Visit Reason Comments Medication Refill Encounter Details Date Type Department Care Team Description 01/14/2017 Refill Cotton O`Jose Juan Internal Madison Manjarrez, Medication Refill Medicine - [place] BATTERY PLATE ASSEMBLER [address] [place] [address] [place], [place] [address] Social History Tobacco Use Types Packs/Day Years [...]
--- OUTSIDE RECORDS SUMMARY | 2017-02-04 14:27 | External Medical Summary | Encounter Summary ---
:1935 Author Organization [facility] Address [address] [address] Phone Care Team Providers Name Role Phone Unavailable Primary Care Provider Unavailable Reason for Visit Reason Comments Calling For Orders increased agitation Encounter Details Date Type Department Care Team Description 01/13/2017 Telephone Mendez Guerrero Internal Madison Manjarrez, Calling For Orders Medicine - [place] DARREL (increased agitation) [address] [place] [address] [place], [place] [id number] Social History Tobacco Use Types Packs/Day Years [...]
--- OUTSIDE RECORDS SUMMARY | 2017-02-04 14:27 | External Medical Summary | Encounter Summary ---
:1935 Author Organization [facility] Address [address] [address] Phone Care Team Providers Name Role Phone Unavailable Primary Care Provider Unavailable Reason for Visit Reason Comments Medication Refill Encounter Details Date Type Department Care Team Description 01/13/2017 Refill Cotton O`Jose Juan Internal Madison Manjarrez, Medication Refill Medicine - [place] FMD TEACHER [address] [place] [address] [place], [place] [address] Social History Tobacco Use Types Packs/Day Years [...]
--- OUTSIDE RECORDS SUMMARY | 2017-02-04 14:28 | External Medical Summary | Encounter Summary ---
:1935 Author Organization [facility] Address [address] [address] Phone Care Team Providers Name Role Phone Unavailable Primary Care Provider Unavailable Reason for Visit Reason Comments Monthly Follow Up Encounter Details Date Type Department Care Team Description 01/13/2017 Mcfp Cotton O`Jose Juan Internal Madison Manjarrez Chronic systolic heart Medicine - [place] Johnson, CUSTOMS INVESTIGATOR failure (HCC) (Primary [address] [place]x);[place] [address] [place], [place] Alzheimer's disease [phone] with behavioral [phone] disturbance;Chronic [phone] atrial fibrillation (Fax) (HCC);Essential hypertension;Type 2 diabetes [...] of this encounter Progress Notes Madison Manjarrez, CUSTOMS INVESTIGATOR - 01/13/2017 9:40 AM CSTFormatting of this note may be different from the original. [facility] Progress Note 01/13/2017 Name: Raffi Sandoval : 1935 Facility: [facility] Type of Visit: 30 day Raffi Sandoval is a 81 y.o. male who had concerns including Monthly Follow Up. HPI/Current Issues: Raffi is seen this today for routine mcc follow-up. 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 Atrial fibrillation ([facility]) Dysthymic disorder Other chronic pain Type 2 diabetes mellitus, uncontrolled ([facility]) Obesity, unspecified Alzheimer's disease Chronic systolic heart failure ([facility]) Coronary artery disease involving coronary bypass graft of [place] heart without angina pectoris Non-ST elevation PR (NSTEMI) ([facility]) 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 ankle pain; at: [facility]; Keith Vazquez MD; HOSP Non-ST elevation PR (NSTEMI) ([facility]) 10/27/2015 Current Outpatient Prescriptions: allopurinol (ZYLOPRIM) 300 MG tablet, Take 1 tablet (300 mg total) by mouth daily., Disp: 30 tablet, Rfl: 5 aspirin EC (ECOTRIN) 81 MG EC tablet, One po daily, Disp: 0, Rfl: 0 Blood Glucose Monitoring Suppl [facility], Glucose Monitor: Use to check blood glucose [...] long-term current use of insulin ([facility]) Assessment & Plan: Blood sugars are overall elevated. Increase Lantus insulin to 22 units twice daily. Send blood sugar trends to office after one to weeks. 6. 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
--- OUTSIDE RECORDS SUMMARY | 2017-02-04 14:28 | External Medical Summary | Encounter Summary ---
:1935 Author Organization [facility] Address [address] [address] Phone Care Team Providers Name Role Phone Unavailable Primary Care Provider Unavailable Reason for Visit Reason Comments Acute Visit ER follow-up Encounter Details Date Type Department Care Team Description 12/30/2016 Detention Cotton O`Jose Juan Internal Madison Manjarrez Acute cystitis without Medicine - [place] Elizabeth, DOG OBEDIENCE INSTRUCTOR hematuria (Primary [address] [place]x);[place] [address] [place] hemiparesis [phone] (HCC);Chronic systolic [phone] heart failure [phone] (HCC);Late onset (Fax) Alzheimer's disease with behavioral disturbance;Essential hypertension;Type 2 diabetes mellitus without complication, with long-term current use of insulin ([facility]) Social History Tobacco Use Types Packs/Day Years Used Date Former Smoker Smokeless Tobacco: Never Used Comments: Quit smoking: Year stopped 1997/Number of yrs: 35.00/Packs per day: 2.00/Pac* Alcohol Use Drinks/Week oz/Week Comments No Alcoholic Drinks/day: Never Sex Assigned at Date Recorded Not on file as of this encounter Progress Notes Madison Manjarrez, DOG OBEDIENCE INSTRUCTOR - 12/30/2016 10:20 AM CDTFormatting of this note may be different from the original. 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 ankle pain; at: [facility]; Keith Vazquez MD; HOSP Non-ST elevation DC (NSTEMI) ([facility]) 10/27/2015 Current Outpatient Prescriptions: allopurinol (ZYLOPRIM) 300 [...]
--- OUTSIDE RECORDS SUMMARY | 2017-02-04 14:28 | External Medical Summary | Encounter Summary ---
:1935 Author Organization [facility] Address [address] [address] Phone Care Team Providers Name Role Phone Unavailable Primary Care Provider Unavailable Reason for Visit Reason Comments Results lab completed at [facility] Encounter Details Date Type Department Care Team Description 01/07/2017 Telephone Mendez Guerrero Internal Madison Manjarrez, Results (lab completed Medicine - [place] NEGATIVE TURNER APPRENTICE at [facility] [address] [facility]) [place] [address] [place] [address] Social History Tobacco Use Types [...]
--- OUTSIDE RECORDS SUMMARY | 2017-02-04 14:29 | External Medical Summary | Encounter Summary ---
:1935 Author Organization [facility] Address [address] [address] Phone Care Team Providers Name Role Phone Unavailable Primary Care Provider Unavailable Encounter Details Date Type Department Care Team Description 12/26/2016 Orders Only MULTIPLE TESTS Link, Onbase [place], [place] Social History Tobacco Use Types Packs/Day [...]
--- OUTSIDE RECORDS SUMMARY | 2017-02-04 14:30 | External Medical Summary | Encounter Summary ---
:1935 Author Organization [facility] Address [address] [address] Phone Care Team Providers Name Role Phone Unavailable Primary Care Provider Unavailable Reason for Visit Reason Comments Calling For Orders medication review Encounter Details Date Type Department Care Team Description 12/24/2016 Telephone Mendez Guerrero Internal Madison Manjarrez, Calling For Orders Medicine - [place] ROJO (medication review) [address] [place] [address] [place] [phone] Social History Tobacco Use Types Packs/Day Years [...]
--- OUTSIDE RECORDS SUMMARY | 2017-02-04 14:31 | External Medical Summary | Encounter Summary ---
:1935 Author Organization [facility] Address [address] [address] Phone Care Team Providers Name Role Phone Unavailable Primary Care Provider Unavailable Reason for Visit Reason Comments Calling For Orders requesting lab Encounter Details Date Type Department Care Team Description 12/24/2016 Telephone Mendez Guerrero Internal Madison Manjarrez, Calling For Orders Medicine - [place] ROJO (requesting lab) [address] [place] [address] [place] [address] [place] [id number] Social History Tobacco Use Types Packs/Day Years [...]
--- OUTSIDE RECORDS SUMMARY | 2017-02-04 14:32 | External Medical Summary | Encounter Summary ---
:1935 Author Organization [facility] Address [address] [address] Phone Care Team Providers Name Role Phone Unavailable Primary Care Provider Unavailable Encounter Details Date Type Department Care Team Description 12/23/2016 On[facility] Scan MULTIPLE TESTS Link, Onbase [place], [place] Social History Tobacco Use Types Packs/Day [...]
--- OUTSIDE RECORDS SUMMARY | 2017-02-04 14:33 | External Medical Summary | Encounter Summary ---
:1935 Author Organization [facility] Address [address] [address] Phone Care Team Providers Name Role Phone Unavailable Primary Care Provider Unavailable Reason for Visit Reason Comments Calling For Orders witnessed floor Encounter Details Date Type Department Care Team Description 12/23/2016 Telephone Mendez Guerrero Internal Madison Manjarrez, Calling For Orders Medicine - [place] ROJO (witnessed floor) [address] [place] [address] [place] [address] [place] [phone] Social History Tobacco Use Types Packs/Day Years [...]
--- OUTSIDE RECORDS SUMMARY | 2017-02-04 14:34 | External Medical Summary | Encounter Summary ---
:1935 Author Organization [facility] Address [address] [place] [address] Phone Care Team Providers Name Role Phone Unavailable Primary Care Provider Unavailable Reason for Referral Imaging Prior Auth (Routine) Status Reason Specialty Diagnoses / Referred By Referred To Procedures Contact Contact Authorized Specialty Radiology Procedures Hussain Hsu, [facility] Required MRI Brain MD Radiology (without [address] contrast) [address] [place] [address] Reason for Visit Reason Comments Calling With Results Encounter Details Date Type Department Care Team Description 12/20/2016 Telephone Mendez O`Jose Juan Internal Hussain Hsu MD Calling With Results Medicine - [place] [address] [place] [address] [place], [place] [phone] Social History Tobacco Use Types Packs/Day [...]
--- OUTSIDE RECORDS SUMMARY | 2017-02-04 14:35 | External Medical Summary | Encounter Summary ---
:1935 Author Organization [facility] Address [address] [address] Phone Care Team Providers Name Role Phone Unavailable Primary Care Provider Unavailable Reason for Visit Reason Comments Medication Refill Encounter Details Date Type Department Care Team Description 12/20/2016 Refill Cotton O`Jose Juan Internal Madison Manjarrez, Medication Refill Medicine - [place] WIRE PREPARATION WORKER [address] [place] [address] [place], [place] [address] Social History Tobacco Use Types Packs/Day Years [...]
--- OUTSIDE RECORDS SUMMARY | 2017-02-04 14:35 | External Medical Summary | Encounter Summary ---
:1935 Author Organization [facility] Address [address] [address] Phone Care Team Providers Name Role Phone Unavailable Primary Care Provider Unavailable Reason for Visit Reason Comments Calling For Orders medication management Encounter Details Date Type Department Care Team Description 12/19/2016 Telephone Mendez Guerrero Internal Madison Manjarrez, Calling For Orders Medicine - [place] DARREL (medication management) [address] [place] [address] [place] [phone] Social History Tobacco Use Types Packs/Day Years [...]
--- OUTSIDE RECORDS SUMMARY | 2017-02-04 14:35 | External Medical Summary | Encounter Summary ---
:1935 Author Organization [facility] Address [address] [place] [address] Phone Care Team Providers Name Role Phone Unavailable Primary Care Provider Unavailable Encounter Details Date Type Department Care Team Description 12/17/2016 Orders Only Cotton O`Jose Juan Internal Hussain Hsu, Acute right hemiparesis Medicine - [place] DO ([facility]) (Primary Dx) [address] [place] [address] [place] [address] [address] [place] [phone] Social History Tobacco Use Types Packs/Day Years [...]
--- OUTSIDE RECORDS SUMMARY | 2017-02-04 14:36 | External Medical Summary | Encounter Summary ---
:1935 Author Organization [facility] Address [address] [address] Phone Care Team Providers Name Role Phone Unavailable Primary Care Provider Unavailable Reason for Visit Reason Comments Results lab results reviewed Encounter Details Date Type Department Care Team Description 12/16/2016 Telephone Mendez Guerrero Internal Madison Manjarrez, Results (lab results Medicine - [place] SCOUT PROFESSIONAL SPORTS reviewed) [address] [place] [address] [place], [place] [phone] Social History Tobacco Use Types Packs/Day Years [...]
--- OUTSIDE RECORDS SUMMARY | 2017-02-04 14:38 | External Medical Summary | Encounter Summary ---
:1935 Author Organization [facility] Address [address] [address] Phone Care Team Providers Name Role Phone Unavailable Primary Care Provider Unavailable Reason for Visit Reason Comments Other senior care face to face Other hospital follow up. 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 SUBJECTIVE Raffi Sandoval is a 81 y.o. male who presents For his first month skilled visit. He is staying at [facility] for skilled visit after a couple nights stay at [facility] in [place], [place]. He was very unhappy with his [...] skilled facility. He chose to come to [facility] since I'm his primary care physician. He [...] daily 0 0 Blood Glucose Monitoring Suppl [facility] Glucose Monitor: Use to check blood glucose [...] ULTRAFINE 1CC/30G) 30G X 1/2" 1 ML [facility] USE TWO TIMES DAILY FOR LANTUS INJECTIONS [...] 25 tablet 1 ONETOUCH DELICA LANCETS 33G [facility] USE UP TO THREE TIMES A DAY [...] to usual. 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 Acute right hemiparesis ([facility]) MRI of the brain will be ordered to rule out stroke. 2. Chronic systolic heart failure ([facility]) Continue same medications. 3. Late onset Alzheimer's disease with behavioral disturbance Obviously this complicates his other medical issues 4. Essential hypertension Adequate control 5. Chronic atrial fibrillation ([facility]) Continue rate control. Because of his multiple falls he has not been anticoagulated. His of course puts him at increased risk of stroke, making an MRI even more. 6. Dysthymic disorder Continue supportive care and environment. 7. 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 Coronary artery disease involving coronary bypass graft of [place] heart without angina pectoris No active symptoms 1. Patient expressed understanding and agreement with plan. Electronically signed by: Hussain Hsu MD, 12/16/2016 8:58 PM Senait Ramírez MA - 12/16/2016 10:00 AM CDTPatient here for a hospital follow up and a face to face for going to a senior care. PT's MAR doesnot have his pain medication [...] artery disease involving coronary bypass graft of [place] heart without angina pectoris in this encounter
--- OUTSIDE RECORDS SUMMARY | 2017-02-04 14:39 | External Medical Summary | Encounter Summary ---
:1935 Author Organization [facility] Address [address] [address] Phone Care Team Providers Name Role Phone Unavailable Primary Care Provider Unavailable Reason for Visit Reason Comments Calling For Orders Encounter Details Date Type Department Care Team Description 12/13/2016 Telephone Madison Samuel, Calling For Orders Medicine - [place] TRANSPORT ENGINEER [address] [place] [address] [place], [place] [phone] Social History Tobacco Use Types Packs/Day Years [...]
--- OUTSIDE RECORDS SUMMARY | 2017-02-04 14:39 | External Medical Summary | Encounter Summary ---
:1935 Author Organization [facility] Address [address] [address] Phone Care Team Providers Name Role Phone Unavailable Primary Care Provider Unavailable Encounter Details Date Type Department Care Team Description 12/12/2016 [facility] Scan MULTIPLE TESTS Link, Onbase [place], [place] Social History Tobacco Use Types Packs/Day [...]
--- OUTSIDE RECORDS SUMMARY | 2017-02-04 14:40 | External Medical Summary | Encounter Summary ---
:1935 Author Organization [facility] Address [address] [place] [address] Phone Care Team Providers Name Role Phone Unavailable Primary Care Provider Unavailable Encounter Details Date Type Department Care Team Description 12/12/2016 Abstract Mendez Guerrero Internal Hussain Hsu MD Medicine - [place] [address] [place] [address] [place] [address] Social History Tobacco Use Types Packs/Day Years Used Date Former Smoker Smokeless Tobacco: Never Used Comments: Quit smoking: Year stopped 1997/Number of yrs: 35.00/Packs per day: 2.00/Pac* Alcohol Use Drinks/Week oz/Week Comments No Alcoholic Drinks/day: Never Sex Assigned at Date Recorded Not on file as of this encounter Progress Notes Senait Ramírez, RON - 12/12/2016 8:42 AM CDTPatient admitted to group home. Updated medication list per group home MAR.in this encounter Plan of Treatment Not on fileas of this encounter Goals Patient Goal Type Goal Recent Progress Patient-Stated? Author Weight Weight (lb) < 99.3 kg (219 lb) No Hussain Hsu, 200 (10/15/2016 11:21 MD AM CDT) as of this encounter Visit Diagnoses Not on filein this encounter
--- OUTSIDE RECORDS SUMMARY | 2017-02-04 14:41 | External Medical Summary | Encounter Summary ---
:1935 Author Organization [facility] Address [address] [address] Phone Care Team Providers Name Role Phone Unavailable Primary Care Provider Unavailable Reason for Visit Reason Comments Medication Refill Encounter Details Date Type Department Care Team Description 12/05/2016 Refill Cotton O`Jose Juan Internal Hussain Hsu MD Medication Refill Medicine - [place] [address] [place] [address] [place], [place] [phone] Social History Tobacco Use Types Packs/Day [...]
--- OUTSIDE RECORDS SUMMARY | 2017-02-04 14:41 | External Medical Summary | Encounter Summary ---
:[address] [facility] Address [address] [address] Phone Care Team Providers Name Role Phone Unavailable Primary Care Provider Unavailable Reason for Visit Reason Comments Medication Refill Encounter Details Date Type Department Care Team Description 12/11/2016 Refill Cotton O`Jose Juan Internal Madison Manjarrez, Medication Refill Medicine - [place] [employer] [address] [place] [address] [place], [place] [id number] Social History Tobacco Use Types Packs/Day Years [...]
--- OUTSIDE RECORDS SUMMARY | 2017-02-04 14:42 | External Medical Summary ---
[...] Medications Results No Known Results Summary Purpose AudioBooinicalUskape Submission
--- OUTSIDE RECORDS SUMMARY | 2017-02-04 14:42 | External Medical Summary ---
[...] Date Status Dosage System Date Clonazepam NDC 89190-89 1 MG Orally Once 1 tablet at 33-01 a day bedtime Plavix NDC 37393-83 75 MG Orally 1 tablet 03-99 Once a day Tamsulosin HCl NDC 44907-60 0.4 MG Orally 1 capsule 38-01 Once a day Nexium NDC 90747-58 40 MG Orally 1 capsule 40-31 Once a day Lisinopril NDC 55835-78 2.5 MG Orally 1 tablet at 65-01 Once a day bedtime Furosemide NDC 79816-22 40 MG Orally 1 tablet 99-25 Once a day Venlafaxine HCl NDC 66505-02 150 MG Orally 1 capsule ER 86-05 Once a day with food Lantus NDC 33599-28 100 UNIT/ML not defined 20-33 Subcutaneous Potassium NDC 15193-50 10 MEQ Orally 2 tablet Chloride ER 43-00 Once a day with food Lovastatin NDC 53808-24 20 MG Orally 1 tablet 76-06 Once a day with a meal Oxycodone HCl NDC 30514-55 5 MG Orally 1 tablet as 76-11 every 6 hrs needed Nitrostat [facility] 26735-95 0.4 MG not defined 18-13 Sublingual prn Aspirin [facility] 43298-25 81 MG Orally 1 tablet 74-68 Once a day Allopurinol [facility] 91069-28 300 MG Orally 1 tablet 81-01 Once a day Carvedilol [facility] 35481-14 12.5 MG Orally 1/2 tablet 95-01 Twice a day Procedures Procedure Coding System Code Date Office Visit, Est Pt., Level 4 CPT-4 00661 Oct 30, 2015 Vital Signs Date/Time: Oct 30, 2015 BMI 44.13 Index Weight 226 lbs Height 5'5 in Cardiac Monitoring Heart Rate 105 /min Oximetry 96 % Blood Pressure Diastolic 58 mm Hg Blood Pressure Systolic 100 mm Hg Results No Known Results Summary Purpose eClinicalWorks Submission
--- OUTSIDE RECORDS SUMMARY | 2017-02-04 14:42 | External Medical Summary | Encounter Summary ---
:1935 Author Organization [facility] Address [address] [address] Phone Care Team Providers Name Role Phone Unavailable Primary Care Provider Unavailable Reason for Visit Reason Comments Medication Refill Encounter Details Date Type Department Care Team Description 11/05/2016 Refill [place] O`Jose Juan Internal Hussain Hsu MD Medication Refill Medicine - [place] [address] [place] [address] [place], [place] [phone] Social History Tobacco Use Types Packs/Day [...]
[2017-02-04] MEDS ORDERED: ALBUTEROL/IPRATROPIUM 2.5mg-0.5mg/3ml NEB AEROSOL SCH (15:00)
[2017-02-04] MEDS ORDERED: LORazepam 0.5 MG TABLET PO PRN (15:34)
[2017-02-04] MEDS: ACETAMINOPHEN 325 MG TABLET PO SCH ×2 (16:49→20:20)
[2017-02-04] MEDS: CARVEDILOL 6.25 MG TABLET PO SCH (16:53)
[2017-02-04] MEDS ORDERED: CARVEDILOL 6.25 MG TABLET PO SCH (17:30)
[2017-02-04] MEDS: RANITIDINE 150 MG TABLET PO SCH (20:19)
[2017-02-04] MEDS: HALOPERIDOL 1 MG TABLET PO SCH (20:20)
[2017-02-04] MEDS: ClonazePAM 0.5 MG TABLET PO SCH (20:20)
[2017-02-04] MEDS: LISINOPRIL 2.5 MG TABLET PO SCH (20:21)
[2017-02-04] MEDS: INSULIN GLARGINE 100unit/ml INJECTION SQ SCH (20:47)
[2017-02-04] MEDS ORDERED: HALOPERIDOL 1 MG TABLET PO SCH (21:00)
[2017-02-05] MEDS: ALBUTEROL/IPRATROPIUM 2.5mg-0.5mg/3ml NEB AEROSOL SCH ×5 (07:00→20:07)
[2017-02-05] MEDS: FUROSEMIDE 40 MG TABLET PO SCH (08:02)
[2017-02-05] MEDS: CARVEDILOL 6.25 MG TABLET PO SCH ×2 (08:02→17:05)
[2017-02-05] MEDS: HALOPERIDOL 1 MG TABLET PO SCH ×2 (08:03→20:43)
[2017-02-05] MEDS: RANITIDINE 150 MG TABLET PO SCH ×2 (08:03→20:44)
[2017-02-05] MEDS: ACETAMINOPHEN 325 MG TABLET PO SCH ×3 (08:03→20:43)
[2017-02-05] MEDS: TAMSULOSIN 0.4 MG CAPSULE PO SCH (08:03)
[2017-02-05] MEDS: CLOPIDOGREL 75 MG TABLET PO SCH (08:03)
[2017-02-05] MEDS: NICOTINE 7 MG PATCH TD SCH (08:04)
[2017-02-05] MEDS: ENOXAPARIN 40 MG/0.4 ML INJECTION SQ SCH (08:04)
[2017-02-05] MEDS: ALLOPURINOL 300 MG TABLET PO SCH (08:05)
[2017-02-05] MEDS: INSULIN GLARGINE 100unit/ml INJECTION SQ SCH ×2 (08:15→20:54)
[2017-02-05] MEDS: NICOTINE PATCH REMOVAL TD SCH (08:48)
[2017-02-05] MEDS: ASPIRIN *EC* 81 MG TABLET PO SCH (08:49)
[2017-02-05] MEDS ORDERED: NICOTINE 7 MG PATCH TD SCH (09:00)
[2017-02-05] MEDS ORDERED: NICOTINE PATCH REMOVAL TD SCH (09:00)
[2017-02-05] MEDS ORDERED: INSULIN ASPART 100unit/ml INJECTION SQ PRN (09:15)
--- NOTE | 2017-02-05 10:53 | History & Physical Report ---
History of Present Illness Date: 02/05/17 Chief complaint: delusions, aggressive behaviors HPI: Patient is an 81-year-old male who originally presented to our emergency department for clearance to [facility] on 01/[facility]. He had a stroke on December 05, and after a short hospital stay, was transferred to rehabilitation unit on December 08. He was transferred here due to increasing behavioral issues. Apparently, he became combative and aggressive to staff, throwing chairs and swinging equipment around the room. Prior to his stroke he was living with his daughter and grandson at their home in [place]. Grandson reports patient has dementia, but prior to his stroke, had no major behavioral issues other than "having a bad day" now and then. Patient was not cleared for [facility] and was admitted to acute medical floor due to finding of UTI. After admission, he was also found to be positive for rhinovirus. During his medical stay, he was kept on precautions for rhinovirus and received DuoNeb treatments and Acapella. His UTI was initially treated with ceftriaxone, and after sensitivities were resulted, was converted to cephalexin. He also presented with herpes zoster on the face which was treated with a course of valacyclovir. Psychiatry was consulted during his stay due to behavioral disturbances. Several medication changes were made. He did receive PRN Haldol for agitation. At this time he is medically stable and has been accepted to [facility] for continued monitoring and treatment of his behaviors. Review of Systems All systems PM: 10-point ROS was reviewed, no additional remarkable complaints except - Constitutional Constitutional: Present: headache(s) (not current, but states he gets "bad headaches" now and then) - Cardiovascular Cardiovascular: Present: chest pain (no pain now. Sharp chest pains 3 weeks ago. ) - Respiratory Respiratory: Present: cough - Gastrointestinal Gastrointestinal: Present: diarrhea (at times - due to IBS) - Musculoskeletal Musculoskeletal: Present: neck pain (chronic) - Psychiatric Psychiatric: Present: behavioral changes PFSH Medical History Cerebrovascular accident-residual right-sided weakness Dementia Congestive heart failure COPD Diabetes mellitus type 2, insulin requiring Hypertension Hyperlipidemia Coronary artery disease GERD BPH Osteoarthritis Hyperuricemia/gouty arthritis Depression/anxiety Surgical History: Left elbow replacement due to shatter injury, traumatic left thumb amputation, left knee replacement, CABG 3 Family History: non contributory - Social History Smoking status: Former smoker Substance use type: does not use Alcohol intake frequency: does not drink Household members: family (prior to stroke in Dec, lives with his daughter, grandson and grandson's girlfriend) Current occupational status: retired Social history: PCP - Dr Hussain Hsu ([phone]) Patient lived with daughter and grandson in [place] prior to Dec 05 when he had a stroke. Has been in [facility] in [place] (12/08/16 - ) Medications Home Medications Medication Instructions Recorded Confirmed Type Acetaminophen 650 mg PO TID 01/28/17 01/28/17 History Allopurinol [Zyloprim] 300 mg PO DAILY 01/28/17 01/28/17 History Aspirin *EC* [Ecotrin] 81 mg PO DAILY 01/28/17 01/28/17 History Clopidogrel Bisulfate [Clopidogrel] 75 mg PO DAILY 01/28/17 01/28/17 History Furosemide [Lasix] 40 mg PO DAILY 01/28/17 01/28/17 History Insulin Glargine [Lantus] 22 units SQ BID 01/28/17 01/28/17 History Lisinopril [Prinivil] 2.5 mg PO HS 01/28/17 01/28/17 History Potassium Chloride [K-Tab ER] 20 meq PO DAILY 01/28/17 01/28/17 History Ranitidine [Zantac] 150 mg PO BID 01/28/17 01/28/17 History Tamsulosin [Flomax] 0.4 mg PO DAILY 01/28/17 01/28/17 History Allergies Allergy/AdvReac Type Severity Reaction Status Date / Time pneumococcal vaccine Allergy Severe Swelling Verified 01/28/17 17:12 hydromorphone [From Dilaudid] Allergy Intermediate Hallucinati Verified 17:13 ng diazepam Allergy Unknown Verified 01/28/17 17:19 indomethacin Allergy Unknown Verified 01/28/17 17:19 Exam Vital Signs: Temperature 97.2 F 02/05/17 07:33 Pulse Rate 108 H 02/05/17 07:33 Respiratory Rate 18 02/05/17 07:33 Blood Pressure 136/76 02/05/17 07:33 Pulse Oximetry 96 02/05/17 07:33 Height/Weight/BMI: Height 1.65 m Weight 95.6 kg Body Mass Index 35.2 - Constitutional Present: no acute distress, well nourished, well developed - Routine HEENT Exam Head: Present: normocephalic, atraumatic Eye: Present: EOMI, PERRL ENT: Present: mucous membranes moist, oropharynx clear Comments: ptosis b/l R>L - Routine Neck Exam Present: supple. Absent: thyromegaly - Routine Respiratory Exam Present: decreased breath sounds, CTA bilaterally. Absent: wheezes Comments: coarse BS's RLL, clears with continued breathing - Routine Cardiovascular Exam Present: RRR. Absent: murmur - Routine Abdominal Exam Present: soft, normoactive bowel sounds, non distended. Absent: tenderness - Routine Extremities Exam Present: edema (trace R>L), normal capillary refill, amputation (L thumb) - Routine Skin Exam Present: dry, warm - Routine Neurological Exam Present: alert, moving all extremities, normal speech. Absent: facial asymmetry , tremors CN3-12 intact, Mild weakness on R compared to L on strength testing. Oriented to self - Routine Psychiatric Exam Present: normal affect, cooperative Results - Imaging and Cardiology Chest x-ray Additional comments: Date of Exam: 02/03/17 Indication: chest congestion PROCEDURE: XR chest 2V: Findings: The patient is status post median sternotomy. There is mild cardiomegaly. There is mild diffuse interstitial prominence without lobar consolidation or pleural effusion. There is a mildly tortuous descending thoracic aorta. Trachea is midline. Impression: Cardiomegaly with mild diffuse interstitial prominence which may represent chronic interstitial lung disease. No definite overt CHF. 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 Continue Acapella and Duoneb treatments for residual respiratory symptoms originally associated with rhinovirus. Patient is no longer contagious. Accuchecks ac, hs and prn. Continue insulin orders from acute admission. Continue routine medications for chronic medical problems. Patient code status is DNR. Care to return to PCP, Dr Hussain Hsu, upon dismissal. We will follow patient medically along with you throughout his stay. Thank you for the consult. Resuscitation Status: Do Not Resuscitate - Physician Narriative Physician: Anita Tse MD Narriative: 02/05/17 20:30 I have independently evaluated and examined this patient. I reviewed the chart, the patient's history, and the RISK CONTROL CONSULTANT/PA's documented findings as above. We discussed and formulated the assessment and plan as above with additions as below: Mr. Sandoval was resting in the day room when seen. He denied concerns reporting that his cough was better and he had no chest pain or nausea. He is right- handed and indicated minimal difficulty after stroke earlier this fall. He initially denied having any trouble walking or using a walker but admitted to using a walker when staff reminded him that the walker next to him was his. NAD, alert, pleasant Respirations nonlabored, basilar crackles, no wheezing Distant heart tones, regular rhythm EOMI, facial structure symmetric, tongue midline Slight decreased right pump operator byproducts relative to the left, no drift upper extremities, symmetric dorsiflexion/plantarflexion. Normal motor tone, no tremors Sensation intact to light touch/cold 4 extremities Medically stable. Chest x-ray of 02/03 reviewed by myself demonstrating cardiomegaly and prior CABG but no acute pulmonary pathology. EKG with sinus rhythm during acute stay. Laboratory data on 02/02 notable only for minor anemia and GFR of 71. Liver enzymes normal, TSH normal on 01/28. Continue supportive care, Plavix for stroke prevention. Unclear why patient is not on a statin. Hospital Course Summary Disclaimer: The visit summary below is not to be considered part of the above Progress Note. Hospital Course: 02/05/17 Hospitalist consult Agree with admission to [facility] for psychiatric evaluation and tx and to provide safe environment. Continue Acapella and Duoneb treatments for residual respiratory symptoms originally associated with rhinovirus. Patient is no longer contagious. Accuchecks ac, hs and prn. Continue insulin orders from acute admission. Continue routine medications for chronic medical problems. Patient code status is DNR. Care to return to PCP, Dr Hussain Hsu, upon dismissal. We will follow patient medically along with you throughout his stay. Thank you for the consult.
--- NOTE | 2017-02-05 20:15 | 24 Hour Neuropsychiatic Eval ---
Date of Admission: 02/04/17 13:30 Chief complaint: "I've got poison in my hand" History of Present Illness: Patient is an 81-year-old male who was admitted to [facility] on 02/04/17 due to continued agitation during his medical hospitalization. Per hospitalist: "Patient is an 81-year-old male who originally presented to our emergency department for clearance to [facility] on 01/28/17. He had a stroke on December 05, and after a short hospital stay, was transferred to rehabilitation unit on December 08. He was transferred here due to increasing behavioral issues. Apparently, he became combative and aggressive to staff, throwing chairs and swinging equipment around the room. Prior to his stroke he was living with his daughter and grandson at their home in [place]. Grandson reports patient has dementia, but prior to his stroke, had no major behavioral issues other than "having a bad day" now and then. Patient was not cleared for [facility] and was admitted to acute medical floor due to finding of UTI. After admission, he was also found to be positive for rhinovirus. During his medical stay, he was kept on precautions for rhinovirus and received DuoNeb treatments and Acapella. His UTI was initially treated with ceftriaxone, and after sensitivities were resulted, was converted to cephalexin. He also presented with herpes zoster on the face which was treated with a course of valacyclovir. Psychiatry was consulted during his stay due to behavioral disturbances." On interview, patient is quite pleasant and cooperative but actively hallucinating and believes there is poison in his hand, and that the bruise on his arm are due to poison as well. He gives me very inaccurate information throughout the interview (such as telling me he has 2 sons, when in reality he has 1 daughter). He denies SI, HI or AVH but has limited insight into symptoms/ hospitalization. Nursing staff report patient makes occasional inappropriate comments with them but he has not attempted to touch them inappropriately. No agitation since arrival on unit. Patient did sleep for only 2 hours last night. Reviewed: Home Medications, Allergies, Current Lab Data, Imaging Reports, Current EKG(s), Nursing Notes, Physician Consults [facility] Patient Stated Medical History Cerebrovascular Accident Yes Dementia Yes Cataracts Yes Congestive Heart Failure Yes Myocardial Infarction Yes Chronic Obstructive Pulmonary Yes Disease (COPD) Diabetes Mellitus Type 2 Yes Gastroesophageal Reflux Yes Disease Hx Benign Prostatic Yes Hyperplasia Hx Incontinence Yes Osteoarthritis Yes Clinic Medical History Urinary tract infection (Acute Medical) Dementia (Acute Medical) Dementia with behavioral disturbance (Acute Medical) Rhinovirus (Acute Medical) Delirium (Acute Medical) due to UTI Major neurocognitive disorder (Acute Medical) vascular etiology, moderate, with behavioral disturbance History of CVA (cerebrovascular accident) (Acute Medical) Type 2 diabetes mellitus (Acute Medical) COPD (chronic obstructive pulmonary disease) (Acute Medical) Hypertension (Acute Medical) Hyperlipidemia (Acute Medical) Congestive heart failure (Acute Medical) Surgical History: Left elbow replacement due to shatter injury, traumatic left thumb amputation, left knee replacement, CABG 3 Family History: Unobtainable from patient - Social History Smoking status: Former smoker Social history: PCP - Dr Hussain Hsu ([phone]) Patient lived with daughter and grandson in [place] prior to Dec 05 when he had a stroke. Has been in [facility] in [place] (12/08/16 - ) Strengths: Pleasant attitude, good verbal communication, family support as above Review of Systems ROS unobtainable: due to mental status - Constitutional Constitutional: Present: as per HPI - Integumentary/Breasts Integumentary: Present: other (bruises in various stages on arms) - Psychiatric Psychiatric: Present: behavioral changes, mood swings, visual hallucinations Mental Status Exam Vitals: Last Vital Signs Temp 97.2 F 02/05/17 15:00 Pulse 108 H 02/05/17 15:00 Resp 18 02/05/17 20:05 BP 102/64 02/05/17 15:00 Pulse Ox 91 02/05/17 15:00 Height: 1.65 m Weight: 95.6 kg - Mental Status Exam Muscle Strength/Tone: Normal Dressing: Casual Grooming: Fair Attitude: Cooperative Motor Activity: Fidgety Eye Contact: Good Speech: Slowed Volume: Loud Rhythm: Appropriate Rhythm Orientation: Disoriented to time, Disoriented to place, Disoriented to situation , Oriented to person Mood: Euthymic Affect: Relaxed (during interview - labile on medical floor) Rate of Thoughts: Delayed Thought Organization: Confused Associations: Illogical Abstract Reasoning: Impaired, concrete Thought Content: Delusions (about poison) Perception/Psychotic: Psychotic Current Hallucinations: Visual Language: Naming Impaired Fund of Knowledge: Poor fund of knowledge Memory: Poor-recent, Poor-remote Suicidal Ideation: Denies Homicidal Ideation: Denies Insight: Impaired Judgement: Impaired Impulse Control: Poor - Laboratory Laboratory Results - last 24 hr 02/04/17 02/05/17 02/05/17 20:30 05:12 09:48 Glucometer 133 98 150 02/05/17 14:05 Glucometer 149 Assessment and Plan (1) Major neurocognitive disorder Problem details: vascular etiology, moderate, with behavioral disturbance Current visit: No Status: Acute (2) COPD (chronic obstructive pulmonary disease) Current visit: No Status: Acute (3) Congestive heart failure Current visit: No Status: Acute (4) History of CVA (cerebrovascular accident) Current visit: No Status: Acute (5) Hyperlipidemia Current visit: No Status: Acute (6) Hypertension Current visit: No Status: Acute (7) Type 2 diabetes mellitus Current visit: No Status: Acute Admit to [facility] for evaluation and stabilization; maintain safety and elopement precautions. Will obtain further collateral history from family as patient is unreliable historian. Will review/order following labs (if not done): CBC, CMP, TSH, UA, Vitamin B12 and folate. Monitor mood and behavior on our unit before making further medication changes
[2017-02-05] MEDS: LISINOPRIL 2.5 MG TABLET PO SCH (20:43)
[2017-02-05] MEDS: ClonazePAM 0.5 MG TABLET PO SCH (20:43)
[2017-02-06] MEDS: ALBUTEROL/IPRATROPIUM 2.5mg-0.5mg/3ml NEB AEROSOL SCH ×4 (08:15→19:25)
[2017-02-06] MEDS: CARVEDILOL 6.25 MG TABLET PO SCH ×2 (09:21→17:29)
[2017-02-06] MEDS: ASPIRIN *EC* 81 MG TABLET PO SCH (09:22)
[2017-02-06] MEDS: ALLOPURINOL 300 MG TABLET PO SCH (09:22)
[2017-02-06] MEDS: ACETAMINOPHEN 325 MG TABLET PO SCH ×3 (09:22→20:51)
[2017-02-06] MEDS: CLOPIDOGREL 75 MG TABLET PO SCH (09:22)
[2017-02-06] MEDS: ENOXAPARIN 40 MG/0.4 ML INJECTION SQ SCH (09:22)
[2017-02-06] MEDS: HALOPERIDOL 1 MG TABLET PO SCH ×2 (09:23→20:50)
[2017-02-06] MEDS: RANITIDINE 150 MG TABLET PO SCH ×2 (09:23→20:50)
[2017-02-06] MEDS: TAMSULOSIN 0.4 MG CAPSULE PO SCH (09:23)
[2017-02-06] MEDS: FUROSEMIDE 40 MG TABLET PO SCH (09:23)
[2017-02-06] MEDS: NICOTINE 7 MG PATCH TD SCH (09:24)
[2017-02-06] MEDS: INSULIN GLARGINE 100unit/ml INJECTION SQ SCH ×3 (09:26→22:32)
[2017-02-06] MEDS: NICOTINE PATCH REMOVAL TD SCH (09:27)
--- NOTE | 2017-02-06 11:04 | Neuropsych Progress Note ---
[facility] Subjective Date: 02/06/17 - Sujective/Severity of Illness Medications: Acetaminophen (Tylenol) 650 mg PO TID [facility] Last Admin: 02/06/17 09:22 Dose: 650 mg Albuterol/Ipratropium (Duoneb) 3 ml AEROSOL RTQID [facility] Last Admin: 02/06/17 10:50 Dose: 3 ml Allopurinol (Zyloprim) 300 mg PO DAILY [facility] Last Admin: 02/06/17 09:22 Dose: 300 mg Aspirin (Ecotrin) 81 mg PO DAILY [facility] Last Admin: 02/06/17 09:22 Dose: 81 mg Carvedilol (Coreg) 6.25 mg PO BIDWM [facility] Last Admin: 02/06/17 09:21 Dose: 6.25 mg Cephalexin HCl (Keflex) 500 mg PO Q12H [facility] Last Admin: 02/06/17 09:21 Dose: 500 mg Clonazepam (Klonopin) 0.5 mg PO HS [facility] Last Admin: 02/05/17 20:43 Dose: 0.5 mg Clopidogrel Bisulfate (Plavix) 75 mg PO DAILY [facility] Last Admin: 02/06/17 09:22 Dose: 75 mg Enoxaparin Sodium (Lovenox) 40 mg SQ DAILY [facility] Last Admin: 02/06/17 09:22 Dose: 40 mg Furosemide (Lasix) 40 mg PO DAILY [facility] Last Admin: 02/06/17 09:23 Dose: 40 mg Haloperidol (Haldol) 1 mg PO BID [facility] Last Admin: 02/06/17 09:23 Dose: 1 mg Haloperidol (Haldol) 0.5 mg PO Q6H PRN PRN Reason: Agitation Last Admin: 02/05/17 14:56 Dose: 0.5 mg Haloperidol Lactate (Haldol) 0.5 mg IM Q4H PRN PRN Reason: Agitation Insulin Aspart (Novolog) 1 - 5 unit SQ SS PRN; Protocol PRN Reason: Hyperglycemia Insulin Glargine (Lantus) 22 unit SQ BID [facility] Last Admin: 02/06/17 09:26 Dose: 22 unit Lisinopril (Prinivil) 2.5 mg PO HS [facility] Last Admin: 02/05/17 20:43 Dose: 2.5 mg Lovastatin (Mevacor) 20 mg PO HS [facility] Menthol (Ricola Sf) 1 lozenge MM PRN PRN PRN Reason: Cough Nicotine (Nicoderm) 7 mg TD DAILY [facility] Last Admin: 02/06/17 09:24 Dose: 7 mg Nicotine (Nicotine Patch Removal) 1 removal TD DAILY [facility] Last Admin: 02/06/17 09:27 Dose: 1 removal Potassium Chloride (K-Dur) 20 meq PO WB [facility] Last Admin: 02/06/17 09:21 Dose: 20 meq Ranitidine HCl (Zantac) 150 mg PO BID [facility] Last Admin: 02/06/17 09:23 Dose: 150 mg Tamsulosin HCl (Flomax) 0.4 mg PO DAILY [facility] Last Admin: 02/06/17 09:23 Dose: 0.4 mg Venlafaxine HCl (Effexor Xr) 150 mg PO 09 [facility] Last Admin: 02/06/17 09:23 Dose: 150 mg Subjective: Patient seen and chart reviewed. Case discussed with treatment team. Patient is sleeping soundly at time of rounds; MSE below based on my last interaction with him. Patient has repeatedly denied any SI, HI or AVH. Patient has denied any adverse side effects related to psychotropic medications. Nursing staff report patient has been having continued VH and had a loud outburst yesterday yelling at a female LOFT WORKER APPRENTICE to get out of his room while he was taking a shower. He has continued to make occasional inappropriate comments to nursing staff but does not attempt to touch them inappropriately. Patient slept 6.25 hours overnight. VSS. Patient is eating well. Psychotropic PRNs required in the past 24 hours: Haldol 0.5mg PO x1 in afternoon for VH. Start Time: 07:20 Stop Time: 07:40 Mental Status Exam Vitals: Last Vital Signs Temp 97.0 F 02/06/17 09:00 Pulse 112 H 02/06/17 09:00 Resp 16 02/06/17 09:00 BP 123/74 02/06/17 09:00 Pulse Ox 93 02/06/17 09:00 Height: 1.65 m Weight: 95.6 kg - Mental Status Exam Muscle Strength/Tone: Normal Dressing: Casual Grooming: Fair Attitude: Cooperative Motor Activity: Fidgety Eye Contact: Good Speech: Slowed Volume: Loud Rhythm: Appropriate Rhythm Orientation: Disoriented to time, Disoriented to place, Disoriented to situation , Oriented to person Mood: Euthymic (labile affect) Rate of Thoughts: Delayed Thought Organization: Confused Associations: Illogical Abstract Reasoning: Impaired, concrete Thought Content: Delusions (about poison) Perception/Psychotic: Psychotic Current Hallucinations: Visual Language: Naming Impaired Fund of Knowledge: Poor fund of knowledge Memory: Poor-recent, Poor-remote Suicidal Ideation: Denies Homicidal Ideation: Denies Insight: Impaired Judgement: Impaired Impulse Control: Poor - Laboratory Laboratory Results - last 24 hr 02/05/17 02/05/17 02/06/17 14:05 20:48 06:22 Glucometer 149 135 72 Triglycerides Cholesterol LDL Cholesterol, Calc VLDL Cholesterol HDL Cholesterol Cholesterol/HDL Ratio 02/06/17 02/06/17 07:04 10:03 Glucometer 170 Triglycerides 138 Cholesterol 136 LDL Cholesterol, Calc 83.4 VLDL Cholesterol 27.6 HDL Cholesterol 25 L Cholesterol/HDL Ratio 5.4 H Assessment and Plan (1) 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 Hospital Course: 02/05/17 Hospitalist consult Agree with admission to [facility] for psychiatric evaluation and tx and to provide safe environment. Continue Acapella and Duoneb treatments for residual respiratory symptoms originally associated with rhinovirus. Patient is no longer contagious. Accuchecks ac, hs and prn. Continue insulin orders from acute admission. Continue routine medications for chronic medical problems. Patient code status is DNR. Care to return to PCP, Dr Hussain Hsu, upon dismissal. We will follow patient medically along with you throughout his stay. Thank you for the consult. 02/06/17 Psych: Will decrease Klonopin to 0.25mg PO q HS with plan to discontinue. Will discuss utility of statin with hospitalist given patient's age and mental condition, could be contributing to HS agitation. Will continue to monitor behavior and discuss with DPOA whether they would like to try Risperdal.
[2017-02-06] MEDS: ClonazePAM 0.5 MG TABLET PO SCH ×2 (18:11→20:51)
[2017-02-06] MEDS: LISINOPRIL 2.5 MG TABLET PO SCH (20:49)
[2017-02-06] MEDS ORDERED: LOVASTATIN 20 MG TABLET PO SCH (21:00)
[2017-02-07] MEDS: ALBUTEROL/IPRATROPIUM 2.5mg-0.5mg/3ml NEB AEROSOL SCH ×2 (07:35→10:40)
[2017-02-07] MEDS: INSULIN GLARGINE 100unit/ml INJECTION SQ SCH ×2 (08:25→20:58)
[2017-02-07] MEDS: NICOTINE 7 MG PATCH TD SCH (08:25)
[2017-02-07] MEDS: CARVEDILOL 6.25 MG TABLET PO SCH ×2 (08:26→17:43)
[2017-02-07] MEDS: ACETAMINOPHEN 325 MG TABLET PO SCH ×3 (08:26→20:05)
[2017-02-07] MEDS: ALLOPURINOL 300 MG TABLET PO SCH (08:26)
[2017-02-07] MEDS: RANITIDINE 150 MG TABLET PO SCH ×2 (08:26→20:05)
[2017-02-07] MEDS: FUROSEMIDE 40 MG TABLET PO SCH (08:26)
[2017-02-07] MEDS: CLOPIDOGREL 75 MG TABLET PO SCH (08:27)
[2017-02-07] MEDS: ENOXAPARIN 40 MG/0.4 ML INJECTION SQ SCH (08:27)
[2017-02-07] MEDS: TAMSULOSIN 0.4 MG CAPSULE PO SCH (08:27)
[2017-02-07] MEDS: HALOPERIDOL 1 MG TABLET PO SCH ×2 (08:27→20:07)
[2017-02-07] MEDS: NICOTINE PATCH REMOVAL TD SCH (08:28)
[2017-02-07] MEDS: ASPIRIN *EC* 81 MG TABLET PO SCH (08:28)
--- NOTE | 2017-02-07 10:06 | Progress Note ---
- Date 02/07/17 Subjective: Albert is seen this morning in follow up for his major neurocognitive disorder with behaviors. He is seen immediately upon his arrival into the dining room for breakfast. He appears to be in a good moods, smiling and making cheeky comments. He reports that he is feeling "frisky" today and continues to call the female patient dining with him, "his girl". Inappropriate comments are heard but he does not attempt to engage in physical contact or touch. He denies any other concerns or complaints including no chest pain, shortness of breath, abdominal pain, nausea, vomiting or dysuria. His appetite has been good and his bowels are moving. Weight appears stable. Blood sugar log reviewed and indicates variable blood sugars. Currently on Lantus 22 units BID. Blood pressure controlled. Some restlessness and agitation noted in evenings requiring PRN medications. Objective Vital signs: Temperature 97.0 F 02/07/17 08:36 Pulse Rate 104 H 02/07/17 08:36 Respiratory Rate 18 02/07/17 08:36 Blood Pressure 102/67 02/07/17 08:36 Pulse Oximetry 93 02/07/17 08:36 Height/Weight/BMI: Height 5 ft 5 in Weight 213 lb 2.992 oz Body Mass Index 35.2 Comments: Patient seen immediately upon arrival to dining room for breakfast. A&O to self and place. Making inappropriate comments to female patient at same dining table, calling her "his girl". - Constitutional Present: no acute distress, well nourished, well developed, obese, cooperative Comments: good spirits. - Routine HEENT Exam Head: Present: normocephalic, atraumatic Eye: Present: PERRL. Absent: conjunctival icterus ENT: Present: mucous membranes moist - Routine Respiratory Exam Present: CTA bilaterally. Absent: rales, respiratory distress, rhonchi - Routine Cardiovascular Exam Present: RRR, S1, S2 - Routine Abdominal Exam Present: soft, normoactive bowel sounds, non tender. Absent: guarding, firm - Routine Extremities Exam Present: edema (trace-1+), non tender, full ROM, pulses intact - Routine Back/Spine/Pelvis Exam Back/Spine: Present: full ROM. Absent: CVA tenderness, vertebral tenderness - Routine Musculoskeletal Exam Musculoskeletal: Present: moving extremities well - Routine Skin Exam Present: intact, dry, warm. Absent: jaundice Comments: afebrile - Routine Neurological Exam Present: alert (orientated to person and place), moving all extremities, normal speech. Absent: facial asymmetry - Routine Lymphatic Exam Lymphatic: Absent: lymphedema - Routine Psychiatric Exam Present: normal affect, cooperative Comments: inappropriate comments to female staff and residents; no attempts at physical contact or touch noted. 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 Continues to make inappropriate comments to female staff and patients but does not attempt physical contact or touch. Continue psychiatric care per team. Continue to provide safe and supportive environment, encouraging patient to engage in floor activities. Breathing remains unlabored. Continue Acapella and Duoneb treatments for residual respiratory symptoms originally associated with rhinovirus. Patient is no longer contagious and lungs clear to auscultation on exam. Blood sugars have been variable. Currently on Lantus 22 units BID with SSI as needed. Continue to monitor blood sugars closely. Will consult dietary for additional diet recommendations. Will check A1c for better evaluation of glucose control. Continue routine medications for chronic medical problems. Blood pressure controlled. Continue Lasix 40mg daily and monitor fluid status and daily weight. B12 was found to be low normal at 333. Will initiate B12 supplementation daily and recommend recheck as outpatient to be followed by PCP. Concern statin was possibly contributing to evening agitation. Will hold during hospitalization to assess if behaviors improve. May need to consider alterative cholesterol treatment such as niacin or gemfibrozil. Initial treatment for Proteus mirabilis UTI initiated on 01/29/17 with Rocephin and later changed to keflex. Treatment course complete and patient is asymptomatic. Will discontinue Keflex. Monitor closely for signs of recurrence of infection. DVT Prophylaxis: Lovenox GI Prophylaxis: Rantidine Resuscitation Status: Do Not Resuscitate - Time spent with patient Time with patient PN: 35 minutes - Physician Narriative Physician: other (Dr. Missy Verduzco) Hospital Course Summary Disclaimer: The visit summary below is not to be considered part of the above Progress Note. Hospital Course: 02/05/17 Hospitalist consult Agree with admission to [facility] for psychiatric evaluation and tx and to provide safe environment. Continue Acapella and Duoneb treatments for residual respiratory symptoms originally associated with rhinovirus. Patient is no longer contagious. Accuchecks ac, hs and prn. Continue insulin orders from acute admission. Continue routine medications for chronic medical problems. Patient code status is DNR. Care to return to PCP, Dr Hussain Hsu, upon dismissal. We will follow patient medically along with you throughout his stay. Thank you for the consult. 02/06/17 Psych: Will decrease Klonopin to 0.25mg PO q HS with plan to discontinue. Will discuss utility of statin with hospitalist given patient's age and mental condition, could be contributing to HS agitation. Will continue to monitor behavior and discuss with DPOA whether they would like to try Risperdal.
--- NOTE | 2017-02-07 11:46 | Neuropsych Progress Note ---
[facility] Subjective Date: 02/07/17 - Sujective/Severity of Illness Medications: Acetaminophen (Tylenol) 650 mg PO TID [facility] Last Admin: 02/07/17 08:26 Dose: 650 mg Albuterol/Ipratropium (Duoneb) 3 ml AEROSOL RTQID [facility] Last Admin: 02/07/17 07:35 Dose: 3 ml Allopurinol (Zyloprim) 300 mg PO DAILY [facility] Last Admin: 02/07/17 08:26 Dose: 300 mg Aspirin (Ecotrin) 81 mg PO DAILY [facility] Last Admin: 02/07/17 08:28 Dose: 81 mg Carvedilol (Coreg) 6.25 mg PO BIDWM [facility] Last Admin: 02/07/17 08:26 Dose: 6.25 mg Cephalexin HCl (Keflex) 500 mg PO Q12H [facility] Stop: 02/07/17 23:59 Last Admin: 02/07/17 08:26 Dose: 500 mg Clonazepam (Klonopin) 0.25 mg PO HS [facility] Last Admin: 02/06/17 20:51 Dose: 0.25 mg Clopidogrel Bisulfate (Plavix) 75 mg PO DAILY [facility] Last Admin: 02/07/17 08:27 Dose: 75 mg Cyanocobalamin (Vit. B-12) 1,000 mcg PO DAILY [facility] Enoxaparin Sodium (Lovenox) 40 mg SQ DAILY [facility] Last Admin: 02/07/17 08:27 Dose: 40 mg Furosemide (Lasix) 40 mg PO DAILY [facility] Last Admin: 02/07/17 08:26 Dose: 40 mg Haloperidol (Haldol) 1 mg PO BID [facility] Last Admin: 02/07/17 08:27 Dose: 1 mg Haloperidol (Haldol) 0.5 mg PO Q6H PRN PRN Reason: Agitation Last Admin: 02/05/17 14:56 Dose: 0.5 mg Haloperidol Lactate (Haldol) 0.5 mg IM Q4H PRN PRN Reason: Agitation Insulin Aspart (Novolog) 1 - 5 unit SQ SS PRN; Protocol PRN Reason: Hyperglycemia Insulin Glargine (Lantus) 22 unit SQ BID [facility] Last Admin: 02/07/17 08:25 Dose: 22 unit Lisinopril (Prinivil) 2.5 mg PO HS [facility] Last Admin: 02/06/17 20:49 Dose: 2.5 mg Menthol (Ricola Sf) 1 lozenge MM PRN PRN PRN Reason: Cough Nicotine (Nicoderm) 7 mg TD DAILY [facility] Last Admin: 02/07/17 08:25 Dose: 7 mg Nicotine (Nicotine Patch Removal) 1 removal TD DAILY [facility] Last Admin: 02/07/17 08:28 Dose: 1 removal Potassium Chloride (K-Dur) 20 meq PO WB [facility] Last Admin: 02/07/17 08:26 Dose: 20 meq Ranitidine HCl (Zantac) 150 mg PO BID [facility] Last Admin: 02/07/17 08:26 Dose: 150 mg Tamsulosin HCl (Flomax) 0.4 mg PO DAILY [facility] Last Admin: 02/07/17 08:27 Dose: 0.4 mg Venlafaxine HCl (Effexor Xr) 150 mg PO 09 [facility] Last Admin: 02/07/17 08:27 Dose: 150 mg Subjective: Patient seen and chart reviewed. Case discussed with treatment team. Patient is sitting in dayroom on approach and enjoys socializing. He reports being in a good mood and feeling well physically. He believes his father is still alive and is taking care of his dogs. Patient has repeatedly denied any SI, HI or AVH. Patient has denied any adverse side effects related to psychotropic medications. Nursing staff report patient has occasional inappropriate comments but no inappropriate touching; patient has been pleasant and cooperative otherwise and adherent with meds. Patient slept 10.5 hours overnight. VSS. Patient is eating well. Psychotropic PRNs required in the past 24 hours: None. Start Time: 10:20 Stop Time: 10:40 Mental Status Exam Vitals: Last Vital Signs Temp 97.0 F 02/07/17 08:36 Pulse 104 H 02/07/17 08:36 Resp 18 02/07/17 08:36 BP 102/67 02/07/17 08:36 Pulse Ox 93 02/07/17 08:36 Height: 1.65 m Weight: 96.7 kg - Mental Status Exam Muscle Strength/Tone: Normal Dressing: Casual Grooming: Fair Attitude: Cooperative Motor Activity: Normal Eye Contact: Good Speech: Slowed Volume: Loud Rhythm: Appropriate Rhythm Orientation: Disoriented to time, Disoriented to place, Disoriented to situation , Oriented to person Mood: Euthymic (congruent affect) Rate of Thoughts: Delayed Thought Organization: Confused Associations: Illogical Abstract Reasoning: Impaired, concrete Thought Content: Normal Perception/Psychotic: Hx psychosis, 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 Language: Naming Impaired Fund of Knowledge: Poor fund of knowledge Memory: Poor-recent, Poor-remote Suicidal Ideation: Denies Homicidal Ideation: Denies Insight: Impaired Judgement: Impaired Impulse Control: Other (Limited - in context of sexual comments) - Laboratory Laboratory Results - last 24 hr 02/06/17 02/06/17 02/06/17 07:04 14:08 20:57 Glucometer 201 177 Vitamin B12 333 Folate 11.5 02/07/17 06:23 Glucometer 132 Vitamin B12 Folate Assessment and Plan (1) 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 Hospital Course: 02/05/17 Hospitalist consult Agree with admission to [facility] for psychiatric evaluation and tx and to provide safe environment. Continue Acapella and Duoneb treatments for residual respiratory symptoms originally associated with rhinovirus. Patient is no longer contagious. Accuchecks ac, hs and prn. Continue insulin orders from acute admission. Continue routine medications for chronic medical problems. Patient code status is DNR. Care to return to PCP, Dr Hussain Hsu, upon dismissal. We will follow patient medically along with you throughout his stay. Thank you for the consult. 02/06/17 Psych: Will decrease Klonopin to 0.25mg PO q HS with plan to discontinue. Will discuss utility of statin with hospitalist given patient's age and mental condition, could be contributing to HS agitation. Will continue to monitor behavior and discuss with DPOA whether they would like to try Risperdal. 02/07/17 Psych: Continue current care; staff to try interventions to minimize inappropriate sexual behavior.
[2017-02-07] MEDS ORDERED: ALBUTEROL/IPRATROPIUM 2.5mg-0.5mg/3ml NEB AEROSOL SCH (14:45)
[2017-02-07 15:11] VITALS: BMI 35.4
[2017-02-07] MEDS: CYANOCOBALAMIN (B-12) 500mcg TABLET PO SCH (17:38)
[2017-02-07] MEDS: LISINOPRIL 2.5 MG TABLET PO SCH (20:06)
[2017-02-07] MEDS: ClonazePAM 0.5 MG TABLET PO SCH (20:11)
[2017-02-08] MEDS: NICOTINE 7 MG PATCH TD SCH (09:05)
[2017-02-08] MEDS: ENOXAPARIN 40 MG/0.4 ML INJECTION SQ SCH (09:05)
[2017-02-08] MEDS: NICOTINE PATCH REMOVAL TD SCH (09:05)
[2017-02-08] MEDS: TAMSULOSIN 0.4 MG CAPSULE PO SCH (09:28)
[2017-02-08] MEDS: ASPIRIN *EC* 81 MG TABLET PO SCH (09:28)
[2017-02-08] MEDS: ACETAMINOPHEN 325 MG TABLET PO SCH ×3 (09:28→20:07)
[2017-02-08] MEDS: CLOPIDOGREL 75 MG TABLET PO SCH (09:29)
[2017-02-08] MEDS: HALOPERIDOL 1 MG TABLET PO SCH (09:29)
[2017-02-08] MEDS: ALLOPURINOL 300 MG TABLET PO SCH (09:29)
[2017-02-08] MEDS: RANITIDINE 150 MG TABLET PO SCH ×2 (09:30→20:08)
[2017-02-08] MEDS: CARVEDILOL 6.25 MG TABLET PO SCH ×2 (09:34→17:13)
[2017-02-08] MEDS: FUROSEMIDE 40 MG TABLET PO SCH (09:34)
[2017-02-08] MEDS: INSULIN GLARGINE 100unit/ml INJECTION SQ SCH ×2 (09:40→20:29)
[2017-02-08] MEDS: CYANOCOBALAMIN (B-12) 500mcg TABLET PO SCH (09:46)
[2017-02-08] MEDS ORDERED: TRAMADOL 50 MG TABLET PO ONE (13:42)
--- NOTE | 2017-02-08 17:14 | Neuropsych Progress Note ---
[facility] Subjective Date: 02/09/17 - Sujective/Severity of Illness Medications: Acetaminophen (Tylenol) 650 mg PO TID [facility] Last Admin: 02/08/17 15:01 Dose: Not Given Albuterol/Ipratropium (Duoneb) 3 ml AEROSOL QIDPRN [facility] Allopurinol (Zyloprim) 300 mg PO DAILY [facility] Last Admin: 02/08/17 09:29 Dose: 300 mg Aspirin (Ecotrin) 81 mg PO DAILY [facility] Last Admin: 02/08/17 09:28 Dose: 81 mg Carvedilol (Coreg) 6.25 mg PO BIDWM [facility] Last Admin: 02/08/17 09:34 Dose: 6.25 mg Clopidogrel Bisulfate (Plavix) 75 mg PO DAILY [facility] Last Admin: 02/08/17 09:29 Dose: 75 mg Cyanocobalamin (Vit. B-12) 1,000 mcg PO DAILY [facility] Last Admin: 02/08/17 09:46 Dose: 1,000 mcg Enoxaparin Sodium (Lovenox) 40 mg SQ DAILY [facility] Last Admin: 02/08/17 09:05 Dose: 40 mg Furosemide (Lasix) 40 mg PO DAILY [facility] Last Admin: 02/08/17 09:34 Dose: 40 mg Haloperidol (Haldol) 1 mg PO BID [facility] Last Admin: 02/08/17 09:29 Dose: 1 mg Haloperidol (Haldol) 0.5 mg PO Q6H PRN PRN Reason: Agitation Last Admin: 02/05/17 14:56 Dose: 0.5 mg Haloperidol Lactate (Haldol) 0.5 mg IM Q4H PRN PRN Reason: Agitation Insulin Aspart (Novolog) 1 - 5 unit SQ SS PRN; Protocol PRN Reason: Hyperglycemia Insulin Glargine (Lantus) 22 unit SQ BID [facility] Last Admin: 02/08/17 09:40 Dose: 22 unit Lisinopril (Prinivil) 2.5 mg PO HS [facility] Last Admin: 02/07/17 20:06 Dose: 2.5 mg Menthol (Ricola Sf) 1 lozenge MM PRN PRN PRN Reason: Cough Nicotine (Nicoderm) 7 mg TD DAILY [facility] Last Admin: 02/08/17 09:05 Dose: 7 mg Nicotine (Nicotine Patch Removal) 1 removal TD DAILY [facility] Last Admin: 02/08/17 09:05 Dose: 1 removal Potassium Chloride (K-Dur) 20 meq PO WB [facility] Last Admin: 02/08/17 09:28 Dose: 20 meq Ranitidine HCl (Zantac) 150 mg PO BID [facility] Last Admin: 02/08/17 09:30 Dose: 150 mg Tamsulosin HCl (Flomax) 0.4 mg PO DAILY [facility] Last Admin: 02/08/17 09:28 Dose: 0.4 mg Venlafaxine HCl (Effexor Xr) 150 mg PO 09 [facility] Last Admin: 02/08/17 09:30 Dose: 150 mg Subjective: Patient seen and chart reviewed. Case discussed with treatment team. Patient is sitting in dayroom on approach and enjoys socializing. He reports being in a good mood but complains of some back pain. Patient has repeatedly denied any SI, HI or AVH. Patient has denied any adverse side effects related to psychotropic medications. Nursing staff report patient is often euthymic but will had an outburst of agitation/cussing in the evening, including swatting at staff and making sexually inappropriate comments. Patient slept only 1.5 hours overnight. VSS. Patient is eating well. Psychotropic PRNs required in the past 24 hours: None. Start Time: 10:40 Stop Time: 11:00 Mental Status Exam Vitals: Last Vital Signs Temp 97.2 F 02/08/17 16:19 Pulse 95 02/08/17 16:19 Resp 22 02/08/17 16:19 BP 116/69 02/08/17 16:19 Pulse Ox 98 02/08/17 16:19 Height: 1.65 m Weight: 94.3 kg - Mental Status Exam Muscle Strength/Tone: Normal Dressing: Casual Grooming: Fair Attitude: Cooperative, Argumentative (later in evening, not during interview) Motor Activity: Normal Eye Contact: Good Speech: Slowed Volume: Loud Rhythm: Appropriate Rhythm Orientation: Disoriented to time, Disoriented to place, Disoriented to situation , Oriented to person Mood: Euthymic (congruent affect) Affect: Bright (during interview) Rate of Thoughts: Delayed Thought Organization: Confused Associations: Illogical Abstract Reasoning: Impaired, concrete Thought Content: Normal Perception/Psychotic: Hx psychosis, 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 Current Hallucinations: Visual Language: Naming Impaired Fund of Knowledge: Poor fund of knowledge Memory: Poor-recent, Poor-remote Suicidal Ideation: Denies Homicidal Ideation: Denies Insight: Impaired Judgement: Impaired Impulse Control: Poor (at times, not during interview) - Laboratory Result Diagrams: 02/08/17 06:57 02/08/17 06:57 Laboratory Results - last 24 hr 02/07/17 02/08/17 02/08/17 20:32 05:48 06:57 WBC 6.7 RBC 4.17 L Hgb 12.2 L Hct 39.3 L MCV 94.2 MCH 29.3 MCHC 31.0 RDW Std Deviation 55.5 H Plt Count 211 MPV 10.3 Immature Gran % (Auto) 0.1 Neut % (Auto) 52.7 Lymph % (Auto) 32.2 [place] % (Auto) 7.5 Eos % (Auto) 5.7 H Baso % (Auto) 1.8 Neut # (Auto) 3.5 Lymph # (Auto) 2.2 [place] # (Auto) 0.5 Eos # (Auto) 0.4 Baso # (Auto) 0.1 Abs Immat Gran (auto) 0.01 Turbidity Sodium Potassium Chloride Carbon Dioxide Anion Gap BUN Creatinine GFR Calculation BUN/Creatinine Ratio Glucose Glucometer 146 118 Hemoglobin A1c Calculated Osmolality Calcium Icterus Index Specimen Hemolysis 02/08/17 02/08/17 02/08/17 06:57 11:05 14:21 WBC RBC Hgb Hct MCV MCH MCHC RDW Std Deviation Plt Count MPV Immature Gran % (Auto) Neut % (Auto) Lymph % (Auto) [place] % (Auto) Eos % (Auto) Baso % (Auto) Neut # (Auto) Lymph # (Auto) [place] # (Auto) Eos # (Auto) Baso # (Auto) Abs Immat Gran (auto) Turbidity < 20 Sodium 140 Potassium 4.3 Chloride 103 Carbon Dioxide 28 Anion Gap 9 BUN 24.0 H Creatinine 0.9 GFR Calculation 81 BUN/Creatinine Ratio 27 H Glucose 108 Glucometer 191 158 Hemoglobin A1c 7.2 H Calculated Osmolality 274 Calcium 8.8 Icterus Index < 2 Specimen Hemolysis < 15 Assessment and Plan (1) 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 Hospital Course: 02/05/17 Hospitalist consult Agree with admission to [facility] for psychiatric evaluation and tx and to provide safe environment. Continue Acapella and Duoneb treatments for residual respiratory symptoms originally associated with rhinovirus. Patient is no longer contagious. Accuchecks ac, hs and prn. Continue insulin orders from acute admission. Continue routine medications for chronic medical problems. Patient code status is DNR. Care to return to PCP, Dr Hussain Hsu, upon dismissal. We will follow patient medically along with you throughout his stay. Thank you for the consult. 02/06/17 Psych: Will decrease Klonopin to 0.25mg PO q HS with plan to discontinue. Will discuss utility of statin with hospitalist given patient's age and mental condition, could be contributing to HS agitation. Will continue to monitor behavior and discuss with DPOA whether they would like to try Risperdal. 02/07/17 Psych: Continue current care; staff to try interventions to minimize inappropriate sexual behavior. 02/08/17 Psych: Will change Haldol 1mg PO BID to Risperdal 1mg PO BID, order tramadol 50mg PO x1 and monitor whether this is effective, along with heating pad.
[2017-02-08] MEDS: LISINOPRIL 2.5 MG TABLET PO SCH (20:08)
[2017-02-08] MEDS: RisperiDONE 1 MG TABLET PO SCH (20:29)
[2017-02-09] MEDS: CARVEDILOL 6.25 MG TABLET PO SCH ×2 (10:52→17:19)
[2017-02-09] MEDS: ACETAMINOPHEN 325 MG TABLET PO SCH ×3 (10:54→21:10)
[2017-02-09] MEDS: CYANOCOBALAMIN (B-12) 500mcg TABLET PO SCH (10:55)
[2017-02-09] MEDS: ALLOPURINOL 300 MG TABLET PO SCH (10:55)
[2017-02-09] MEDS: ASPIRIN *EC* 81 MG TABLET PO SCH (10:55)
[2017-02-09] MEDS: CLOPIDOGREL 75 MG TABLET PO SCH (10:55)
[2017-02-09] MEDS: ENOXAPARIN 40 MG/0.4 ML INJECTION SQ SCH (10:57)
[2017-02-09] MEDS: FUROSEMIDE 40 MG TABLET PO SCH (10:57)
[2017-02-09] MEDS: INSULIN GLARGINE 100unit/ml INJECTION SQ SCH ×2 (10:58→21:09)
[2017-02-09] MEDS: NICOTINE 7 MG PATCH TD SCH (10:58)
[2017-02-09] MEDS: NICOTINE PATCH REMOVAL TD SCH (10:59)
[2017-02-09] MEDS: RisperiDONE 1 MG TABLET PO SCH ×2 (11:01→21:10)
[2017-02-09] MEDS: RANITIDINE 150 MG TABLET PO SCH ×2 (11:01→21:10)
[2017-02-09] MEDS: TAMSULOSIN 0.4 MG CAPSULE PO SCH (11:01)
[2017-02-09] MEDS ORDERED: TRAMADOL 50 MG TABLET PO PRN (16:17)
--- NOTE | 2017-02-09 16:17 | Neuropsych Progress Note ---
[facility] Subjective Date: 02/09/17 - Sujective/Severity of Illness Medications: Acetaminophen (Tylenol) 650 mg PO TID [facility] Last Admin: 02/09/17 15:57 Dose: 650 mg Albuterol/Ipratropium (Duoneb) 3 ml AEROSOL QIDPRN [facility] Allopurinol (Zyloprim) 300 mg PO DAILY [facility] Last Admin: 02/09/17 10:55 Dose: 300 mg Aspirin (Ecotrin) 81 mg PO DAILY [facility] Last Admin: 02/09/17 10:55 Dose: 81 mg Carvedilol (Coreg) 6.25 mg PO BIDWM [facility] Last Admin: 02/09/17 10:52 Dose: Not Given Clopidogrel Bisulfate (Plavix) 75 mg PO DAILY [facility] Last Admin: 02/09/17 10:55 Dose: 75 mg Cyanocobalamin (Vit. B-12) 1,000 mcg PO DAILY [facility] Last Admin: 02/09/17 10:55 Dose: 1,000 mcg Enoxaparin Sodium (Lovenox) 40 mg SQ DAILY [facility] Last Admin: 02/09/17 10:57 Dose: 40 mg Furosemide (Lasix) 40 mg PO DAILY [facility] Last Admin: 02/09/17 10:57 Dose: 40 mg Haloperidol (Haldol) 0.5 mg PO Q6H PRN PRN Reason: Agitation Last Admin: 02/05/17 14:56 Dose: 0.5 mg Haloperidol Lactate (Haldol) 0.5 mg IM Q4H PRN PRN Reason: Agitation Insulin Aspart (Novolog) 1 - 5 unit SQ SS PRN; Protocol PRN Reason: Hyperglycemia Insulin Glargine (Lantus) 22 unit SQ BID [facility] Last Admin: 02/09/17 10:58 Dose: 22 unit Lisinopril (Prinivil) 2.5 mg PO HS [facility] Last Admin: 02/08/17 20:08 Dose: 2.5 mg Menthol (Ricola Sf) 1 lozenge MM PRN PRN PRN Reason: Cough Nicotine (Nicoderm) 7 mg TD DAILY [facility] Last Admin: 02/09/17 10:58 Dose: 7 mg Nicotine (Nicotine Patch Removal) 1 removal TD DAILY [facility] Last Admin: 02/09/17 10:59 Dose: 1 removal Potassium Chloride (K-Dur) 20 meq PO WB [facility] Last Admin: 02/09/17 10:54 Dose: 20 meq Ranitidine HCl (Zantac) 150 mg PO BID [facility] Last Admin: 02/09/17 11:01 Dose: 150 mg Risperidone (Risperdal) 1 mg PO BID [facility] Last Admin: 02/09/17 11:01 Dose: 1 mg Tamsulosin HCl (Flomax) 0.4 mg PO DAILY [facility] Last Admin: 02/09/17 11:01 Dose: 0.4 mg Venlafaxine HCl (Effexor Xr) 150 mg PO 09 [facility] Last Admin: 02/09/17 11:01 Dose: 150 mg Subjective: Patient seen and chart reviewed. Case discussed with treatment team. Patient is sitting in dayroom on approach and enjoys socializing. He reports being in a good mood and reports feeling well physically today. Patient has repeatedly denied any SI, HI or AVH. Patient has denied any adverse side effects related to psychotropic medications. Nursing staff report patient has been pleasant/cooperative over past 24 hours. He is adherent with medications. Patient slept 6.25 hours overnight. HR mildly elevated and BP low this morning; will address with hospitalist. Patient is eating well and drinking plenty of decaf coffee. Psychotropic PRNs required in the past 24 hours: None. Start Time: 10:40 Stop Time: 11:00 Mental Status Exam Vitals: Last Vital Signs Temp 96.8 F 02/09/17 08:00 Pulse 105 H 02/09/17 08:00 Resp 16 02/09/17 08:00 BP 84/60 02/09/17 08:00 Pulse Ox 98 02/09/17 08:00 Height: 1.65 m Weight: 94.3 kg - Mental Status Exam Muscle Strength/Tone: Normal Dressing: Casual Grooming: Fair Attitude: Cooperative Motor Activity: Normal Eye Contact: Good Speech: Slowed Volume: Loud Rhythm: Appropriate Rhythm Orientation: Disoriented to time, Disoriented to place, Disoriented to situation , Oriented to person Mood: Euthymic (congruent affect) Affect: Relaxed Rate of Thoughts: Delayed Thought Organization: Confused Associations: Illogical Abstract Reasoning: Impaired, concrete Thought Content: Normal Perception/Psychotic: Hx psychosis, 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 Current Hallucinations: Visual Language: Naming Impaired Fund of Knowledge: Poor fund of knowledge Memory: Poor-recent, Poor-remote Suicidal Ideation: Denies Homicidal Ideation: Denies Insight: Impaired Judgement: Impaired Impulse Control: Other (Limited) - Laboratory Result Diagrams: 02/08/17 06:57 02/08/17 06:57 Laboratory Results - last 24 hr 02/08/17 02/09/17 02/09/17 20:23 06:13 14:24 Glucometer 157 113 189 Assessment and Plan (1) 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 Hospital Course: 02/05/17 Hospitalist consult Agree with admission to [facility] for psychiatric evaluation and tx and to provide safe environment. Continue Acapella and Duoneb treatments for residual respiratory symptoms originally associated with rhinovirus. Patient is no longer contagious. Accuchecks ac, hs and prn. Continue insulin orders from acute admission. Continue routine medications for chronic medical problems. Patient code status is DNR. Care to return to PCP, Dr Hussain Hsu, upon dismissal. We will follow patient medically along with you throughout his stay. Thank you for the consult. 02/06/17 Psych: Will decrease Klonopin to 0.25mg PO q HS with plan to discontinue. Will discuss utility of statin with hospitalist given patient's age and mental condition, could be contributing to HS agitation. Will continue to monitor behavior and discuss with DPOA whether they would like to try Risperdal. 02/07/17 Psych: Continue current care; staff to try interventions to minimize inappropriate sexual behavior. 02/08/17 Psych: Will change Haldol 1mg PO BID to Risperdal 1mg PO BID, order tramadol 50mg PO x1 and monitor whether this is effective, along with heating pad. 02/09/17 Psych: Will schedule tramadol 50mg PO q 6 hrs PRN as it was effective for back pain; continue current care otherwise - monitoring response to Risperdal.
[2017-02-09] MEDS: LISINOPRIL 2.5 MG TABLET PO SCH (21:07)
[2017-02-10] MEDS: INSULIN GLARGINE 100unit/ml INJECTION SQ SCH ×2 (08:27→20:00)
[2017-02-10] MEDS: ENOXAPARIN 40 MG/0.4 ML INJECTION SQ SCH (08:28)
[2017-02-10] MEDS: NICOTINE PATCH REMOVAL TD SCH (08:29)
[2017-02-10] MEDS: NICOTINE 7 MG PATCH TD SCH (08:29)
[2017-02-10] MEDS: RANITIDINE 150 MG TABLET PO SCH ×2 (08:30→20:02)
[2017-02-10] MEDS: RisperiDONE 1 MG TABLET PO SCH ×2 (08:30→20:03)
[2017-02-10] MEDS: ALLOPURINOL 300 MG TABLET PO SCH (08:30)
[2017-02-10] MEDS: FUROSEMIDE 40 MG TABLET PO SCH (08:30)
[2017-02-10] MEDS: CYANOCOBALAMIN (B-12) 500mcg TABLET PO SCH (08:30)
[2017-02-10] MEDS: TAMSULOSIN 0.4 MG CAPSULE PO SCH (08:30)
[2017-02-10] MEDS: ASPIRIN *EC* 81 MG TABLET PO SCH (08:30)
[2017-02-10] MEDS: CARVEDILOL 6.25 MG TABLET PO SCH ×2 (08:30→16:48)
[2017-02-10] MEDS: CLOPIDOGREL 75 MG TABLET PO SCH (08:30)
[2017-02-10] MEDS: ACETAMINOPHEN 325 MG TABLET PO SCH ×3 (08:31→20:02)
--- NOTE | 2017-02-10 15:57 | Neuropsych Progress Note ---
[facility] Subjective Date: 02/10/17 - Sujective/Severity of Illness Medications: Acetaminophen (Tylenol) 650 mg PO TID [facility] Last Admin: 02/10/17 15:11 Dose: 650 mg Albuterol/Ipratropium (Duoneb) 3 ml AEROSOL QIDPRN [facility] Allopurinol (Zyloprim) 300 mg PO DAILY [facility] Last Admin: 02/10/17 08:30 Dose: 300 mg Aspirin (Ecotrin) 81 mg PO DAILY [facility] Last Admin: 02/10/17 08:30 Dose: 81 mg Carvedilol (Coreg) 6.25 mg PO BIDWM [facility] Last Admin: 02/10/17 08:30 Dose: 6.25 mg Clopidogrel Bisulfate (Plavix) 75 mg PO DAILY [facility] Last Admin: 02/10/17 08:30 Dose: 75 mg Cyanocobalamin (Vit. B-12) 1,000 mcg PO DAILY [facility] Last Admin: 02/10/17 08:30 Dose: 1,000 mcg Enoxaparin Sodium (Lovenox) 40 mg SQ DAILY [facility] Last Admin: 02/10/17 08:28 Dose: 40 mg Furosemide (Lasix) 40 mg PO DAILY [facility] Last Admin: 02/10/17 08:30 Dose: 40 mg Haloperidol (Haldol) 0.5 mg PO Q6H PRN PRN Reason: Agitation Last Admin: 02/05/17 14:56 Dose: 0.5 mg Haloperidol Lactate (Haldol) 0.5 mg IM Q4H PRN PRN Reason: Agitation Insulin Aspart (Novolog) 1 - 5 unit SQ SS PRN; Protocol PRN Reason: Hyperglycemia Insulin Glargine (Lantus) 22 unit SQ BID [facility] Last Admin: 02/10/17 08:27 Dose: 22 unit Lisinopril (Prinivil) 2.5 mg PO HS [facility] Last Admin: 02/09/17 21:07 Dose: Not Given Menthol (Ricola Sf) 1 lozenge MM PRN PRN PRN Reason: Cough Nicotine (Nicoderm) 7 mg TD DAILY [facility] Last Admin: 02/10/17 08:29 Dose: 7 mg Nicotine (Nicotine Patch Removal) 1 removal TD DAILY [facility] Last Admin: 02/10/17 08:29 Dose: 1 removal Potassium Chloride (K-Dur) 20 meq PO WB [facility] Last Admin: 02/10/17 08:30 Dose: 20 meq Ranitidine HCl (Zantac) 150 mg PO BID [facility] Last Admin: 02/10/17 08:30 Dose: 150 mg Risperidone (Risperdal) 1 mg PO BID [facility] Last Admin: 02/10/17 08:30 Dose: 1 mg Tamsulosin HCl (Flomax) 0.4 mg PO DAILY [facility] Last Admin: 02/10/17 08:30 Dose: 0.4 mg Tramadol HCl (Ultram) 50 mg PO Q6H PRN PRN Reason: Pain Venlafaxine HCl (Effexor Xr) 150 mg PO 09 [facility] Last Admin: 02/10/17 08:30 Dose: 150 mg Subjective: Patient seen and chart reviewed. Case discussed with treatment team. Patient is sitting in dayroom on approach and enjoys socializing. He reports being in a good mood and reports feeling well physically today. Patient has repeatedly denied any SI, HI or AVH. Patient has denied any adverse side effects related to psychotropic medications. Nursing staff report patient has been pleasant/cooperative over past 24 hours. He is adherent with medications. Patient slept 6 hours overnight. VSS. Psychotropic PRNs required in the past 24 hours: None. Start Time: 13:40 Stop Time: 14:00 Mental Status Exam Vitals: Last Vital Signs Temp 96.6 F L 02/10/17 07:53 Pulse 111 H 02/10/17 07:53 Resp 20 02/10/17 07:53 BP 136/78 02/10/17 07:53 Pulse Ox 99 02/10/17 07:53 Height: 1.65 m Weight: 94.1 kg - Mental Status Exam Muscle Strength/Tone: Normal Dressing: Casual Grooming: Fair Attitude: Cooperative Motor Activity: Normal Eye Contact: Good Speech: Slowed Volume: Loud Rhythm: Appropriate Rhythm Orientation: Disoriented to time, Disoriented to place, Disoriented to situation , Oriented to person Mood: Euthymic Affect: Bright Rate of Thoughts: Delayed Thought Organization: Organized Associations: Intact Abstract Reasoning: Poor abstract reasoning Thought Content: Normal Perception/Psychotic: Hx psychosis, 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 Current Hallucinations: Visual Language: Naming Impaired Fund of Knowledge: Poor fund of knowledge Memory: Poor-recent Suicidal Ideation: Denies Homicidal Ideation: Denies Insight: Impaired Judgement: Impaired Impulse Control: Fair - Laboratory Result Diagrams: 02/08/17 06:57 02/08/17 06:57 Laboratory Results - last 24 hr 02/09/17 02/09/17 02/10/17 14:24 19:57 06:22 Glucometer 189 191 103 02/10/17 10:35 Glucometer 185 Assessment and Plan (1) 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 Hospital Course: 02/05/17 Hospitalist consult Agree with admission to [facility] for psychiatric evaluation and tx and to provide safe environment. Continue Acapella and Duoneb treatments for residual respiratory symptoms originally associated with rhinovirus. Patient is no longer contagious. Accuchecks ac, hs and prn. Continue insulin orders from acute admission. Continue routine medications for chronic medical problems. Patient code status is DNR. Care to return to PCP, Dr Hussain Hsu, upon dismissal. We will follow patient medically along with you throughout his stay. Thank you for the consult. 02/06/17 Psych: Will decrease Klonopin to 0.25mg PO q HS with plan to discontinue. Will discuss utility of statin with hospitalist given patient's age and mental condition, could be contributing to HS agitation. Will continue to monitor behavior and discuss with DPOA whether they would like to try Risperdal. 02/07/17 Psych: Continue current care; staff to try interventions to minimize inappropriate sexual behavior. 02/08/17 Psych: Will change Haldol 1mg PO BID to Risperdal 1mg PO BID, order tramadol 50mg PO x1 and monitor whether this is effective, along with heating pad. 02/09/17 Psych: Will schedule tramadol 50mg PO q 6 hrs PRN as it was effective for back pain; continue current care otherwise - monitoring response to Risperdal. 02/10/17 Psych: Patient continues to do well overall; will begin networking with LTC facility regarding return/discharge.
[2017-02-10] MEDS: LISINOPRIL 2.5 MG TABLET PO SCH (20:03)
[2017-02-11] MEDS: RisperiDONE 1 MG TABLET PO SCH ×2 (08:06→20:23)
[2017-02-11] MEDS: FUROSEMIDE 40 MG TABLET PO SCH (08:06)
[2017-02-11] MEDS: CYANOCOBALAMIN (B-12) 500mcg TABLET PO SCH (08:06)
[2017-02-11] MEDS: CARVEDILOL 6.25 MG TABLET PO SCH ×2 (08:06→17:19)
[2017-02-11] MEDS: ASPIRIN *EC* 81 MG TABLET PO SCH (08:06)
[2017-02-11] MEDS: ENOXAPARIN 40 MG/0.4 ML INJECTION SQ SCH (08:06)
[2017-02-11] MEDS: CLOPIDOGREL 75 MG TABLET PO SCH (08:07)
[2017-02-11] MEDS: TAMSULOSIN 0.4 MG CAPSULE PO SCH (08:07)
[2017-02-11] MEDS: ALLOPURINOL 300 MG TABLET PO SCH (08:07)
[2017-02-11] MEDS: RANITIDINE 150 MG TABLET PO SCH ×2 (08:07→20:23)
[2017-02-11] MEDS: ACETAMINOPHEN 325 MG TABLET PO SCH ×3 (08:07→20:22)
[2017-02-11] MEDS: INSULIN GLARGINE 100unit/ml INJECTION SQ SCH ×2 (08:08→20:21)
[2017-02-11] MEDS: NICOTINE 7 MG PATCH TD SCH (09:13)
[2017-02-11] MEDS: NICOTINE PATCH REMOVAL TD SCH (09:14)
--- NOTE | 2017-02-11 14:20 | Neuropsych Progress Note ---
[facility] Subjective Date: 02/11/17 - Sujective/Severity of Illness Medications: Acetaminophen (Tylenol) 650 mg PO TID [facility] Last Admin: 02/11/17 08:07 Dose: 650 mg Albuterol/Ipratropium (Duoneb) 3 ml AEROSOL QIDPRN [facility] Allopurinol (Zyloprim) 300 mg PO DAILY [facility] Last Admin: 02/11/17 08:07 Dose: 300 mg Aspirin (Ecotrin) 81 mg PO DAILY [facility] Last Admin: 02/11/17 08:06 Dose: 81 mg Carvedilol (Coreg) 6.25 mg PO BIDWM [facility] Last Admin: 02/11/17 08:06 Dose: 6.25 mg Clopidogrel Bisulfate (Plavix) 75 mg PO DAILY [facility] Last Admin: 02/11/17 08:07 Dose: 75 mg Cyanocobalamin (Vit. B-12) 1,000 mcg PO DAILY [facility] Last Admin: 02/11/17 08:06 Dose: 1,000 mcg Enoxaparin Sodium (Lovenox) 40 mg SQ DAILY [facility] Last Admin: 02/11/17 08:06 Dose: 40 mg Furosemide (Lasix) 40 mg PO DAILY [facility] Last Admin: 02/11/17 08:06 Dose: 40 mg Haloperidol (Haldol) 0.5 mg PO Q6H PRN PRN Reason: Agitation Last Admin: 02/05/17 14:56 Dose: 0.5 mg Haloperidol Lactate (Haldol) 0.5 mg IM Q4H PRN PRN Reason: Agitation Insulin Aspart (Novolog) 1 - 5 unit SQ SS PRN; Protocol PRN Reason: Hyperglycemia Insulin Glargine (Lantus) 22 unit SQ BID [facility] Last Admin: 02/11/17 08:08 Dose: 22 unit Lisinopril (Prinivil) 2.5 mg PO HS [facility] Last Admin: 02/10/17 20:03 Dose: 2.5 mg Menthol (Ricola Sf) 1 lozenge MM PRN PRN PRN Reason: Cough Nicotine (Nicoderm) 7 mg TD DAILY [facility] Last Admin: 02/11/17 09:13 Dose: 7 mg Nicotine (Nicotine Patch Removal) 1 removal TD DAILY [facility] Last Admin: 02/11/17 09:14 Dose: 1 removal Potassium Chloride (K-Dur) 20 meq PO WB [facility] Last Admin: 02/11/17 08:06 Dose: 20 meq Ranitidine HCl (Zantac) 150 mg PO BID [facility] Last Admin: 02/11/17 08:07 Dose: 150 mg Risperidone (Risperdal) 1 mg PO BID [facility] Last Admin: 02/11/17 08:06 Dose: 1 mg Tamsulosin HCl (Flomax) 0.4 mg PO DAILY [facility] Last Admin: 02/11/17 08:07 Dose: 0.4 mg Tramadol HCl (Ultram) 50 mg PO Q6H PRN PRN Reason: Pain Venlafaxine HCl (Effexor Xr) 150 mg PO 09 [facility] Last Admin: 02/11/17 08:06 Dose: 150 mg Subjective: Patient seen and chart reviewed. Case discussed with treatment team. Patient is sleeping during time of rounds so is not interrupted - MSE below based on my last interaction with him. Patient has repeatedly denied any SI, HI or AVH. Patient has denied any adverse side effects related to psychotropic medications. Nursing staff report patient has been pleasant/cooperative over past 24 hours. He is adherent with medications. Patient slept well overnight. VSS. Psychotropic PRNs required in the past 24 hours: None. Start Time: 10:40 Stop Time: 11:00 Mental Status Exam Vitals: Last Vital Signs Temp 97.1 F 02/11/17 07:50 Pulse 104 H 02/11/17 07:50 Resp 20 02/11/17 07:50 BP 126/63 02/11/17 07:50 Pulse Ox 96 02/11/17 07:50 Height: 1.65 m Weight: 93.6 kg - Mental Status Exam Muscle Strength/Tone: Normal Dressing: Casual Grooming: Fair Attitude: Cooperative Motor Activity: Normal Eye Contact: Good Speech: Slowed Volume: Loud Rhythm: Appropriate Rhythm Orientation: Disoriented to time, Disoriented to place, Disoriented to situation , Oriented to person Mood: Euthymic Rate of Thoughts: Delayed Thought Organization: Organized Associations: Intact Abstract Reasoning: Poor abstract reasoning Thought Content: Normal Perception/Psychotic: Hx psychosis, 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 Current Hallucinations: Visual Language: Naming Impaired Fund of Knowledge: Poor fund of knowledge Memory: Poor-recent Suicidal Ideation: Denies Homicidal Ideation: Denies Insight: Impaired Judgement: Impaired Impulse Control: Fair - Laboratory Result Diagrams: 02/08/17 06:57 02/08/17 06:57 Laboratory Results - last 24 hr 12/11/17 12/11/17 12/12/17 15:42 19:50 06:48 Glucometer 153 187 99 02/11/17 10:16 Glucometer 199 Assessment and Plan (1) 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 Hospital Course: 02/05/17 Hospitalist consult Agree with admission to [facility] for psychiatric evaluation and tx and to provide safe environment. Continue Acapella and Duoneb treatments for residual respiratory symptoms originally associated with rhinovirus. Patient is no longer contagious. Accuchecks ac, hs and prn. Continue insulin orders from acute admission. Continue routine medications for chronic medical problems. Patient code status is DNR. Care to return to PCP, Dr Hussain Hsu, upon dismissal. We will follow patient medically along with you throughout his stay. Thank you for the consult. 02/06/17 Psych: Will decrease Klonopin to 0.25mg PO q HS with plan to discontinue. Will discuss utility of statin with hospitalist given patient's age and mental condition, could be contributing to HS agitation. Will continue to monitor behavior and discuss with DPOA whether they would like to try Risperdal. 02/07/17 Psych: Continue current care; staff to try interventions to minimize inappropriate sexual behavior. 02/08/17 Psych: Will change Haldol 1mg PO BID to Risperdal 1mg PO BID, order tramadol 50mg PO x1 and monitor whether this is effective, along with heating pad. 02/09/17 Psych: Will schedule tramadol 50mg PO q 6 hrs PRN as it was effective for back pain; continue current care otherwise - monitoring response to Risperdal. 02/10/17 Psych: Patient continues to do well overall; will begin networking with LTC facility regarding return/discharge. 02/11/17 Psych: Patient doing well, no agitation/aggression or sexually inappropriate comments - plan to return to facility tomorrow for further SNU care.
--- NOTE | 2017-02-11 14:27 | Neuropsychiatric Disch Summary ---
Discharge Information Date of admission: 02/04/17 13:30 Anticipated date of discharge: 02/12/17 Attending Physician: Nichole Goetz MD Consults: 02/04/17 15:34 Case Management Consult [CONS] Routine Reason For Exam: Optimization of medical comorbidities Physician Consult [CONS] Routine Consulting Provider: Hua Angela Reason For Exam: Optimization of medical comorbidities Ordering Provider has Notified [employer]: No Comment: Nursing - please notify 02/07/17 10:16 Dietary Consult [CONS] Routine Comment: Reason For Exam: - Discharge Diagnosis (1) Major neurocognitive disorder Status: Chronic (2) COPD (chronic obstructive pulmonary disease) Status: Chronic (3) Congestive heart failure Status: Chronic (4) History of CVA (cerebrovascular accident) Status: Resolved (5) Hyperlipidemia Status: Chronic (6) Hypertension Status: Chronic (7) Type 2 diabetes mellitus Status: Chronic Major neurocognitive disorder, vascular, moderate, with behavioral disturbance - Laboratory Labs: 02/08/17 06:57 02/08/17 06:57 Date of Admission: 02/04/17 13:30 History of Present Illness: Patient is an 81-year-old male who was admitted to [facility] on 02/04/17 due to continued agitation during his medical hospitalization. Per hospitalist: "Patient is an 81-year-old male who originally presented to our emergency department for clearance to [facility] on 01/28/17. He had a stroke on December 05, and after a short hospital stay, was transferred to rehabilitation unit on December 08. He was transferred here due to increasing behavioral issues. Apparently, he became combative and aggressive to staff, throwing chairs and swinging equipment around the room. Prior to his stroke he was living with his daughter and grandson at their home in [place]. Grandson reports patient has dementia, but prior to his stroke, had no major behavioral issues other than "having a bad day" now and then. Patient was not cleared for [facility] and was admitted to acute medical floor due to finding of UTI. After admission, he was also found to be positive for rhinovirus. During his medical stay, he was kept on precautions for rhinovirus and received DuoNeb treatments and Acapella. His UTI was initially treated with ceftriaxone, and after sensitivities were resulted, was converted to cephalexin. He also presented with herpes zoster on the face which was treated with a course of valacyclovir. Psychiatry was consulted during his stay due to behavioral disturbances." On interview, patient is quite pleasant and cooperative but actively hallucinating and believes there is poison in his hand, and that the bruise on his arm are due to poison as well. He gives me very inaccurate information throughout the interview (such as telling me he has 2 sons, when in reality he has 1 daughter). He denies SI, HI or AVH but has limited insight into symptoms/ hospitalization. Nursing staff report patient makes occasional inappropriate comments with them but he has not attempted to touch them inappropriately. No agitation since arrival on unit. Patient did sleep for only 2 hours last night. Hospital Course This is a general summary of the patient's hospital course. For more details refer to the complete medical record. Hospital course: 02/05/17 Hospitalist consult Agree with admission to [facility] for psychiatric evaluation and tx and to provide safe environment. Continue Acapella and Duoneb treatments for residual respiratory symptoms originally associated with rhinovirus. Patient is no longer contagious. Accuchecks ac, hs and prn. Continue insulin orders from acute admission. Continue routine medications for chronic medical problems. Patient code status is DNR. Care to return to PCP, Dr Hussain Hsu, upon dismissal. We will follow patient medically along with you throughout his stay. Thank you for the consult. 02/06/17 Psych: Will decrease Klonopin to 0.25mg PO q HS with plan to discontinue. Will discuss utility of statin with hospitalist given patient's age and mental condition, could be contributing to HS agitation. Will continue to monitor behavior and discuss with DPOA whether they would like to try Risperdal. 02/07/17 Psych: Continue current care; staff to try interventions to minimize inappropriate sexual behavior. 02/08/17 Psych: Will change Haldol 1mg PO BID to Risperdal 1mg PO BID, order tramadol 50mg PO x1 and monitor whether this is effective, along with heating pad. 02/09/17 Psych: Will schedule tramadol 50mg PO q 6 hrs PRN as it was effective for back pain; continue current care otherwise - monitoring response to Risperdal. 02/10/17 Psych: Patient continues to do well overall; will begin networking with LTC facility regarding return/discharge. 02/11/17 Psych: Patient doing well, no agitation/aggression or sexually inappropriate comments - plan to return to facility tomorrow for further SNU care. Discharge Plan - Med Rec/Dispo Referrals/Follow Up: Hussain Hsu MD [Other] (Dr. Hussain Hsu will see patient on rounds at the facility for Hosp. follow- up. . Fernie Manjarrez will see patient on rounds at the facility for Mental Health follow-up. ) Additional Instructions: Discharge Diagnosis: Reasons for Admission: Confusion, agitation, and combative behaviors with nursing staff. IN CASE OF PSYCHIATRIC EMERGENCY, CONTACT [facility] AT [phone] ( available 24 hrs daily). Prescriptions: New Carvedilol [Coreg] 6.25 mg PO BIDWM tab Cyanocobalamin (B-12) [Vit. B-12] 1,000 mcg PO DAILY tab Insulin Aspart [NovoLOG] 1 - 5 unit SQ SS PRN vial PRN Reason: Hyperglycemia RisperiDONE [RisperDAL] 1 mg PO BID tab Tramadol [Ultram] 50 mg PO Q6H PRN tab PRN Reason: Pain Enoxaparin Sodium [Lovenox] 40 mg SQ DAILY syringe Venlafaxine XR [Effexor Xr] 150 mg PO 09 cap Continue Aspirin *EC* [Ecotrin] 81 mg PO DAILY Allopurinol [Zyloprim] 300 mg PO DAILY Acetaminophen 650 mg PO TID Clopidogrel Bisulfate [Clopidogrel] 75 mg PO DAILY Lisinopril [Prinivil] 2.5 mg PO HS Insulin Glargine [Lantus] 22 units SQ BID Ranitidine [Zantac] 150 mg PO BID Potassium Chloride [K-Tab ER] 20 meq PO DAILY Furosemide [Lasix] 40 mg PO DAILY Tamsulosin [Flomax] 0.4 mg PO DAILY Albuterol/Ipratropium [Duoneb] 3 ml AEROSOL RTQID each Discontinued Carvedilol [Coreg] 6.25 mg PO BIDWM tab ClonazePAM [Klonopin] 0.5 mg PO HS tab Enoxaparin Sodium [Lovenox] 40 mg SQ DAILY syringe Haloperidol [Haldol] 1 mg PO BID #60 tab Nicotine Patch [Nicoderm] 7 mg TD DAILY patch Nicotine Patch Removal 1 removal TD DAILY patch CephALEXin [Keflex] 500 mg PO Q12H #2 cap Haloperidol [Haldol] 0.5 mg PO Q4HR PRN #30 tab PRN Reason: Agitation Venlafaxine XR [Effexor Xr] 150 mg PO 09 cap - Disposition 03 To [facility])
[2017-02-11] MEDS: LISINOPRIL 2.5 MG TABLET PO SCH (20:22)
[2017-02-12 09:26] VITALS: BP 127/67; PULSE 109; RESP 20; TEMP 97.6; O2SAT 96
[2017-02-12] MEDS: ALLOPURINOL 300 MG TABLET PO SCH (09:27)
[2017-02-12] MEDS: CLOPIDOGREL 75 MG TABLET PO SCH (09:27)
[2017-02-12] MEDS: CARVEDILOL 6.25 MG TABLET PO SCH (09:27)
[2017-02-12] MEDS: CYANOCOBALAMIN (B-12) 500mcg TABLET PO SCH (09:27)
[2017-02-12] MEDS: TAMSULOSIN 0.4 MG CAPSULE PO SCH (09:27)
[2017-02-12] MEDS: RisperiDONE 1 MG TABLET PO SCH (09:27)
[2017-02-12] MEDS: ASPIRIN *EC* 81 MG TABLET PO SCH (09:27)
[2017-02-12] MEDS: ACETAMINOPHEN 325 MG TABLET PO SCH (09:28)
[2017-02-12] MEDS: RANITIDINE 150 MG TABLET PO SCH (09:28)
[2017-02-12] MEDS: FUROSEMIDE 40 MG TABLET PO SCH (09:28)
[2017-02-12] MEDS: NICOTINE 7 MG PATCH TD SCH (09:28)
[2017-02-12] MEDS: NICOTINE PATCH REMOVAL TD SCH (09:29)
[2017-02-12] MEDS: INSULIN GLARGINE 100unit/ml INJECTION SQ SCH (09:32)
[2017-02-12] MEDS: ENOXAPARIN 40 MG/0.4 ML INJECTION SQ SCH (09:32)
== END 2017-02-12 10:55 | DRG 884 ==
LOC: GEN 13:30
PROVIDERS: ADMIT Psychiatry & Neurology Psychiatry; ATTEND Psychiatry & Neurology Psychiatry